=== PATIENT | male | born 1960 | race Caucasian/White ===

== ENCOUNTER 2020-08-18 09:54 | Outpatient (REF) | payer BC, SELFPAY | END 2020-08-18 09:55 | disposition home or self-care (01) | LOC: HO.LAB 09:54 | PROVIDERS: Visit Provider Internal Medicine | DX: Z20.822 Contact with and (suspected) exposure to COVID-19 (principal) | CPT/HCPCS: 36415; C9803; U0003; U0005 ==

== ENCOUNTER → 2021-01-03 09:20 | Outpatient (BNVA) | payer OTHER, SELFPAY | PROVIDERS: PCP Internal Medicine; Visit Provider Internal Medicine | DX: S29.012A Strain of muscle and tendon of back wall of thorax, initial encounter (principal); X50.3XXA Overexertion from repetitive movements, initial encounter | CPT/HCPCS: 99203 ==

== ENCOUNTER → 2021-01-06 08:04 | Outpatient (BNVA) | payer OTHER, SELFPAY | PROVIDERS: PCP Internal Medicine; Visit Provider Physician Assistant Medical | DX: S29.012A Strain of muscle and tendon of back wall of thorax, initial encounter (principal); X58.XXXA Exposure to other specified factors, initial encounter | CPT/HCPCS: 99213 ==

== ENCOUNTER 2021-04-04 10:24 | Outpatient (REF) | payer BC, SELFPAY ==
[2021-04-04 10:28] LABS: MANUAL DIFF FLAG NO
[2021-04-04 10:54] LABS: Basophils Percent Auto 0.3 % (0-2); Eosinophils Absolute Auto 0.2 X10*3/uL (0.0-0.4); Eosinophils Percent Auto 3.5 % (0-4); Hematocrit 45.4 % (42-52); Hemoglobin 15.3 g/dl (14.0-18.0); Imm Gran Abs Auto 0.02 X10*3/uL (0.00-0.03); Imm Gran Pct Auto 0.3 % (0.0-0.4); Lymphocytes Percent Auto 32.6 % (20-40); Mean Corpuscular HGB Conc 33.7 g/dl (31.0-36.0); Mean Corpuscular Hemoglobin 29.9 pg (27.0-33.0); Mean Corpuscular Volume 88.7 fL (80-98); Mean Platelet Volume 10.2 fL (9.4-12.4); Monocytes Absolute Auto 0.7 X10*3/uL (0.1-1.2); Monocytes Percent Auto 10.9 % (2-11); Neutrophils Absolute Auto 3.1 X10*3/uL (2.0-8.3); Neutrophils Percent Auto 52.4 % (45-73); Platelet Count 148 X10*3/uL (160-400); Red Blood Count 5.12 X10*6/uL (4.60-5.80); Red Cell Distribution Width 13.2 % (11.0-16.0)
[2021-04-04 11:17] LABS: Appearance Urine CLEAR; Color Urine YELLOW; Glucose Urine UA NEG (NEG); Leukocyte Esterase Urine NEG (NEG); Nitrite Urine NEG (NEG); PH 5.5 (5.0-8.0); Specific Gravity - Urine >= 1.030 (1.005-1.025); Urine Blood TRACE (NEG); Urine Ketones NEG (NEG); Urine Protein NEG (NEG-TRACE)
[2021-04-04 11:30] LABS: Alanine Aminotransferase 20 U/L (0-40); Anion Gap 12 (12-20); Aspartate Amino Transferase 20 U/L (5-37); Bilirubin Total 0.8 mg/dL (0.0-1.0); Blood Urea Nitrogen 20 mg/dL (9-16); Calcium 8.9 mg/dL (8.4-10.2); Carbon Dioxide 26 mmol/L (22-29); Chloride 106 mmol/L (96-108); Cholesterol 216 mg/dL; Estimated Glomerular Filt Rate 59; Glucose Fasting 120 mg/dL (60-99); HDL Cholesterol 46 mg/dL; Potassium 4.2 mmol/L (3.3-5.1); Sodium 140 mmol/L (135-145); Triglycerides 144 mg/dL
[2021-04-04 11:31] LABS: Alkaline Phosphatase 56 U/L (39-117); LDL Cholesterol Calculated 142 mg/dl
[2021-04-04 11:48] LABS: Estimated Average Glucose 111 mg/dL; Hemoglobin A1c % 5.5 %
[2021-04-04 11:56] LABS: Creatinine Urine 204.87 mg/dL; Microalbum/Creatinine Ratio Ur 2.4 ug/mg cr
[2021-04-04 12:17] LABS: Amorphous Sediment Urine TRACE /LPF; Mucus Urine 1+ /LPF; RBC Urine 0-2 /HPF (0); WBC Urine 0-2 /HPF (0-4)
[2021-04-04 12:39] LABS: PSA,Total (Free>4and<10) 0.21 ng/mL (0.00-4.00)
== END 2021-04-04 10:25 | disposition home or self-care (01) ==
LOC: HO.LNP 10:24
PROVIDERS: Visit Provider Internal Medicine
DX: Z00.00 Encounter for general adult medical examination without abnormal findings (principal); Z12.5 Encounter for screening for malignant neoplasm of prostate; R73.03 Prediabetes; R94.5 Abnormal results of liver function studies
CPT/HCPCS: 80053; 80061; 81001; 81003; 82043; 83036; 84153; 85025

== ENCOUNTER 2021-05-22 10:14 | Outpatient (REF) | payer OTHER, SELFPAY ==
[2021-05-22 10:17] LABS: MANUAL DIFF FLAG NO
[2021-05-22 11:01] LABS: Basophils Percent Auto 0.7 % (0-2); Eosinophils Absolute Auto 0.2 X10*3/uL (0.0-0.4); Eosinophils Percent Auto 3.9 % (0-4); Hematocrit 45.2 % (42.0-52.0); Imm Gran Abs Auto 0.01 X10*3/uL (0.00-0.03); Imm Gran Pct Auto 0.2 % (0.0-0.4); Lymphocytes Absolute Auto 1.9 X10*3/uL (1.2-4.9); Lymphocytes Percent Auto 33.8 % (20-40); Mean Corpuscular HGB Conc 33.2 g/dl (31.0-36.0); Mean Corpuscular Hemoglobin 29.4 pg (27.0-33.0); Mean Corpuscular Volume 88.6 fL (80.0-98.0); Mean Platelet Volume 10.1 fL (9.4-12.4); Monocytes Absolute Auto 0.5 X10*3/uL (0.1-1.2); Monocytes Percent Auto 8.9 % (2-11); Neutrophils Percent Auto 52.5 % (45-73); Platelet Count 177 X10*3/uL (160-400); Red Cell Distribution Width 12.6 % (11.0-16.0); White Blood Count 5.6 X10*3/uL (4.8-10.8)
== END 2021-05-22 10:15 | disposition home or self-care (01) ==
LOC: HO.LNP 10:14
PROVIDERS: Visit Provider Internal Medicine
DX: D69.6 Thrombocytopenia, unspecified (principal)
CPT/HCPCS: 85025

== ENCOUNTER 2021-07-20 10:03 | Outpatient (REF) | payer BC, SELFPAY ==
[2021-07-20 12:36] LABS: Binax Internal Control QC Valid; Binax Now Covid-19 Ag Positive (Negative)
== END 2021-07-20 10:04 | disposition home or self-care (01) ==
LOC: HO.LAB 10:03
PROVIDERS: Visit Provider Internal Medicine
DX: Z20.822 Contact with and (suspected) exposure to COVID-19 (principal)
CPT/HCPCS: 36415; C9803

== ENCOUNTER 2022-04-05 13:17 | Outpatient (REF) | payer BC, SELFPAY ==
[2022-04-05 13:53] LABS: Alanine Aminotransferase 14 U/L (0-40); Albumin Level 4.1 g/dL (3.5-5.0); Alkaline Phosphatase 52 U/L (39-117); Anion Gap 16 (12-20); Aspartate Amino Transferase 19 U/L (5-37); Bilirubin Total 0.9 mg/dL (0.0-1.0); Blood Urea Nitrogen 15 mg/dL (9-16); Calcium 9.3 mg/dL (8.4-10.2); Carbon Dioxide 26 mmol/L (22-29); Chloride 104 mmol/L (96-108); Estimated Glomerular Filt Rate 60; Glucose Fasting 90 mg/dL (60-99); Potassium 3.9 mmol/L (3.3-5.1); Sodium 142 mmol/L (135-145); Total Protein 7.3 g/dL (6.5-8.0)
[2022-04-05 13:54] LABS: Basophils Absolute Auto 0.1 X10*3/uL (0.0-0.2); Basophils Percent Auto 0.9 % (0-2); Eosinophils Absolute Auto 0.2 X10*3/uL (0.0-0.4); Eosinophils Percent Auto 3.3 % (0-4); Hematocrit 46.9 % (42.0-52.0); Hemoglobin 15.5 g/dl (14.0-18.0); Imm Gran Abs Auto 0.02 X10*3/uL (0.00-0.03); Imm Gran Pct Auto 0.3 % (0.0-0.4); Lymphocytes Absolute Auto 1.9 X10*3/uL (1.2-4.9); Lymphocytes Percent Auto 33.4 % (20-40); MANUAL DIFF FLAG SCAN; Mean Corpuscular Volume 87.8 fL (80.0-98.0); Monocytes Absolute Auto 0.5 X10*3/uL (0.1-1.2); Monocytes Percent Auto 8.2 % (2-11); Neutrophils Absolute Auto 3.1 x10*3/uL (2.0-8.3); Neutrophils Percent Auto 53.9 % (45-73); PLT CLUMP 1; Red Blood Count 5.34 X10*6/uL (4.60-5.80); Red Cell Distribution Width 13.4 % (11.0-16.0); SCAN SMEAR FLAG 1
[2022-04-05 13:55] LABS: Estimated Average Glucose 100 mg/dL; Hemoglobin A1c % 5.1 %
[2022-04-05 13:57] LABS: White Blood Count 5.8 X10*3/uL (4.8-10.8)
[2022-04-05 14:15] LABS: PSA,Total (Free>4and<10) 0.18 ng/mL (0.00-4.00)
[2022-04-05 14:23] LABS: SLIDE REVIEW VERIFIED
== END 2022-04-05 13:18 | disposition home or self-care (01) ==
LOC: HO.LNP 13:17
PROVIDERS: Visit Provider Internal Medicine
DX: Z00.00 Encounter for general adult medical examination without abnormal findings (principal); Z12.5 Encounter for screening for malignant neoplasm of prostate; R73.03 Prediabetes; R94.5 Abnormal results of liver function studies
CPT/HCPCS: 80053; 83036; 84153; 85025

== ENCOUNTER 2022-04-12 11:08 | Outpatient (REF) | payer BC, SELFPAY ==
[2022-04-12 11:23] LABS: Basophils Absolute Auto 0.1 X10*3/uL (0.0-0.2); Basophils Percent Auto 0.9 % (0-2); Eosinophils Absolute Auto 0.2 X10*3/uL (0.0-0.4); Eosinophils Percent Auto 4.1 % (0-4); Hematocrit 44.3 % (42.0-52.0); Hemoglobin 14.8 g/dl (14.0-18.0); Imm Gran Abs Auto 0.02 X10*3/uL (0.00-0.03); Imm Gran Pct Auto 0.4 % (0.0-0.4); Lymphocytes Absolute Auto 1.8 X10*3/uL (1.2-4.9); Lymphocytes Percent Auto 32.5 % (20-40); MANUAL DIFF FLAG SCAN; Mean Corpuscular HGB Conc 33.4 g/dl (31.0-36.0); Mean Corpuscular Hemoglobin 29.2 pg (27.0-33.0); Mean Corpuscular Volume 87.4 fL (80.0-98.0); Monocytes Absolute Auto 0.6 X10*3/uL (0.1-1.2); Monocytes Percent Auto 11.2 % (2-11); Neutrophils Absolute Auto 2.9 x10*3/uL (2.0-8.3); Neutrophils Percent Auto 50.9 % (45-73); PLT CLUMP 1; Red Blood Count 5.07 X10*6/uL (4.60-5.80); Red Cell Distribution Width 13.3 % (11.0-16.0); SCAN SMEAR FLAG 1
[2022-04-12 11:58] LABS: White Blood Count 5.6 X10*3/uL (4.8-10.8)
[2022-04-12 12:06] LABS: SLIDE REVIEW VERIFIED
== END 2022-04-12 11:09 | disposition home or self-care (01) ==
LOC: HO.LNP 11:08
PROVIDERS: Visit Provider Internal Medicine
DX: Z00.00 Encounter for general adult medical examination without abnormal findings (principal)
CPT/HCPCS: 85025

== ENCOUNTER 2022-04-16 10:40 | Outpatient (REF) | payer BC, SELFPAY ==
[2022-04-16 10:55] LABS: INTERNATIONAL NORM RATIO 0.9 (0.9-1.1); Prothrombin Time 10.8 SEC (10.0-13.1)
== END 2022-04-16 10:41 | disposition home or self-care (01) ==
LOC: HO.LNP 10:40
PROVIDERS: Visit Provider Internal Medicine
DX: D69.1 Qualitative platelet defects (principal)
CPT/HCPCS: 85610

== ENCOUNTER 2023-04-26 10:40 | Outpatient (REF) | payer BC, SELFPAY ==
[2023-04-26 10:43] LABS: MANUAL DIFF FLAG NO
[2023-04-26 11:19] LABS: Appearance Urine Clear; Color Urine Dark Yellow; Glucose Urine UA Negative (Negative); Leukocyte Esterase Urine Negative (Negative); Nitrite Urine Negative (Negative); Specific Gravity - Urine 1.025 (1.005-1.025); Urine Blood Negative (Negative); Urine Ketones Negative (Negative); Urine Protein Negative (Neg-Trace)
[2023-04-26 11:24] LABS: Basophils Percent Auto 0.6 % (0-2); Eosinophils Absolute Auto 0.2 X10*3/uL (0.0-0.4); Hematocrit 44.1 % (42.0-52.0); Hemoglobin 14.8 g/dl (14.0-18.0); Imm Gran Abs Auto 0.01 X10*3/uL (0.00-0.03); Imm Gran Pct Auto 0.2 % (0.0-0.4); Lymphocytes Absolute Auto 1.6 X10*3/uL (1.2-4.9); Lymphocytes Percent Auto 31.2 % (20-40); Mean Corpuscular HGB Conc 33.6 g/dl (31.0-36.0); Mean Corpuscular Hemoglobin 29.7 pg (27.0-33.0); Mean Corpuscular Volume 88.4 fL (80.0-98.0); Mean Platelet Volume 9.7 fL (9.4-12.4); Monocytes Absolute Auto 0.5 X10*3/uL (0.1-1.2); Monocytes Percent Auto 9.3 % (2-11); Neutrophils Absolute Auto 2.7 x10*3/uL (2.0-8.3); Neutrophils Percent Auto 54.7 % (45-73); Platelet Count 140 X10*3/uL (160-400); Red Blood Count 4.99 X10*6/uL (4.60-5.80); Red Cell Distribution Width 13.2 % (11.0-16.0)
[2023-04-26 11:25] LABS: Bacteria Urine None Seen (None Seen); Hyaline Casts Urine 0-2 /LPF (0-2); RBC Urine 0-2 /HPF (0-2); Squamous Epithelial Cell Urine 0-2 /HPF (0-2); WBC Urine 0-5 /HPF (0-5)
[2023-04-26 11:29] LABS: Estimated Average Glucose 105 mg/dL; Hemoglobin A1c % 5.3 % (<6.0)
[2023-04-26 11:34] LABS: Alanine Aminotransferase 20 U/L (0-40); Albumin Level 4.2 g/dL (3.5-5.0); Alkaline Phosphatase 53 U/L (39-117); Anion Gap 13 (12-20); Aspartate Amino Transferase 22 U/L (5-37); Bilirubin Direct 0.3 mg/dL (0.0-0.5); Blood Urea Nitrogen 20 mg/dL (9-16); Calcium 9.3 mg/dL (8.4-10.2); Carbon Dioxide 25 mmol/L (22-29); Chloride 107 mmol/L (96-108); Estimated Glomerular Filt Rate > 60; Glucose Fasting 103 mg/dL (60-99); Potassium 3.8 mmol/L (3.3-5.1); Sodium 141 mmol/L (135-145); Total Protein 7.7 g/dL (6.5-8.0)
[2023-04-26 11:56] LABS: PSA,Total (Free>4and<10) 0.24 ng/mL (0.00-4.00)
[2023-04-26 12:24] LABS: Microalbum/Creatinine Ratio Ur 2.1 ug/mg cr (<30)
== END 2023-04-26 10:41 | disposition home or self-care (01) ==
LOC: HO.LNP 10:40
PROVIDERS: Visit Provider Internal Medicine
DX: Z00.00 Encounter for general adult medical examination without abnormal findings (principal); Z12.5 Encounter for screening for malignant neoplasm of prostate; R73.03 Prediabetes; R84.5 Abnormal microbiological findings in specimens from respiratory organs and thorax; D69.6 Thrombocytopenia, unspecified
CPT/HCPCS: 80053; 80076; 81001; 82043; 82248; 82570; 83036; 84153; 85025

== ENCOUNTER 2024-02-24 06:19 | Day surgery (SDC) | payer BC, SELFPAY ==
[2024-02-20 08:40] VITALS: BMI 33.3
--- NOTE | 2024-02-21 08:52 | HO.ANESPROP2 ---
Documented by User: Bertha Rivera NP 02/21/24 08:52 HPI - Anesthesia Eval Consult details Narrative: 63yo M for Colonoscopy [facility] Past Medical History Medical History History of Mohs micrographic surgery for skin cancer Skin cancer, basal cell Fatty liver Anxiety Surgical History Surgical History Hx of bilateral cataract extraction Hx of left inguinal hernia repair H/O colonoscopy Social History Social History Household Members: Spouse Patient Tobacco Use Status: Former Tobacco user Tobacco use type: Cigarette Are you DNR?: No Advance Directives: No Advance Directives Information Provided: Yes Nutrition Risks: No Nutritional Risk Meds Allergies Allergy/AdvReac Type Severity Reaction Status Date / Time No Known Allergies Allergy Mild NKA Unverified 03/31/20 15:17 Home Medications ?Medication ?Instructions ?Recorded ?Confirmed ?Last Taken ?Type escitalopram oxalate 20 mg tablet 20 mg PO DAILY 02/20/24 02/20/24 02/23/24 History Exam Height,Weight and Vital Signs: Height 5 ft 7.5 in Weight 97.976 kg Assessment and Plan Assessment Anesthesia Assessment: Chart Reviewed Documented by User: Jaci Hair MD 02/24/24 08:14 [facility] Past Medical History Medical History History of Mohs micrographic surgery for skin cancer Skin cancer, basal cell Fatty liver Anxiety Family History Family history of problems with anesthesia: No Surgical History Surgical History Hx of bilateral cataract extraction Hx of left inguinal hernia repair H/O colonoscopy History of Problems with Anesthesia: No Social History Social History Household Members: Spouse Patient Tobacco Use Status: Former Tobacco user Tobacco use type: Cigarette Are you DNR?: No Advance Directives: No Advance Directives Information Provided: Yes Nutrition Risks: No Nutritional Risk Meds Allergies Allergy/AdvReac Type Severity Reaction Status Date / Time No Known Allergies Allergy Mild NKA Unverified 03/31/20 15:17 Home Medications ?Medication ?Instructions ?Recorded ?Confirmed ?Last Taken ?Type escitalopram oxalate 20 mg tablet 20 mg PO DAILY 02/20/24 02/20/24 02/23/24 History Exam Height,Weight and Vital Signs: Height 5 ft 7.5 in Weight 97.976 kg Vital Signs Temp Pulse Resp BP Pulse Ox O2 Del Method 02/24/24 06:26 98.2 F 69 18 139/84 96 Room Air Airway Mallampati Class: II TM Dist: >3cm Neck ROM: Full Loose/Missing/Broken Teeth: No (Recent root canal. Caps intact) Heart: RRR Lungs: CTAB Assessment and Plan Assessment Anesthesia Assessment: Anesthesia Plan Discussed and Chart Reviewed Final Anesthetic Review Family History of Problems with Anesthesia: No History of Problems with Anesthesia: No NPO: Yes ASA Class: II Final Preanesthetic Review: No Changes in Pt Med Stat, Meds/Allgs Chart Reviewed, Consent Obtained/Reviewed and Anes Risks/Benef Reviewed Patient Risk: Low Procedure Risk: Low Assessment/Block/Sedation in SS: Assess/Block/Sedation-SS Anesthetic Plan Anesthetic Plan: TIVA Disposition: Standard PACU
[2024-02-24 06:26] VITALS: BP 139/84; PULSE 69; RESP 18; TEMP 36.8; O2SAT 96; BMI 32.1
[2024-02-24] MEDS: Lactated Ringers 1,000 ML 100 ML IVCONT (06:46)
[2024-02-24 08:21] VITALS: BP 122/76; PULSE 68; RESP 16; TEMP 36.6; O2SAT 97
--- NOTE | 2024-02-24 08:26 | P.BOP_ITS ---
Brief Operative Note Date of Service: 02/24/24 Pre-op diagnosis: Screening Post-op diagnosis: other (Diverticulosis) Procedure: Colonoscopy to the cecum and TI Surgeon: Abdiel Casper MD Anesthesia: MAC Was an Maternal Fetal Physician used for this Procedure?: No Estimated blood loss (mL): 0 Pathology: none sent Condition: stable Disposition: PACU
[2024-02-24 08:36] VITALS: BP 128/82; PULSE 59; RESP 17; TEMP 36.6; O2SAT 95
--- NOTE | 2024-02-24 08:51 | OP_ITS ---
DATE OF SERVICE: 02/24/2024 SURGEON: Abdiel Casper MD INDICATIONS: The patient presents for evaluation of colorectal cancer screening and personal history of tubular adenoma of the colon. Full consent was obtained from him for this, including risks of bleeding and perforation. PREOPERATIVE DIAGNOSIS: POSTOPERATIVE DIAGNOSIS: PROCEDURE PERFORMED: Colonoscopy to cecum and terminal ileum. ESTIMATED BLOOD LOSS: COMPLICATIONS: ANESTHESIA: Medication used, monitored anesthesia care. ASSISTANTS: SPECIMENS: PREOPERATIVE DIAGNOSES: Colorectal cancer screening and personal history of tubular adenoma of the colon. POSTOPERATIVE DIAGNOSES: Colorectal cancer screening and personal history of tubular adenoma of the colon, mild sigmoid diverticulosis and small internal hemorrhoids. DESCRIPTION OF PROCEDURE: The patient was placed in the left lateral decubitus position. The digital rectal exam revealed no abnormalities. The Olympus video pediatric colonoscope was entered into the rectum and advanced easily to the cecum. Once in the cecum I did identify normal-appearing cecal pouch with appendiceal orifice and a normal-appearing ileocecal valve. The terminal ileum was cannulated and appeared normal. Scope was withdrawn back in the colon. The entire cecum and ileocecal valve appeared normal. The scope was slowly withdrawn assessing all mucosal surfaces carefully. Preparation was excellent. I did not visualize any sign of polyps, colitis, nor angiodysplasia. There was a mild amount of sigmoid diverticulosis. In the rectum scope was retroflexed visualizing small internal hemorrhoids, but no other pathology. The rectal mucosa appeared normal. The scope was straightened and withdrawn from the patient. He tolerated the procedure well and was returned to recovery area in stable condition. IMPRESSION: 1. Mild diverticulosis. 2. Internal hemorrhoids. PLAN: Given today's negative exam, a previous history of a tubular adenoma I would recommend a followup coloscopy in 5 years. He will otherwise see me on a p.r.n. basis. This has been discussed with his . MD KAE Alexander/CATHY / [phone]
== END 2024-02-24 08:57 | disposition home or self-care (01) ==
PROVIDERS: PCP Internal Medicine; Visit Provider Internal Medicine
PROC: 0DJD8ZZ Inspection of Lower Intestinal Tract, Via Natural or Artificial Opening Endoscopic (ICD-10-PCS; CPT 45378; principal; 2024-02-24 07:30)
DX: Z12.11 Encounter for screening for malignant neoplasm of colon (principal); Z86.010 Personal history of colon polyps; K57.30 Diverticulosis of large intestine without perforation or abscess without bleeding; K64.8 Other hemorrhoids; K76.0 Fatty (change of) liver, not elsewhere classified; F41.9 Anxiety disorder, unspecified; Z85.828 Personal history of other malignant neoplasm of skin; Z79.899 Other long term (current) drug therapy; Z98.890 Other specified postprocedural states; Z87.891 Personal history of nicotine dependence
CPT/HCPCS: 45378; J2704

== ENCOUNTER 2024-04-28 11:19 | Outpatient (REF) | payer BC, SELFPAY ==
[2024-04-28 11:23] LABS: MANUAL DIFF FLAG NO
[2024-04-28 11:41] LABS: Basophils Absolute Auto 0.1 X10*3/uL (0.0-0.2); Basophils Percent Auto 0.8 % (0-2); Eosinophils Absolute Auto 0.3 X10*3/uL (0.0-0.4); Eosinophils Percent Auto 4.2 % (0-4); Hematocrit 48.2 % (42.0-52.0); Hemoglobin 16.2 g/dl (14.0-18.0); Imm Gran Abs Auto 0.04 X10*3/uL (0.00-0.03); Imm Gran Pct Auto 0.6 % (0.0-0.4); Lymphocytes Absolute Auto 2.2 X10*3/uL (1.2-4.9); Lymphocytes Percent Auto 32.9 % (20-40); Mean Corpuscular HGB Conc 33.6 g/dl (31.0-36.0); Mean Corpuscular Volume 89.3 fL (80.0-98.0); Mean Platelet Volume 9.9 fL (9.4-12.4); Monocytes Absolute Auto 0.7 X10*3/uL (0.1-1.2); Monocytes Percent Auto 10.2 % (2-11); Neutrophils Absolute Auto 3.4 x10*3/uL (2.0-8.3); Neutrophils Percent Auto 51.3 % (45-73); Platelet Count 166 X10*3/uL (160-400); Red Cell Distribution Width 13.5 % (11.0-16.0); White Blood Count 6.6 X10*3/uL (4.8-10.8)
[2024-04-28 11:44] LABS: Appearance Urine Clear; Color Urine Yellow; Glucose Urine UA Negative (Negative); Leukocyte Esterase Urine Negative (Negative); Nitrite Urine Negative (Negative); PH 5.5 (5.0-9.0); Specific Gravity - Urine 1.025 (1.005-1.025); Urine Blood Negative (Negative); Urine Ketones Negative (Negative); Urine Protein Negative (Neg-Trace)
[2024-04-28 11:51] LABS: Bacteria Urine None Seen (None Seen); Estimated Average Glucose 114 mg/dL; Hemoglobin A1C 150.3061 umol/L; Hemoglobin A1c % 5.6 % (<6.0); Hyaline Casts Urine 0-2 /LPF (0-2); RBC Urine 0-2 /HPF (0-2); Squamous Epithelial Cell Urine 0-2 /HPF (0-2); Total Hemoglobin (HGBA1C) 4021.5499 umol/L; WBC Urine 0-5 /HPF (0-5)
[2024-04-28 11:52] LABS: Alanine Aminotransferase 22 U/L (0-40); Albumin Level 4.1 g/dL (3.5-5.0); Alkaline Phosphatase 71 U/L (39-117); Anion Gap 11 (12-20); Aspartate Amino Transferase 19 U/L (5-37); Bilirubin Total 0.5 mg/dL (0.0-1.0); Blood Urea Nitrogen 17 mg/dL (9-16); Calcium 9.3 mg/dL (8.4-10.2); Carbon Dioxide 28 mmol/L (22-29); Chloride 107 mmol/L (96-108); Cholesterol 204 mg/dL (<200); Estimated Glomerular Filt Rate 54; Glucose Fasting 146 mg/dL (60-99); HDL Cholesterol 49 mg/dL (>40); LDL Cholesterol Calculated 123 mg/dL (<100); Potassium 4.6 mmol/L (3.3-5.1); Sodium 141 mmol/L (135-145); Total Protein 7.5 g/dL (6.5-8.0); Triglycerides 163 mg/dL (<150)
[2024-04-28 12:11] LABS: PSA,Total (Free>4and<10) 0.25 ng/mL (0.00-4.00)
[2024-04-28 12:12] LABS: Creatinine Urine 316.91 mg/dL; Microalbum/Creatinine Ratio Ur 3.4 ug/mg cr (<30)
== END 2024-04-28 11:20 | disposition home or self-care (01) ==
LOC: HO.LNP 11:19
PROVIDERS: Visit Provider Internal Medicine
DX: Z00.00 Encounter for general adult medical examination without abnormal findings (principal); R73.09 Other abnormal glucose; D69.6 Thrombocytopenia, unspecified; Z12.5 Encounter for screening for malignant neoplasm of prostate
CPT/HCPCS: 80053; 80061; 81001; 82043; 82570; 83036; 84153; 85025

== ENCOUNTER 2024-06-21 07:54 | Emergency (ER) | payer OTHER, BC, SELFPAY ==
--- NOTE | ~2024-06-21 | XR_ITS ---
EXAMINATION: X-ray right humerus X-ray right elbow X-ray right forearm CLINICAL INFORMATION: Fall COMPARISON: None TECHNIQUE: Humerus 3 views. Forearm 2 views. Elbow 1 AP view. FINDINGS: There is a 1.5 cm ossification, posterior to the distal humerus, located approximately 3 cm proximal to the olecranon process. This could represent sequela of avulsion fracture, of indeterminate age. Clinically correlate. Mild soft tissue swelling in this region. No acute humeral fracture is identified. No suspicious bony lesions. Humeral head articulates with the glenoid. Mild acromioclavicular arthritis. Small chronic appearing ossification along the superior aspect of the acromioclavicular joint.. No significant elbow joint effusion is identified. No additional acute elbow fracture is identified. No acute radial fracture is identified. No radial fracture is seen. No additional fractures identified in the more distal aspect of the forearm. Wrist articulation is maintained. XR/XR humerus RT IMPRESSION: 1. A 1.4 cm ossification posteriorly at the level of the distal humerus. This is located approximately 3 cm proximal to the olecranon process. These findings could represent sequela of avulsion fracture. This of indeterminate age. Clinically correlate. Additional imaging as clinically warranted. 2. No additional acute fracture is identified. Electronically signed by: Nathaniel Vargas MD 06/21/2024 10:58 AM TI SHELL
--- NOTE | ~2024-06-21 | XR_ITS ---
EXAMINATION: X-ray right humerus X-ray right elbow X-ray right forearm CLINICAL INFORMATION: Fall COMPARISON: None TECHNIQUE: Humerus 3 views. Forearm 2 views. Elbow 1 AP view. FINDINGS: There is a 1.5 cm ossification, posterior to the distal humerus, located approximately 3 cm proximal to the olecranon process. This could represent sequela of avulsion fracture, of indeterminate age. Clinically correlate. Mild soft tissue swelling in this region. No acute humeral fracture is identified. No suspicious bony lesions. Humeral head articulates with the glenoid. Mild acromioclavicular arthritis. Small chronic appearing ossification along the superior aspect of the acromioclavicular joint.. No significant elbow joint effusion is identified. No additional acute elbow fracture is identified. No acute radial fracture is identified. No radial fracture is seen. No additional fractures identified in the more distal aspect of the forearm. Wrist articulation is maintained. XR/XR elbow RT 2V IMPRESSION: 1. A 1.4 cm ossification posteriorly at the level of the distal humerus. This is located approximately 3 cm proximal to the olecranon process. These findings could represent sequela of avulsion fracture. This of indeterminate age. Clinically correlate. Additional imaging as clinically warranted. 2. No additional acute fracture is identified. Electronically signed by: Nathaniel Vargas MD 06/21/2024 10:58 AM TI SHELL
--- NOTE | ~2024-06-21 | XR_ITS ---
EXAMINATION: X-ray right humerus X-ray right elbow X-ray right forearm CLINICAL INFORMATION: Fall COMPARISON: None TECHNIQUE: Humerus 3 views. Forearm 2 views. Elbow 1 AP view. FINDINGS: There is a 1.5 cm ossification, posterior to the distal humerus, located approximately 3 cm proximal to the olecranon process. This could represent sequela of avulsion fracture, of indeterminate age. Clinically correlate. Mild soft tissue swelling in this region. No acute humeral fracture is identified. No suspicious bony lesions. Humeral head articulates with the glenoid. Mild acromioclavicular arthritis. Small chronic appearing ossification along the superior aspect of the acromioclavicular joint.. No significant elbow joint effusion is identified. No additional acute elbow fracture is identified. No acute radial fracture is identified. No radial fracture is seen. No additional fractures identified in the more distal aspect of the forearm. Wrist articulation is maintained. XR/XR forearm RT 2V IMPRESSION: 1. A 1.4 cm ossification posteriorly at the level of the distal humerus. This is located approximately 3 cm proximal to the olecranon process. These findings could represent sequela of avulsion fracture. This of indeterminate age. Clinically correlate. Additional imaging as clinically warranted. 2. No additional acute fracture is identified. Electronically signed by: Nathaniel Vargas MD 06/21/2024 10:58 AM TI SHELL
[2024-06-21 07:57] VITALS: BP 139/81; PULSE 83; RESP 18; O2SAT 99; BMI 32.9
--- NOTE | 2024-06-21 08:02 | ED_ITS ---
HPI - Extremity Problem General Chief complaint: Extremity Injury, Upper Stated complaint: arm inj - work Time Seen by Provider: 06/21/24 08:02 Source: patient Mode of arrival: ambulatory Limitations: no limitations History of Present Illness ED Provider: Kalli Norwood PA-C HPI Narrative: Patient is a 64 year old assigned male at with a history of anxiety presenting to the emergency department today with right elbow pain. Patient states that he slipped on the ice and landed on his right elbow and buttocks. Patient states that his right elbow instantly hurt and made him feel sick. Patient denies any head strike or loss of consciousness with the incident. Patient denies any dizziness, lightheadedness, abdominal pain, nausea, vomiting, fever, chills, blurry vision, double vision, loss of vision, chest pain, difficulty breathing, shortness of breath, back pain, night sweats, pain with urination, increased urinary frequency, increased urinary urgency, blood in her urine or stool, syncope or a near syncopal episode, bowel incontinence, bladder incontinence, or any other complaints at this time. Location: right and elbow Relieving factors: immobilization Exacerbating factors: range of motion Associated symptoms: denies other symptoms Related Data Home Medications ?Medication ?Instructions ?Recorded ?Confirmed escitalopram oxalate 20 mg tablet 20 mg PO DAILY 02/20/24 02/20/24 Allergies Allergy/AdvReac Type Severity Reaction Status Date / Time No Known Allergies Allergy Mild NKA Verified 06/21/24 07:58 Review of Systems Constitutional: Constitutional: Reports no additional constitutional complaints, Denies chills, Denies fever(s) and Denies night sweats Eyes: Eyes: Reports no additional eye complaints, Denies blurry vision, Denies change in vision, Denies diplopia, Denies eye discharge, Denies loss of vision and Denies eye pain ENT: Denies dizziness Cardiovascular: Cardiovascular: Reports no additional cardiovascular complaints, Denies chest pain, Denies lightheadedness, Denies Loss of Consciousness and Denies dyspnea Respiratory: Respiratory: Reports no additional respiratory complaints and Denies dyspnea Gastrointestinal: Gastrointestinal: Reports no additional gastrointestinal complaints, Denies abdominal pain, Denies melena, Denies hematochezia, Denies change in bowel habits and Denies change in stool character Genitourinary: Genitourinary: Reports no additional male genitourinary complaints, Denies hematuria, Denies oliguria, Denies difficulty urinating, Denies dysuria, Denies urinary frequency, Denies urinary hesitancy, Denies urinary incontinence and Denies urinary urgency Musculoskeletal: Musculoskeletal: Reports no additional musculoskeletal complaints, Denies numbness and Denies tingling Comments: right elbow pain Neurologic: Denies dizziness, Denies loss of vision, Denies numbness and Denies tingling Psychiatric: Psychiatric: Reports no additional psychiatric complaints Endocrine: Endocrine: Reports no additional endocrine complaints Hematologic/Lymphatic: Hematologic/Lymphatic: Reports no additional hematologic/lymphatic complaints Allergic/Immunologic: Allergic/Immunologic: Reports no additional allergic/immunologic complaints PMFSH Past Medical History Attestation statement: The following information was validated with the patient. Source: old records reviewed and nursing notes reviewed Medical History History of Mohs micrographic surgery for skin cancer Skin cancer, basal cell Fatty liver Anxiety Surgical History Hx of bilateral cataract extraction Hx of left inguinal hernia repair H/O colonoscopy Social History Social History Household Members: Spouse Alcohol intake: current Alcohol intake frequency: a few times a month Patient Tobacco Use Status: Former Tobacco user Tobacco use type: Cigarette Smoked in Last 30 Days: No Use of substances other than those prescribed or required for medical reasons: No Advance Directives: No Advance Directives Information Provided: No Physical Exam Vital Signs: Vital Signs: Last Vital Signs Temp 98.4 F 06/21/24 08:49 Pulse 67 06/21/24 08:49 Resp 18 06/21/24 08:49 BP 145/77 H 06/21/24 08:49 Pulse Ox 96 06/21/24 08:49 O2 Del Method Room Air 06/21/24 08:49 BMI result Body Mass Index 32.9 Const: General: cooperative, no acute distress, alert and awake Nutritional Appearance: well nourished Orientation/consciousness: patient oriented x3 Limitations: no limitations HEENT: Head: Yes normal to inspection and Yes atraumatic Ears: hearing grossly normal bilaterally and external ears normal General nose exam: Normal external nose present, no nasal discharge noted and no epistaxis Face and sinus: Yes normal facial exam, No abrasion and No laceration Mouth: Normal oral and palatal mucosa present, no drooling and no muffled voice Eyes: General: appearance normal, both eyes and all related structures Periorbital: periorbital findings normal Eyelids: Yes eyelids normal Conjunctivae: conjunctivae normal Pupils: Equal, round and reactive pupils present EOM: EOMs intact bilaterally Neck: Neck: Yes normal visual inspection, Yes full ROM and Yes no lymphadenopathy Chest: Chest palpation & inspection: normal inspection of the chest Resp: Effort & Inspection: normal respiratory effort and able to speak in complete sentences GI: Inspection: Yes normal to inspection Neuro: General: patient oriented x3 and moves all extremities Cranial nerves: Yes Equal, round and reactive pupils present Cognition (Neuro): normal cognition Extrem: Other: pain with right elbow ROM pain to palpation of the right elbow and distal humerus General: Yes normal to inspection and Yes capillary refill normal Psych: Appearance: grossly normal Mental Status: mental status grossly normal Affect: normal affect Attitude: cooperative Thought process: Normal thought process present Thought content: Normal thought content present Insight: Good insight present (Psych) Medical Decision Making Medical Decision Making MDM Narrative: Patient is a 64 year old assigned male at with a history of anxiety presenting to the emergency department today with right elbow pain after a slip and fall. Patient's physical exam was as noted in the physical exam portion of this note. Patient's right elbow, forearm, and humerus x-rays showed an olecr anon fracture. I confirmed with the orthopedic team that placing the patient's right upper extremity in a sling and having him follow up outpatient with their office was appropriate. I explained my physical exam findings as well as all test results to the patient. I answered all questions asked by the patient. Patient's right elbow was placed in a sling, without incident. Patient's PMS was intact prior to and after sling placement. I stressed the importance of the patient taking his medication as directed (either prescribed or as the over the counter packaging recommends). I stressed the importance of the patient following up with his primary care provider, an orthopedic provider, and given this was a work place injury - work connection. I stressed the importance of the patient returning to the emergency department immediately if his symptoms were to worsen or if he were to develop any dizziness, shortness of breath, difficulty breathing, chest pain, blurry vision, loss of vision, nausea, vomiting, abdominal pain, fever, chills, back pain, or any other complaints. Patient verbalized agreement and understanding with this treatment plan and discharge. Differential Diagnosis Differential Diagnoses: The differential diagnosis associated with the presentation includes Olecranon fracture Radial head fracture Humerus fracture Admission/Observation Consideration of admission/observation: Escalation of care including admission/observation considered Patient would have been admitted to the hospital had his work up had any findings where hospital admission was appropriate and his clinical presentation warranted hospital admission. Independent Interpretation I performed an independent interpretation of an: Plain X-Ray Interpretation: My interpretation is in agreement with the radiologist's impression of these imaging studies. EXAMINATION: X-ray right humerus X-ray right elbow X-ray right forearm CLINICAL INFORMATION: Fall COMPARISON: None TECHNIQUE: Humerus 3 views. Forearm 2 views. Elbow 1 AP view. FINDINGS: There is a 1.5 cm ossification, posterior to the distal humerus, located approximately 3 cm proximal to the olecranon process. This could represent sequela of avulsion fracture, of indeterminate age. Clinically correlate. Mild soft tissue swelling in this region. No acute humeral fracture is identified. No suspicious bony lesions. Humeral head articulates with the glenoid. Mild acromioclavicular arthritis. Small chronic appearing ossification along the superior aspect of the acromioclavicular joint.. No significant elbow joint effusion is identified. No additional acute elbow fracture is identified. No acute radial fracture is identified. No radial fracture is seen. No additional fractures identified in the more distal aspect of the forearm. Wrist articulation is maintained. XR/XR humerus RT IMPRESSION: 1. A 1.4 cm ossification posteriorly at the level of the distal humerus. This is located approximately 3 cm proximal to the olecranon process. These findings could represent sequela of avulsion fracture. This of indeterminate age. Clinically correlate. Additional imaging as clinically warranted. 2. No additional acute fracture is identified. Electronically signed by: Nathaniel Vargas MD 06/21/2024 10:58 AM EST Dictated By: Nathaniel Vargas MD Signed By: Electronically signed by Nathaniel Vargas MD 06/21/24 1058 Radiology Impression Discussion of test interpretation with radiology: I have reviewed the radiologist's reading. Discharge Plan Discharge Clinical Impression: Elbow fracture Patient Disposition: Home, Self-Care Instructions: Elbow Fracture (ED), How to Use a Sling (ED) Additional Instructions: For 5-10 minutes every 1 hour you should remove your sling and exercise your right shoulder only to prevent a frozen shoulder. Make sure when doing this you keep your elbow at a 90 degree angle and do not move the elbow joint. Follow up with your primary care provider, an orthopedic provider, and given this was a work place injury - with work coonection. Return to the emergency department immediately if your symptoms worsen or if you develop any dizziness, shortness of breath, difficulty breathing, chest pain, blurry vision, loss of vision, nausea, vomiting, abdominal pain, fever, chills, back pain, or any other complaints. Prescriptions: No Action escitalopram oxalate 20 mg tablet 20 mg PO DAILY Referrals: [facility] [Provider Group] (Call to establish and follow up with an orthopedic provider for your right elbow fracture.) [facility] [Provider Group] (Given this was a work place injury, call to establish and follow up with work connection.) Denys Christianson MD [Primary Care Provider] - Stand Alone Forms: Work/School Release Interventions: ED Discharge Assessment Last Done: 06/21/24 08:49 Discharge Date/Time: 06/21/24 08:50 Print Language: [place]
[2024-06-21 08:42] VITALS: BP 145/77; PULSE 67; RESP 18; TEMP 36.9; O2SAT 96
[2024-06-21 08:49] VITALS: BP 145/77; PULSE 67; RESP 18; TEMP 36.9; O2SAT 96
--- OUTSIDE RECORDS SUMMARY | 2024-06-24 12:03 | XMS_ITS ---
Author Organization Denys Christianson MD Address [address] [place], [place] [phone] Care Team Providers Care Bending Roll Hand Name Role Phone Denys Christianson Primary Care Provider [phone] ALLERGIES Allergen (clinical drug ingredient) Drug/Non Drug Allergy documented on EMR Reaction Allergy Type Onset Date Status bees (uncoded) body swelling Allergy A ctive RESULTS Component Value Reference Range Notes Occult Blood, Stool, Guaiac Reviewed date:05/15/2024 01:36:03 PM Interpretation:Negative Performing Lab: Notes/Report: Negative Occult Blood, Stool, Guaiac Neg REASON FOR VISIT annual visit MEDICATIONS Medication SIG (Take, Route, Frequency, Duration) Notes Start Date End Date Status Escitalopram Oxalate 20 MG TAKE 1 TABLET BY MOUTH EVERY DAY for 90 Active SOCIAL HISTORY Tobacco Use: Social History Observation Description Date Details (start date - stop date) Former Smoker NA - NA Sex Assigned At : Social History Observation Description Sex Assigned At Unknown Tobacco Use/Smoking Question Answer Notes Patient is [...] Never (0 point) Points 2 Interpretation Negative VITAL SIGNS BMI 33.33 kg/m2 05/15/2024 Blood pressure systolic 142 mm Hg 05/15/20 24 Blood pressure diastolic 78 mm Hg 024 Height 67.5 in 05/15/2024 Weight 216 lbs 05/15/2024 weight is up 7 pounds since 05-03-23 Encounters Encounter Location Date Provider Diagnosis Denys Christianson MD [address] [place] [address] [place] [phone] 05/15/2024 Denys Christianson Abnormal platelets D69.1 ; Annual physical exam Z00.00 ; Prediabetes R73.09 ; Colon cancer screening Z12.11 and Depression screening Z13.31 ASSESSMENTS Encounter Date Diagnosis Assessment Notes Treatment Notes Treatment Clinical Notes 05/15/2024 Abnormal platelets (ICD-10 - D69.1) has resolved 05/15/2024 Annual physical exam (ICD-10 - Z00.00) labs reviewed and discussed with patient 05/15/2024 Prediabetes (ICD-10 - R73.09) have advised to get back on diet and stop drinking 05/15/2024 Colon cancer screening (ICD-10 - Z12.11) guaiac negative 05/15/2024 Depression screening (ICD-10 - Z13.31) negative screen PLAN OF TREATMENT Treatment Notes Assessment Notes Abnormal platelets has resolved Annual physical exam labs reviewed and d iscussed with patient Prediabetes have advised to get back on diet and stop drinking Colon cancer screening guaiac negative Depression screening negative screen Next Appt Details Follow Up: 1 Year, Reason: Provider Name:Denys figueroa, 05/11/2025 08:00:00 AM, [address] [place] [address], [address] [place] [address], [phone], Provider Name:Denys figueroa, 05/18/2025 08:30:00 AM, [address] [place] [address], [place] [address], [place], [place], [phone], Progress Notes * Examination Category Sub-Category Detail Notes General Examination GENERAL APPEARANCE: well dev eloped, well nourished, in no acute distress HEAD: normocephalic, atrau matic EYES: pupils equal, round, reactive to light and accommodation, sclera non- icteric EARS: normal THROAT: clear NECK/THYROID: neck supple, [...] stool guaiac negative ORAL CAVITY: mucosa moist History and Physical Notes * HPI (History of Present Illness) Category Sub-Category Detail Notes Depression Screening PHQ-9 Little inte rest or [...] Total Score: 0 Interpretation and Intervention Depression Scree susan Findings: Negative Follow-Up for Depression: : [...] patient have a vision impairmen t?: Yes ?If yes, what is the vision impairment?: Glasses Does the patient have a cognition impair ment?: No
--- OUTSIDE RECORDS SUMMARY | 2024-06-24 12:03 | XMS_ITS ---
Author Organization Denys Christianson MD Address [address] [place], [place] [phone] Care Team Providers Care Spray Cementer Name Role Phone Denys Christianson Primary Care Provider RESULTS Component Value Reference Range Notes Complete Blood Count Auto Di ff Reviewed date:04/30/2024 09:27:57 PM Interpretation: Performing Lab:[facility], [address] [place] [phone] Notes/Report: White Blood Count 6.6 4.8-10.8 X10*3/uL [...] NRBC Abs Auto 0.000 0.0-0.012 X10*3/uL Comprehensive [place]. Panel Fa st Reviewed date:04/30/2024 09:27:30 PM Interpretation: Performing Lab:[facility], [address] [place] [phone] Notes/Report: Sodium 141 135-145 mmol/L Potassium 4.6 3.3-5.1 mmol/L Chloride 107 96-108 mmol/L Carbon Dioxide 28 22-29 mmol/L Anion Gap 11 12-20 Blood Urea Nitrogen 17 9-16 mg/dL Creatinine 1.33 0.5-1.4 mg/dL Estimated Glomerular Filt Rate 54 NOTE: For -[place] individuals, multiply the result by 1.210. Chronic [...] Panel Reviewed date:04/29/2024 06:41:08 PM Interpretation: Performing Lab:[facility], [address] [place] [phone] Notes/Report: Triglycerides 163 <150 mg/dL Desirable Triglyceride: [...] (Free>4and<10) Reviewed date:04/29/2024 06:41:57 PM Interpretation: Performing Lab:[facility], [address] [place] [phone] Notes/Report: PSA,Total (Free>4and<10) 0.25 0.00-4.00 ng/mL A [...] Random Reviewed date:04/29/2024 06:42:55 PM Interpretation: Performing Lab:[facility], [address] [place] [phone] Notes/Report: Creatinine Urine 316.91 Microalbumin Urine 11.0 Microalbum/Creatinine Ratio Ur 3.4 <30 ug/mg cr Albumin/Creatinine Ratio Reference Ranges: Normal: < 30 ug/mg creatinine Microalbuminuria: 30 - 300 ug/mg creatinine Clinical Albuminuria: > 300 ug/mg creatinine Hemoglobin A1c Reviewed date:04/29/2024 06:41:49 PM Interpretation: Performing Lab:[facility], [address] [place] [phone] Notes/Report: Hemoglobin A1c % 5.6 <6.0 % [...] average glucose, using the formula of the H8P-Vurinhk Average Glucose study (ADAG), Diabetes Care, Vol.31,#8, Feb. 2007 UA ClnCatch+Micro w/rflx Cul t Reviewed date:04/29/2024 06:51:27 PM Interpretation: Performing Lab:[facility], [address] [place] [phone] Notes/Report: Urine, Clean Catch Color Urine Yellow Appearance Urine Clear PH 5.5 5.0-9.0 Glucose Urine UA Negative Negative mg/dL Urine Blood Negative Negative Specific [place] - Urine 1.025 1.005-1.025 Urine Protein Negative Neg-Trace mg/dL Urine Ketones Negative Negative mg/dL Nitrite Urine Negative Negative Leukocyte Esterase Urine Negative Negative RBC Urine 0-2 0-2 /HPF WBC Urine 0-5 0-5 /HPF Squamous Epithelial Cell Urine 0-2 0-2 /HPF Bacteria Urine None Seen None Seen Hyaline Casts Urine 0-2 0-2 /LPF REASON FOR VISIT yearly fasting labs IMMUNIZATIONS Vaccine Route Administration Date Status Comme nts Fluarix Quadrivalent - 150 IM Intramuscular 04/28/2024 Adm inistered Encounters Encounter Location Date Provider Diagnosis Denys Christianson MD [address] [place], [place] [phone] 04/28/2024 Denys Christianson Blood tests for rout ine general physical examination Z00.00 ; Prediabetes R73.09 ; Thrombocytopenia D69.6 and Encounter for immunization Z23 ASSESSMENTS Encounter Date Diagnosis Assessment Notes Treatment Notes Treatment Clinical Notes 04/28/2024 Blood tests for rout ine general physical examination (ICD-10 - Z00.00) 04/28/2024 Prediabetes (ICD-10 - R73.09) 04/28/2024 Thrombocytopenia (ICD-10 - D69.6) 04/28/2024 Encounter for immunization (ICD-10 - Z23) PLAN OF TREATMENT Next Appt Details Provider Name:Denys figueroa, 05/11/2025 08:00:00 AM, [address] [place] [address], [address], [phone], Provider Name:Denys figueroa, 05/18/2025 08:30:00 AM, [address] [place] [address], [place] [address], [place], [place], [phone],
--- OUTSIDE RECORDS SUMMARY | 2024-06-24 12:03 | XMS_ITS ---
Author Organization Denys Christianson MD Address [address] [place] [phone] Care Team Providers Care Machinist Supervisor Name Role Phone Densy Christianson Primary Care Provider REASON FOR VISIT ER Encounters Encounter Location Date Provider Diagnosis Denys Christianson MD [address] [facility] [address] [place] [phone] 06/22/2024 Denys Christianson PLAN OF TREATMENT Next Appt Details Provider Name:Denys figueroa, 05/11/2025 08:00:00 AM, [address] [place] [address], [address], [phone], Provider Name:Denys Claudio ier, 05/18/2025 08:30:00 AM, [address] [place] [address], [place] [address], [place], [place], [phone],
--- OUTSIDE RECORDS SUMMARY | 2024-06-24 12:04 | XMS_ITS | Patient Health Record ---
Author Organization [facility] Address [address] [place] [address] Care Team Providers Care Photo Printer Name Role Phone Denys Christianson MD Primary Care Provider Karma Mitchell Unavailable [phone] ALLERGIES No Known Allergies REASON FOR REFERRAL Referring Provider First Name Denys Referring Provider Last Name Sammy Referring Provider Speciality Internal M edicine Referred Organization [facility] Referred Provider Karma Casper Referred Address [address] [facility] [address],[place], [place],[address], Referred Provider Specialty Gastroentero logy Referral Priority Routine MEDICATIONS Medication SIG (Take, Route, Frequency, Duration) Notes Start Date End Date Status Paxil Takes as needed for anxiety Not-Taking Escitalopram Oxalate 10 MG 1 tablet Orally Once a day for anxiety As needed Active IMMUNIZATIONS Vaccine Route Administration Date Status Comme nts Influenza Unknown 03/15/2018 Administered SOCIAL HISTORY Tobacco Use: Social History Observation Description Date Details (start date - stop date) Former Smoker NA - NA Sex Assigned At : Social History Observation Description Sex Assigned At Unknown Tobacco Use/Smoking Question Answer Notes Patient is a former smoker When did you stop smoking? 5 years ago How long has it been since you last smoked? 5-10 years PROBLEMS Problem Type ICD Code Onset Dates Problem Status W/U Status Risk SNOMED Code Notes Problem Encounter for screening for malignant neoplasm of colon (Z12.11) Active confirmed 625856742 Problem History of adenomatous polyp of colon (Z86.010) Active confirmed 310301864 Problem Personal history of colonic polyps (Z86.010) Active confirmed History of poly p of colon (situation) (842415003) Problem Diverticulosis of large intestine without perforation or abscess without bleeding (K57.30) Active confirmed Diverticul ar disease of colon (836773679) Problem Preprocedural examination (Z01.818) Active confirmed [id number] VITAL SIGNS Blood pressure diastolic 00 mm Hg 09/26/2023 Height 67.5 in 09/26/2023 Blood pressure systolic 00 mm Hg 09/26/2023 Weight 216 lbs 09/26/2023 BMI 33.33 kg/m2 09/26/2023 Encounters Encounter Location Date Provider Diagnosis [facility] [place] [address] [place], [place] [phone] 02/24/2024 Karma Casper Encounter for screen ing colonoscopy Z12.11 ; Personal history of colonic polyps Z86.010 ; Diverticulosis of large intestine without perforation or abscess without bleeding K57.30 and Other hemorrhoids K64.8 [facility] [address] [place] [address] 09/26/2023 Karma Casper History of adenomato us polyp of colon Z86.010 ; Preprocedural examination Z01.818 and Encounter for screening for malignant neoplasm of colon Z12.11 ASSESSMENTS Encounter Date Diagnosis Assessment Notes Treatment Notes Treatment Clinical Notes 02/24/2024 Encounter for screening colonoscopy (ICD-10 - Z12.11) 02/24/2024 Personal history of colonic polyps (ICD-10 - Z86.010) 09/26/2023 History of adenomatous polyp of colon (ICD-10 - Z86.010) 09/26/2023 Preprocedural examination (ICD-10 - Z01.818) 02/24/2024 Diverticulosis of large intestine without perforation or abscess without bleeding (ICD-10 - K57.30) 09/26/2023 Encounter for screening for malignant neoplasm of colon (ICD-10 - Z12.11) 02/24/2024 Other hemorrhoids (ICD-10 - K64.8) PLAN OF TREATMENT Future Test Test Name Order Date COLONOSCOPY 10/14/2013 COLONOSCOPY 02/03/2019 COLONOSCOPY 09/26/2023 Insurance Providers Payer Name Payer Address Payer Phone Subscriber Number Group Number Insured Name Patient Relationship to Insured Coverage Start Date Coverage End Date [facility] [employer] [address] [place] [address] [id number] KARMA NULL Self - patient is the insured MEDICAL (GENERAL) HISTORY Medical History History ICD Code Denies [place],DM,CVA,Lung disease,renal dise ase Anxiety He had a CAT scan of the abd omen in September of 2013 revealing a fatty liver, but a liver profile was normal at that time. Screening colonoscopy 12/2013 with remova l of a small tubular adenoma Negative colonoscopy 02/2019 Surgical History Surgery Date(Month/Year) Hernia repair-left inguinal 2007 Bilateral cataracts-lens implants 2003 Mohs surgery for a basal cell facial can cer 2022
--- OUTSIDE RECORDS SUMMARY | 2024-06-24 12:04 | XMS_ITS ---
Author Organization [facility] Address [address] [place] [phone] Care Team Providers Care Director Of Materials Management Name Role Phone Denys Christianson MD Primary Care Provider Karma Mitchell Unavailable [phone] ALLERGIES No Known Allergies REASON FOR VISIT Patient presents today for a colon screening MEDICATIONS Medication SIG (Take, Route, Frequency, Duration) Notes Start Date End Date Status Paxil Takes as needed for anxiety Not-Taking Escitalopram Oxalate 10 MG 1 tablet Orally Once a day for anxiety As needed Active SOCIAL HISTORY Tobacco Use: Social History Observation Description Date Details (start date - stop date) Former Smoker NA - NA Sex Assigned At : Social History Observation Description Sex Assigned At Unknown Tobacco Use/Smoking Question Answer Notes Patient is a former smoker When did you stop smoking? 5 years ago How long has it been since you last smoked? 5-10 years VITAL SIGNS BMI 33.33 kg/m2 09/26/2023 Blood pressure systolic 00 mm Hg 09/26/19 24 Blood pressure diastolic 00 mm Hg 024 Height 67.5 in 09/26/2023 Weight 216 lbs 09/26/2023 Encounters Encounter Location Date Provider Diagnosis [facility] [address] [place] [phone] 09/26/2023 Karma Casper History of adenomato us polyp of colon Z86.010 ; Preprocedural examination Z01.818 and Encounter for screening for malignant neoplasm of colon Z12.11 ASSESSMENTS Encounter Date Diagnosis Assessment Notes Treatment Notes Treatment Clinical Notes 09/26/2023 History of adenomatous polyp of colon (ICD-10 - Z86.010) 09/26/2023 Preprocedural examination (ICD-10 - Z01.818) 09/26/2023 Encounter for screening for malignant neoplasm of colon (ICD-10 - Z12.11) PLAN OF TREATMENT Future Test Test Name Order Date COLONOSCOPY 09/26/2023 Next Appt Details Follow Up: prn, Reason: Progress Notes * Examination Category Sub-Category Detail Notes General Examination GENERAL APPEARANCE: pleasant , well nourished, well developed, in no acute distress EYES: sclera non-icteric NECK/THYROID: no cervical lymphade nopathy, neck supple HEART: S1, S2 normal LUNGS: clear to auscultatio n bilaterally ABDOMEN: normal bowel sounds, no guarding or rigidity, no hepatosplenomegaly, no masses palpable, soft, nontender, nondistended. NEUROLOGIC: alert and oriented SKIN: nonjaundiced, no spi khang angiomata. EXTREMITIES: no edema ORAL CAVITY: mucosa moist
--- OUTSIDE RECORDS SUMMARY | 2024-06-24 12:04 | XMS_ITS ---
Author Organization [facility] Address [address] [place] [address] Care Team Providers Care Relief Charge Nurse Name Role Phone Denys Christainson MD Primary Care Provider UnaKarma Mcdermott Unavailable [phone] REASON FOR VISIT screening,hx polyps PROBLEMS Problem Type ICD Code Onset Dates Problem Status W/U Status Risk SNOMED Code Notes Problem Personal history of colonic polyps (Z86.010) Active confirmed History of polyp of colon (situation) (447531388) Problem Diverticulosis of large intestine without perforation or abscess without bleeding (K57.30) Active confirmed Diverticul ar disease of colon (713705550) Encounters Encounter Location Date Provider Diagnosis [facility] [place] [address] [place] [phone] 02/24/2024 Karma Casper Encounter for scre ening colonoscopy Z12.11 ; Personal history of colonic polyps Z86.010 ; Diverticulosis of large intestine without perforation or abscess without bleeding K57.30 and Other hemorrhoids K64.8 ASSESSMENTS Encounter Date Diagnosis Assessment Notes Treatment Notes Treatment Clinical Notes 02/24/2024 Encounter for screening colonoscopy (ICD-10 - Z12.11) 02/24/2024 Personal history of colonic polyps (ICD-10 - Z86.010) 02/24/2024 Diverticulosis of large intestine without perforation or abscess without bleeding (ICD-10 - K57.30) 02/24/2024 Other hemorrhoids (ICD-10 - K64.8) PLAN OF TREATMENT No Information
--- OUTSIDE RECORDS SUMMARY | 2024-06-24 12:04 | XMS_ITS | Patient Health Record ---
Author Organization Denys Christiasnon MD Address [address] [place], [place] [id number] Care Team Providers Care Recording Artist Name Role Phone Denys Christianson Primary Care Provider ALLERGIES Allergen (clinical drug ingredient) Drug/Non Drug Allergy documented on EMR Reaction Allergy Type Onset Date Status bees (uncoded) body swelling Allergy A ctive RESULTS Component Value Reference Range Notes Complete Blood Count Auto Di ff Reviewed date:04/30/2024 09:27:57 PM Interpretation: Performing Lab:[facility], [address] [place] [address] Notes/Report: White Blood Count 6.6 4.8-10.8 X10*3/uL [...] NRBC Abs Auto 0.000 0.0-0.012 X10*3/uL Comprehensive [place]. Panel Fa st Reviewed date:04/30/2024 09:27:30 PM Interpretation: Performing Lab:[facility], [address] [place] [address] Notes/Report: Sodium 141 135-145 mmol/L Potassium 4.6 3.3-5.1 mmol/L Chloride 107 96-108 mmol/L Carbon Dioxide 28 22-29 mmol/L Anion Gap 11 12-20 Blood Urea Nitrogen 17 9-16 mg/dL Creatinine 1.33 0.5-1.4 mg/dL Estimated Glomerular Filt Rate 54 NOTE: For -[place] individuals, multiply the result by 1.210. Chronic [...] Panel Reviewed date:04/29/2024 06:41:08 PM Interpretation: Performing Lab:[address] [address] Notes/Report: Triglycerides 163 <150 mg/dL Desirable Triglyceride: [...] (Free>4and<10) Reviewed date:04/29/2024 06:41:57 PM Interpretation: Performing Lab:[address] [address] Notes/Report: PSA,Total (Free>4and<10) 0.25 0.00-4.00 ng/mL A [...] Random Reviewed date:04/29/2024 06:42:55 PM Interpretation: Performing Lab:[address] [place] [address] Notes/Report: Creatinine Urine 316.91 Microalbumin Urine 11.0 Microalbum/Creatinine Ratio Ur 3.4 <30 ug/mg cr Albumin/Creatinine Ratio Reference Ranges: Normal: < 30 ug/mg creatinine Microalbuminuria: 30 - 300 ug/mg creatinine Clinical Albuminuria: > 300 ug/mg creatinine Hemoglobin A1c Reviewed date:04/29/2024 06:41:49 PM Interpretation: Performing Lab:[address] [address] Notes/Report: Hemoglobin A1c % 5.6 <6.0 % [...] average glucose, using the formula of the Y8L-Izybkrc Average Glucose study (ADAG), Diabetes Care, Vol.31,#8, Feb. 2007 UA ClnCatch+Micro w/rflx Cul t Reviewed date:04/29/2024 06:51:27 PM Interpretation: Performing Lab:[address] [address] Notes/Report: Urine, Clean Catch Color Urine Yellow Appearance Urine Clear PH 5.5 5.0-9.0 Glucose Urine UA Negative Negative mg/dL Urine Blood Negative Negative Specific [place] - Urine 1.025 1.005-1.025 Urine Protein Negative Neg-Trace mg/dL Urine Ketones Negative Negative mg/dL Nitrite Urine Negative Negative Leukocyte Esterase Urine Negative Negative RBC Urine 0-2 0-2 /HPF WBC Urine 0-5 0-5 /HPF Squamous Epithelial Cell Urine 0-2 0-2 /HPF Bacteria Urine None Seen None Seen Hyaline Casts Urine 0-2 0-2 /LPF Occult Blood, Stool, Guaiac Reviewed date:05/15/2024 01:36:03 PM Interpretation:Negative Performing Lab: Notes/Report: Negative Occult Blood, Stool, Guaiac Neg XR humerus RT Reviewed date:06/21/2024 11:47:30 AM Interpretation: Performing Lab: Notes/Report: [address] [address] XRay Report Signed Patient: Abdiel Null MR#: [id number] 53 : 1960 Acct:[id number] Age/Sex: 64 / M ADM Date: 06/21/24 Loc: HO.ED Attending Dr: Ordering Physician: Jose G Wong MD Date of Service: 06/21/24 Procedure(s): XR humerus RT Accession Number(s): [id number] cc: Denys Christianson MD; Jose G Wong MD EXAMINATION: X-ray right humerus X-ray right elbow X-ray right forearm CLINICAL INFORMATION: Fall COMPARISON: None TECHNIQUE: Humerus 3 views. Forearm 2 views. Elbow 1 AP view. FINDINGS: There is a 1.5 cm ossification, posterior to the distal humerus, located approximately 3 cm proximal to the olecranon process. This could represent sequela of avulsion fracture, of indeterminate age. Clinically correlate. Mild soft tissue swelling in this region. No acute humeral fracture is identified. No suspicious bony lesions. Humeral head articulates with the glenoid. Mild acromioclavicular arthritis. Small chronic appearing ossification along the superior aspect of the acromioclavicular joint.. No significant elbow joint effusion is identified. No additional acute elbow fracture is identified. No acute radial fracture is identified. No radial fracture is seen. No additional fractures identified in the more distal aspect of the forearm. Wrist articulation is maintained. XR/XR humerus RT IMPRESSION: 1. A 1.4 cm ossification posteriorly at the level of the distal humerus. This is located approximately 3 cm proximal to the olecranon process. These findings could represent sequela of avulsion fracture. This of indeterminate age. Clinically correlate. Additional imaging as clinically warranted. 2. No additional acute fracture is identified. Electronically signed by: Nathaniel Vargas MD 06/21/2024 10:58 AM EST Dictated By: Nathaniel Vargas MD Signed By: <Electronically signed by Nathaniel Vargas MD in OV> 06/21/24 1058 DD/ 0810 TD/TT: 06/21/24 0820 Skip Pitman: NITZA XR elbow RT 2V Reviewed date:06/21/2024 11:47:14 AM Interpretation: Performing Lab: Notes/Report: [address] [address] XRay Report Signed Patient: Abdiel Null MR#: [id number] 53 : 1960 Acct:[id number] Age/Sex: 64 / M ADM Date: 06/21/24 Loc: HO.ED Attending Dr: Ordering Physician: Jose G Wong MD Date of Service: 06/21/24 Procedure(s): XR elbow RT 2V Accession Number(s): [id number] cc: Denys Christianson MD; Jose G Wong MD EXAMINATION: X-ray right humerus X-ray right elbow X-ray right forearm CLINICAL INFORMATION: Fall COMPARISON: None TECHNIQUE: Humerus 3 views. Forearm 2 views. Elbow 1 AP view. FINDINGS: There is a 1.5 cm ossification, posterior to the distal humerus, located approximately 3 cm proximal to the olecranon process. This could represent sequela of avulsion fracture, of indeterminate age. Clinically correlate. Mild soft tissue swelling in this region. No acute humeral fracture is identified. No suspicious bony lesions. Humeral head articulates with the glenoid. Mild acromioclavicular arthritis. Small chronic appearing ossification along the superior aspect of the acromioclavicular joint.. No significant elbow joint effusion is identified. No additional acute elbow fracture is identified. No acute radial fracture is identified. No radial fracture is seen. No additional fractures identified in the more distal aspect of the forearm. Wrist articulation is maintained. XR/XR elbow RT 2V IMPRESSION: 1. A 1.4 cm ossification posteriorly at the level of the distal humerus. This is located approximately 3 cm proximal to the olecranon process. These findings could represent sequela of avulsion fracture. This of indeterminate age. Clinically correlate. Additional imaging as clinically warranted. 2. No additional acute fracture is identified. Electronically signed by: Nathaniel Vargas MD 06/21/2024 10:58 AM [facility] Dictated By: Nathaniel Vargas MD Signed By: <Electronically signed by Nathaniel Vargas MD in OV> 06/21/24 1058 DD/ 08 TD/TT: 06/21/24 0820 Skip Pitman: NITZA XR forearm RT 2V Reviewed date:06/21/2024 11:47:38 AM Interpretation: Performing Lab: Notes/Report: [address] [address] XRay Report Signed Patient: Abdiel Null MR#: [id number] 53 : 1960 Acct:[id number] Age/Sex: 64 / M ADM Date: 06/21/24 Loc: HO.ED Attending Dr: Ordering Physician: Kalli Norwood Date of Service: 06/21/24 Procedure(s): XR forearm RT 2V Accession Number(s): [id number] cc: Denys Christianson MD; Kalli Norwood EXAMINATION: X-ray right humerus X-ray right elbow X-ray right forearm CLINICAL INFORMATION: Fall COMPARISON: None TECHNIQUE: Humerus 3 views. Forearm 2 views. Elbow 1 AP view. FINDINGS: There is a 1.5 cm ossification, posterior to the distal humerus, located approximately 3 cm proximal to the olecranon process. This could represent sequela of avulsion fracture, of indeterminate age. Clinically correlate. Mild soft tissue swelling in this region. No acute humeral fracture is identified. No suspicious bony lesions. Humeral head articulates with the glenoid. Mild acromioclavicular arthritis. Small chronic appearing ossification along the superior aspect of the acromioclavicular joint.. No significant elbow joint effusion is identified. No additional acute elbow fracture is identified. No acute radial fracture is identified. No radial fracture is seen. No additional fractures identified in the more distal aspect of the forearm. Wrist articulation is maintained. XR/XR forearm RT 2V IMPRESSION: 1. A 1.4 cm ossification posteriorly at the level of the distal humerus. This is located approximately 3 cm proximal to the olecranon process. These findings could represent sequela of avulsion fracture. This of indeterminate age. Clinically correlate. Additional imaging as clinically warranted. 2. No additional acute fracture is identified. Electronically signed by: Nathaniel Vargas MD 06/21/2024 10:58 AM EST RP Dictated By: Nathaniel Vargas MD Signed By: <Electronically signed by Nathaniel Vargas MD in OV> 06/21/24 1058 DD/ 0802 TD/TT: 06/21/24 0820 Skip Pitman: NITZA REASON FOR REFERRAL No Information MEDICATIONS Medication SIG (Take, Route, Frequency, Duration) Notes Start Date End Date Status Escitalopram Oxalate 20 MG TAKE 1 TABLET BY MOUTH EVERY DAY for 90 Active IMMUNIZATIONS Vaccine Route Administration Date Status Comme nts Flu Vaccine IM Intramuscular 05/08/2011 Administered Flu Vaccine IM Intramuscular 04/20/2013 Administered Fluarix Quadrivalent IM Intramuscular 04/29/2015 Administered Fluarix Quadrivalent IM Intramuscular 04/08/2017 Administered TDaP Unknown 07/28/2018 Administered Work Connect ion Tetanus Unknown 07/28/2018 Administered Fluarix Quadrivalent IM Intramuscular 04/15/2020 Administered Fluarix Quadrivalent IM Intramuscular 04/04/2021 Administered SARS-COV-2 Pfizer Unknown 10/28/2020 Administered SARS-COV-2 Pfizer Unknown 11/18/2020 Administered Fluarix Quadrivalent IM Intramuscular 04/05/2022 Administered Fluarix Quadrivalent IM Intramuscular 04/26/2023 Administered Fluarix Quadrivalent - 150 IM Intramuscular 04/28/2024 Administered Fluarix Quadrivalent Unknown 07/31/2016 Refused Fluarix Quadrivalent Unknown 10/31/2018 Refused SOCIAL HISTORY Tobacco Use: Social History Observation [...] Never (0 point) Points 2 Interpretation Negative PROBLEMS Problem Type ICD Code Onset Dates Problem Status W/U Status Risk SNOMED Code Notes Problem Thrombocytopenia (D69.6) Active confirmed 002786159 Problem Abnormal results of liver function studies (R94.5) Active confirmed 040355566 Problem Tubular adenoma of colon (D12.6) Active confirmed 176881080 Problem Prediabetes (R73.09) Active confirmed 9161930 Problem History of smoking (Z87.898) Active confirmed 39168440817899527 Problem Food allergy (Z91.018) Active confirmed 832103722 Problem Meralgia paraesthetica, right (G57.11) Active confirmed Meralgia paresthetica (16216205) Problem Abnormal platelets (D69.1) Active confirmed Qualitative platelet disorder (509763097) Problem Anxiety attack (F41.0) Active confirmed 320703261 VITAL SIGNS Blood pressure diastolic 78 mm Hg 05/15/2024 nia ght is up 7 pounds since 05-03-23 Height 67.5 in 05/15/2024 weight is up 7 pounds since 05-03-23 Blood pressure systolic 142 mm Hg 05/15/2024 weig ht is up 7 pounds since 05-03-23 Weight 216 lbs 05/15/2024 weight is up 7 pounds since 05-03-23 BMI 33.33 kg/m2 05/15/2024 weight is up 7 pounds since 05-03-23 PROCEDURES Procedure Date Ordered Date Performed Result Body Sit e Colonoscopy, Screening 02/24/2024 02/24/2024 repeat 5 y Encounters Encounter Location Date Provider Diagnosis Denys Christianson MD [address] [place] [id number] 05/15/2024 Deyns Christianson Abnormal platelets D69.1 ; Annual physical exam Z00.00 ; Prediabetes R73.09 ; Colon cancer screening Z12.11 and Depression screening Z13.31 Denys Christianson MD [address] [place] [phone] 04/28/2024 Denys Christianson Blood tests for rout ine general physical examination Z00.00 ; Prediabetes R73.09 ; Thrombocytopenia D69.6 and Encounter for immunization Z23 Denys Christianson MD [address] [id number] 06/22/2024 Denys Christianson ASSESSMENTS Encounter Date Diagnosis Assessment Notes Treatment Notes Treatment Clinical Notes 05/15/2024 Annual physical exam (ICD-10 - Z00.00) labs reviewed and discussed with patient 05/15/2024 Abnormal platelets (ICD-10 - D69.1) has resolved 04/28/2024 Prediabetes (ICD-10 - R73.09) 04/28/20[address] ine general physical examination (ICD-10 - Z00.00) 05/15/2024 Prediabetes (ICD-10 - R73.09) have advised to get back on diet and stop drinking 04/28/2024 Thrombocytopenia (ICD-10 - D69.6) 05/15/2024 Colon cancer screeni ng (ICD-10 - Z12.11) guaiac negative 04/28/2024 Encounter for immunization (ICD-10 - Z23) 05/15/2024 Depression screening (ICD-10 - Z13.31) negative screen PLAN OF TREATMENT Pending Test Test Name Order Date Electrocardiogram (EKG) 09/08/2015 Electrocardiogram (EKG) 10/24/2017 Next Appt Details Provider Name:Denys Claudio ier, 05/11/2025 08:00:00 AM, [address] [place] [address], [phone], Provider Name:Denys Kelvin Claudio ier, 05/18/2025 08:30:00 AM, [address] [place] [address], [phone], Insurance Providers Payer Name Payer Address Payer Phone Subscriber Number Group Number Insured Name Patient Relationship to Insured Coverage Start Date Coverage End Date [employer]IELD [address] [place], [place] [id number] Abdiel Null Self - patient is the insured MEDICAL (GENERAL) HISTORY Medical History History ICD Code Colonoscopy 12/25/[address] Casper, had colonoscopy 03/12/19 repeat in 5 years02/24/24 repeat 5y
== END 2024-06-21 08:50 | disposition home or self-care (01) ==
PROVIDERS: Emergency Provider Emergency Medicine Emergency Medical Services; PCP Internal Medicine
DX: S42.401A Unspecified fracture of lower end of right humerus, initial encounter for closed fracture (principal); M25.521 Pain in right elbow; W00.0XXA Fall on same level due to ice and snow, initial encounter; Y93.89 Activity, other specified; Y92.89 Other specified places as the place of occurrence of the external cause; Y99.0 Civilian activity done for income or pay; Z87.891 Personal history of nicotine dependence
CPT/HCPCS: 73060; 73070; 73090; 99284

== ENCOUNTER 2024-06-26 08:14 | Outpatient (AMB) | payer OTHER, BC, SELFPAY ==
--- OUTSIDE RECORDS SUMMARY | 2024-06-26 08:17 | XMS_ITS ---
Author Organization Denys Christianson MD Address [address] [place] [phone] Care Team Providers Care Family Reunification Specialist Name Role Phone Denys Christianson Primary Care Provider REASON FOR VISIT ER Encounters Encounter Location Date Provider Diagnosis Denys Christianson MD [address] [facility] [address] [place] [id number] 06/22/2024 Denys Christianson PLAN OF TREATMENT Next Appt Details Provider Name:Denys Claudio iekhoi, 05/11/2025 08:00:00 AM, [address] [place] [address], [address], [phone], Provider Name:Denys Claudio ier, 05/18/2025 08:30:00 AM, [address] [place] [address], [place] [address], [place], [place], [phone],
--- OUTSIDE RECORDS SUMMARY | 2024-06-26 08:18 | XMS_ITS | Patient Health Record ---
Author Organization Denys Christianson MD Address [address] [place], [place] [phone] Care Team Providers Care Special Certificate Dictator Name Role Phone Denys Christianson Primary Care Provider ALLERGIES Allergen (clinical drug ingredient) Drug/Non Drug Allergy documented on EMR Reaction Allergy Type Onset Date Status bees (uncoded) body swelling Allergy A ctive RESULTS Component Value Reference Range Notes Complete Blood Count Auto Di ff Reviewed date:04/30/2024 09:27:57 PM Interpretation: Performing Lab:[facility], [address] [place] [phone] Notes/Report: White Blood Count 6.6 4.8-10.8 X10*3/uL [...] NRBC Abs Auto 0.000 0.0-0.012 X10*3/uL Comprehensive [place]. Panel Fa st Reviewed date:04/30/2024 09:27:30 PM Interpretation: Performing Lab:[facility], [address] [place] [phone] Notes/Report: Sodium 141 135-145 mmol/L Potassium 4.6 3.3-5.1 mmol/L Chloride 107 96-108 mmol/L Carbon Dioxide 28 22-29 mmol/L Anion Gap 11 12-20 Blood Urea Nitrogen 17 9-16 mg/dL Creatinine 1.33 0.5-1.4 mg/dL Estimated Glomerular Filt Rate 54 NOTE: For -[place]an individuals, multiply the result by 1.210. Chronic [...] Panel Reviewed date:04/29/2024 06:41:08 PM Interpretation: Performing Lab:[address] [address] Notes/Report: Triglycerides 163 <150 mg/dL Desirable Triglyceride: [...] (Free>4and<10) Reviewed date:04/29/2024 06:41:57 PM Interpretation: Performing Lab:[address] [address] Notes/Report: PSA,Total (Free>4and<10) 0.25 0.00-4.00 ng/mL A [...] Random Reviewed date:04/29/2024 06:42:55 PM Interpretation: Performing Lab:[address] [place] [address] Notes/Report: Creatinine Urine 316.91 Microalbumin Urine 11.0 Microalbum/Creatinine Ratio Ur 3.4 <30 ug/mg cr Albumin/Creatinine Ratio Reference Ranges: Normal: < 30 ug/mg creatinine Microalbuminuria: 30 - 300 ug/mg creatinine Clinical Albuminuria: > 300 ug/mg creatinine Hemoglobin A1c Reviewed date:04/29/2024 06:41:49 PM Interpretation: Performing Lab:[address] [address] Notes/Report: Hemoglobin A1c % 5.6 <6.0 % [...] average glucose, using the formula of the L9D-Bzndvqd Average Glucose study (ADAG), Diabetes Care, Vol.31,#8, Feb. 2007 UA ClnCatch+Micro w/rflx Cul t Reviewed date:04/29/2024 06:51:27 PM Interpretation: Performing Lab:[address] [address] Notes/Report: Urine, Clean Catch Color Urine Yellow Appearance Urine Clear PH 5.5 5.0-9.0 Glucose Urine UA Negative Negative mg/dL Urine Blood Negative Negative Specific [place] - Urine 1.025 1.005-1.025 Urine Protein Negative [...] date:06/21/2024 11:47:30 AM Interpretation: Performing Lab: Notes/Report: [address] [address] XRay Report Signed Patient: Abdiel Null MR#: [id number] 53 : 1960 Acct:[id number] Age/Sex: 64 / M ADM Date: 06/21/24 Loc: HO.ED Attending Dr: Ordering Physician: Jose G Wong MD Date of Service: 06/21/24 Procedure(s): XR humerus RT Accession Number(s): [id number] cc: Denys Christianson MD; Jose G Wong [...] 06/21/24 1058 DD/ 0810 TD/TT: 06/21/24 0820 Surgery Specialist: NITZA XR elbow RT 2V Reviewed date:06/21/2024 11:47:14 AM Interpretation: Performing Lab: Notes/Report: [address] [address] XRay Report Signed Patient: Abdiel Null MR#: [id number] 53 : 1960 Acct:[id number] Age/Sex: 64 / M ADM Date: 06/21/24 Loc: HO.ED Attending Dr: Ordering Physician: Jose G Wong MD Date of Service: 06/21/24 Procedure(s): XR elbow RT 2V Accession Number(s): [id number] cc: Denys Christianson MD; Jose G Wong [...] by: Nathaniel Vargas MD 06/21/2024 10:58 AM [facility] [place] Dictated By: Nathaniel Vargas MD Signed By: <Electronically signed by Nathaniel Vargas MD in OV> 06/21/24 1058 DD/ 08 TD/TT: 06/21/24 0820 Surgery Specialist: NITZA XR forearm RT 2V Reviewed date:06/21/2024 11:47:38 AM Interpretation: Performing Lab: Notes/Report: [address] [address] XRay Report Signed Patient: Abdiel Null MR#: [id number] 53 : 1960 Acct:[id number] Age/Sex: 64 / M ADM Date: 06/21/24 Loc: HO.ED Attending Dr: Ordering Physician: Kalli Norwood Date of Service: 06/21/24 Procedure(s): XR forearm RT 2V Accession Number(s): [id number] cc: Denys Christianson MD; Kalli Norwood EXAMINATION: [...] 06/21/24 1058 DD/ 0802 TD/TT: 06/21/24 0820 Surgery Specialist: NITZA REASON FOR REFERRAL No Information MEDICATIONS [...] Code Notes Problem Thrombocytopenia (D69.6) Active confirmed 860571102 Problem Abnormal results of liver function studies (R94.5) Active confirmed 818447100 Problem Tubular adenoma of colon (D12.6) Active confirmed 834155591 Problem Prediabetes (R73.09) Active confirmed 5081551 Problem History of smoking (Z87.898) Active confirmed 40589276532243870 Problem Food allergy (Z91.018) Active confirmed 556555206 Problem Meralgia paraesthetica, right (G57.11) Active confirmed Meralgia paresthetica (49507491) Problem Abnormal platelets (D69.1) Active confirmed Qualitative platelet disorder (762393069) Problem Anxiety attack (F41.0) Active confirmed 286833108 VITAL SIGNS Blood pressure diastolic 78 mm [...] Denys Christianson MD [address] [place] [phone] 05/15/2024 Denys Christianson Abnormal platelets D69.1 ; Annual physical exam Z00.00 ; Prediabetes R73.09 ; Colon cancer screening Z12.11 and Depression screening Z13.31 Denys Christianson MD [address] [place] [id number] 04/28/2024 Denys Christianson Blood tests for rout ine general physical examination Z00.00 ; Prediabetes R73.09 ; Thrombocytopenia D69.6 and Encounter for immunization Z23 Denys Christianson MD [address] [id number] 06/22/2024 Denys Christianson ASSESSMENTS Encounter Date Diagnosis [...] Provider Name:Denys Claudio ier, 05/11/2025 08:00:00 AM, [address] [place] [address], [phone], Provider Name:Deyns Kelvin Claudio ier, 05/18/2025 08:30:00 AM, [address] [place] [address], [phone], Insurance Providers Payer Name Payer Address Payer Phone Subscriber Number Group Number Insured Name Patient Relationship to Insured Coverage Start Date Coverage End Date [employer]IELD [address] [place], [place] [phone] [id number] Abdiel Null Self - patient is the insured MEDICAL (GENERAL) HISTORY Medical History History ICD Code Colonoscopy 12/25/[address] Casper, had colonoscopy 03/12/19 repeat in 5 years02/24/24 repeat 5y
--- OUTSIDE RECORDS SUMMARY | 2024-06-26 08:18 | XMS_ITS ---
Author Organization Denys Christianson MD Address [address] [place], [place] [phone] Care Team Providers Care Idea Worker Name Role Phone Denys Christianson Primary Care Provider RESULTS Component Value Reference Range Notes Complete Blood Count Auto Di ff Reviewed date:04/30/2024 09:27:57 PM Interpretation: Performing Lab:[facility], [address] [place] [phone] Notes/Report: White Blood Count 6.6 4.8-10.8 X10*3/uL [...] NRBC Abs Auto 0.000 0.0-0.012 X10*3/uL Comprehensive [place]. Panel Fa st Reviewed date:04/30/2024 09:27:30 PM Interpretation: Performing Lab:[facility], [address] [place] [phone] Notes/Report: Sodium 141 135-145 mmol/L Potassium 4.6 [...] Panel Reviewed date:04/29/2024 06:41:08 PM Interpretation: Performing Lab:[facility], [address] [place] [phone] Notes/Report: Triglycerides 163 <150 mg/dL Desirable Triglyceride: [...] (Free>4and<10) Reviewed date:04/29/2024 06:41:57 PM Interpretation: Performing Lab:[facility], [address] [place] [phone] Notes/Report: PSA,Total (Free>4and<10) 0.25 0.00-4.00 ng/mL A [...] Random Reviewed date:04/29/2024 06:42:55 PM Interpretation: Performing Lab:[facility], [address] [place] [phone] Notes/Report: Creatinine Urine 316.91 Microalbumin Urine 11.0 Microalbum/Creatinine Ratio Ur 3.4 <30 ug/mg cr Albumin/Creatinine Ratio Reference Ranges: Normal: < 30 ug/mg creatinine Microalbuminuria: 30 - 300 ug/mg creatinine Clinical Albuminuria: > 300 ug/mg creatinine Hemoglobin A1c Reviewed date:04/29/2024 06:41:49 PM Interpretation: Performing Lab:[facility], [address] [place] [address] Notes/Report: Hemoglobin A1c % 5.6 <6.0 % [...] average glucose, using the formula of the H0U-Gdipywq Average Glucose study (ADAG), Diabetes Care, Vol.31,#8, Feb. 2007 UA ClnCatch+Micro w/rflx Cul t Reviewed date:04/29/2024 06:51:27 PM Interpretation: Performing Lab:[facility], [address] [place] [phone] Notes/Report: Urine, Clean Catch Color Urine Yellow Appearance Urine Clear PH 5.5 5.0-9.0 Glucose Urine UA Negative Negative mg/dL Urine Blood Negative Negative Specific [place] - Urine 1.025 1.005-1.025 Urine Protein Negative [...] Provider Diagnosis Denys Christianson MD [address] [place], [place] [phone] 04/28/2024 Denys Christianson Blood tests for rout [...] Details Provider Name:Denys figueroa, 05/11/2025 08:00:00 AM, [address] [place] [address], [address], [phone], Provider Name:Denys figueroa, 05/18/2025 08:30:00 AM, [address] [place] [address], [place] [address], [place], [place], [phone],
--- OUTSIDE RECORDS SUMMARY | 2024-06-26 08:18 | XMS_ITS ---
Author Organization [facility] Address [address] [place] [address] Care Team Providers Care Manager Of Merchandising Name Role Phone Denys Christianson MD Primary Care Provider UnaKarma Mcdermott Unavailable [phone] REASON FOR VISIT screening,hx polyps PROBLEMS Problem Type ICD Code Onset Dates Problem Status W/U Status Risk SNOMED Code Notes Problem Personal history of colonic polyps (Z86.010) Active confirmed History of polyp of colon (situation) (718336981) Problem Diverticulosis of large intestine without perforation or abscess without bleeding (K57.30) Active confirmed Diverticul ar disease of colon (527151715) Encounters Encounter Location Date Provider [place] [facility] [place] [address] [place] [phone] 02/24/2024 Karma Casper Encounter for scre ening [...]
--- OUTSIDE RECORDS SUMMARY | 2024-06-26 08:18 | XMS_ITS | Patient Health Record ---
Author Organization [facility] Address [address] [place] [address] Care Team Providers Care Extrusion Press Adjuster Name Role Phone Denys Christianson MD Primary Care Provider Karma Mitchell Unavailable [phone] ALLERGIES No Known Allergies REASON FOR REFERRAL Referring Provider First Name Denys Referring Provider Last Name Sammy Referring Provider Speciality Internal M edicine Referred Organization [facility] Referred Provider Karma Casper Referred Address [address] [facility],[place],[address], Referred Provider Specialty Gastroentero logy Referral Priority [...] malignant neoplasm of colon (Z12.11) Active confirmed 655987634 Problem History of adenomatous polyp of colon (Z86.010) Active confirmed 328972039 Problem Personal history of colonic polyps (Z86.010) Active confirmed History of poly p of colon (situation) (485260193) Problem Diverticulosis of large intestine without perforation or abscess without bleeding (K57.30) Active confirmed Diverticul ar disease of colon (717992865) Problem Preprocedural examination (Z01.818) Active confirmed 352088571913742 VITAL SIGNS Blood pressure diastolic 00 mm Hg 09/26/2023 Height 67.5 in 09/26/2023 Blood pressure systolic 00 mm Hg 09/26/2023 Weight 216 lbs 09/26/2023 BMI 33.33 kg/m2 09/26/2023 Encounters Encounter Location Date Provider Diagnosis [facility] [place] [address] [place], [place] [phone] 02/24/2024 Karma Casper Encounter for screen ing colonoscopy Z12.11 ; Personal history of colonic polyps Z86.010 ; Diverticulosis of large intestine without perforation or abscess without bleeding K57.30 and Other hemorrhoids K64.8 [facility] [address] [place] [address] 09/26/2023 Karma Casper History of adenomato us [...] Insured Coverage Start Date Coverage End Date [facility] PROFESSIONAL CLAIMS [address] [place] [address] [id number] KARMA NULL Self - patient is the insured MEDICAL (GENERAL) HISTORY Medical History History ICD Code Denies [place],DM,CVA,Lung disease,renal dise ase Anxiety He had a [...]
--- OUTSIDE RECORDS SUMMARY | 2024-06-26 08:18 | XMS_ITS ---
Author Organization Denys Christianson MD Address [address] [place], [place] [phone] Care Team Providers Care Unemployment Inspector Name Role Phone Denys Christianson Primary Care [...] Location Date Provider Diagnosis Denys Christianson MD [address] [place] [address] [place] [phone] 05/15/2024 Denys Christianson Abnormal platelets D69.1 ; [...] Reason: Provider Name:Denys figueroa, 05/11/2025 08:00:00 AM, [address] [place] [address], [address] [place] [address], [phone], Provider Name:Denys figueroa, 05/18/2025 08:30:00 AM, [address] [place] [address], [place] [address], [place], [place], [phone], Progress Notes * Examination Category Sub-Category Detail [...]
--- OUTSIDE RECORDS SUMMARY | 2024-06-26 08:18 | XMS_ITS ---
Author Organization [facility] Address [address] [place] [address] Care Team Providers Care Debt Collection Specialist Name Role Phone Denys Christianson MD Primary Care Provider Karma Mitchell Unavailable [phone] ALLERGIES No Known Allergies REASON FOR VISIT [...] 09/26/2023 Encounters Encounter Location Date Provider Diagnosis [facility] [address] [place] [phone] 09/26/2023 Karma Casper History of adenomato us [...]
--- NOTE | 2024-06-26 08:42 | A.OFFVIS_ITS ---
Vital Signs 06/26/24 08:54 Height 5 ft 8 in Weight 216 lb BMI 32.8 Intake Visit Reasons: FC- Right Elbow fracture Intake Note: Abdiel a 64 year old right hand dominant male who presents today for a WC injury to right elbow, DOI 06/21/24. Patient reports while at work he had a slip and fall on ice. His elbow pain has improved. He continues to have pain with applying pressure or movement. His pain radiates up his tricep area. Occasional numbness and tingling in his fingers. Finds relief with ibuprofen. He has been out of work since injury. Allergies No Known Allergies Allergy (Mild, Verified 06/26/24 08:45) NKA Medication List - Last Reconciled 06/26/24 by Priscilla Ho PA-C escitalopram oxalate 20 mg PO DAILY HPI HPI FC- Right Elbow fracture: Details: 64-year-old right hand dominant male who presents to the office today for an evaluation of right elbow injury at work, 06/21/24. He reports he slipped and fell on ice while at work. He currently states he has improvement however he continues to have pain in his elbow with applying pressure or movement. His pain radiates up to the triceps area. He also experiences occasional nu in his fingers. He finds relief with ibuprofen. He has been out of work since his injury. 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 Review of Systems Const All systems reviewed & are unremarkable except as noted in HPI and below Physical Exam Vital Signs: BMI result Body Mass Index 32.8 Const General: cooperative, healthy appearing, comfortable, no acute distress, well developed and alert Orientation/consciousness: patient oriented x3 HEENT Head: Yes normal to inspection, Yes normocephalic and Yes atraumatic Eyes General: appearance normal, both eyes and all related structures Resp Effort & Inspection: normal respiratory effort and able to speak in complete sentences Cardio Rate: regular rate Peripheral pulses: Peripheral pulses 2+ throughout GI Palpation (GI): Soft to palpation Skin Lesions: no lesions Rashes: no rashes Neuro General: patient oriented x3 Extrem Other: Right elbow: Normal to inspection. He does have tenderness over the insertion site of the triceps. He can perform flexion and extension of elbow without discomfort. NVI. Results Reviewed Results Reviewed: Xrays were obtained in the office today and personally reviewed by me of the right elbow show ossification which could represent avulsion fragment Assessment & Plan Assessment & Plan (1) Elbow fracture: Code(s): S42.409A - Unspecified fracture of lower end of unspecified humerus, initial encounter for closed fracture Category: Medical Plan An MRI of the right elbow was ordered to further evaluate the extent of his injury. He will remain out of work till the results are back to determine the next step in his treatment plan. Orders: Orders XR elbow LT min 3V Today M25.522 - Pain in left elbow XR elbow RT min 3V Today M25.521 - Pain in right elbow MR elbow RT wo con Today S42.409A - Unspecified fracture of lower end of unspecified humerus, initial encounter for closed fracture Patient Instructions: Scribed for Priscilla Ho PA-C, by Lenny Teran veterinary medical officer, on 06/26/2024 at 8:30 AM EST.? I, Priscilla Ho PA-C, have personally reviewed and agree with the information entered by the scribe. Coding Level of Care Code New Pt Level 3 (22439) Complex EM visit Add On G2211 Diagnoses Elbow fracture S42.409A
[2024-06-26 08:54] VITALS: BMI 32.8
== END 2024-06-26 09:37 | disposition home or self-care (01) ==
PROVIDERS: PCP Internal Medicine; Visit Provider Physician Assistant
DX: S42.409A Unspecified fracture of lower end of unspecified humerus, initial encounter for closed fracture (principal)
CPT/HCPCS: 99203; G2211

== ENCOUNTER 2024-06-26 08:27 | Outpatient (REF) | payer OTHER, BC, SELFPAY ==
--- NOTE | ~2024-06-26 | XR_ITS ---
EXAMINATION: XR ELBOW RIGHT CLINICAL INFORMATION: Pain in right elbow M25.521. COMPARISON: XR Right elbow 06/21/2024 TECHNIQUE: AP, lateral, and oblique views of the right elbow. FINDINGS: Bony alignment and mineralization are normal. No acute fracture, dislocation or joint effusion is seen. Again, there is a 1.9 x 0.5 cm ovoid, well-corticated ossific density within the posterior soft tissues of the distal upper arm towards the triceps muscle insertion. This is similar in appearance to prior. No foreign body is noted. XR/XR elbow RT min 3V IMPRESSION: 1. No acute fracture, dislocation or joint effusion is seen. 2. There is a 1.5 cm ovoid ossific density again noted posteriorly at the level of the distal humerus. This could represent an old avulsion fragment or an area of myositis ossificans. Again, please correlate clinically. Electronically signed by: Freeman Redmond MD 08/12/2024 04:10 PM TI SHELL
== END 2024-06-26 08:28 | disposition home or self-care (01) ==
LOC: HO.HOSX 08:27
PROVIDERS: Visit Provider Physician Assistant
DX: S42.401A Unspecified fracture of lower end of right humerus, initial encounter for closed fracture (principal)
CPT/HCPCS: 73080; 99202; J1010; J2003

== ENCOUNTER 2024-07-04 09:44 | Outpatient (REF) | payer OTHER, SELFPAY ==
--- NOTE | ~2024-07-04 | MR_ITS ---
EXAMINATION: MR ELBOW WITHOUT CONTRAST, RIGHT CLINICAL INFORMATION: Slip and fall, decreased range of motion. COMPARISON: Radiographs 06/26/2024 TECHNIQUE: MRI of the elbow was performed using routine sequences on a high-field scanner. FINDINGS: The central/superficial portion of the triceps tendon is avulsed from the olecranon attachment, along with an enthesophyte, and is retracted approximately 2.3 cm with associated fluid signal within the gap and extensive surrounding soft tissue edema. The deeper tendinous and muscular attachment, as well as medial and lateral aspects of the attachment remain intact. The brachialis and biceps tendon insertions are intact. Common extensor tendinopathy with mild interstitial partial tearing. The common flexor tendon origin is intact. Medial and lateral collateral ligaments appear intact. No focal articular cartilage defect or loose body. No joint effusion. MR/MR elbow RT wo con IMPRESSION: High-grade partial tear of the triceps tendon insertion as described. The superficial/central portion of the tendon along with an enthesophyte of the olecranon has avulsed and retracted approximately 2.3 cm with fluid and surrounding soft tissue edema. Chronic common extensor tendinopathy with interstitial partial tearing. Electronically signed by: Chemo Borrero MD 07/04/2024 01:46 PM EST
--- OUTSIDE RECORDS SUMMARY | 2024-07-04 09:50 | XMS_ITS ---
Author Organization Denys Christianson MD Address [address] [place], [place] [phone] Care Team Providers Care Leadership Program Intern Name Role Phone Denys Christianson Primary Care [...] Location Date Provider Diagnosis Denys Christianson MD [address] [place] [address] [place] [phone] 05/15/2024 Denys Christianson Abnormal platelets D69.1 ; [...] Reason: Provider Name:Denys figueroa, 05/11/2025 08:00:00 AM, [address] [place] [address], [address] [place] [address], [phone], Provider Name:Denys figueroa, 05/18/2025 08:30:00 AM, [address] [place] [address], [place] [address], [place], [place], [phone], Progress Notes * Examination Category Sub-Category Detail [...]
--- OUTSIDE RECORDS SUMMARY | 2024-07-04 09:51 | XMS_ITS | Patient Health Record ---
Author Organization [facility] Address [address] [place] [address] Care Team Providers Care Linux Server Engineer Name Role Phone Denys Christianson MD Primary Care Provider Karma Mitchell Unavailable [phone] ALLERGIES No Known Allergies REASON FOR REFERRAL Referring Provider First Name Denys Referring Provider Last Name Sammy Referring Provider Speciality Internal M edicine Referred Organization [facility] Referred Provider Karma Casper Referred Address [address] [facility],[place], [place],[address], Referred Provider Specialty Gastroentero logy Referral Priority [...] malignant neoplasm of colon (Z12.11) Active confirmed 038442448 Problem History of adenomatous polyp of colon (Z86.010) Active confirmed 691105863 Problem Personal history of colonic polyps (Z86.010) Active confirmed History of poly p of colon (situation) (833537008) Problem Diverticulosis of large intestine without perforation or abscess without bleeding (K57.30) Active confirmed Diverticul ar disease of colon (210373433) Problem Preprocedural examination (Z01.818) Active confirmed 468065266298260 VITAL SIGNS Blood pressure diastolic 00 mm Hg 09/26/2023 Height 67.5 in 09/26/2023 Blood pressure systolic 00 mm Hg 09/26/2023 Weight 216 lbs 09/26/2023 BMI 33.33 kg/m2 09/26/2023 Encounters Encounter Location Date Provider Diagnosis [facility] [place] [address] [place], [place] [phone] 02/24/2024 Karma Casper Encounter for screen ing colonoscopy Z12.11 ; Personal history of colonic polyps Z86.010 ; Diverticulosis of large intestine without perforation or abscess without bleeding K57.30 and Other hemorrhoids K64.8 [facility] [address] [place] [address] 09/26/2023 Karma Casper History of adenomato us [...] Date [facility] PROFESSIONAL CLAIMS [address] [place] [address] [id number] KARMA NULL Self - patient is the insured MEDICAL (GENERAL) HISTORY Medical History History ICD Code Denies [place],DM,CVA,Lung disease,renal dise ase Anxiety He had a [...]
--- OUTSIDE RECORDS SUMMARY | 2024-07-04 09:51 | XMS_ITS ---
Author Organization Denys Christianson MD Address [address] [place], [place] [phone] Care Team Providers Care Frame Table Operator Helper Name Role Phone Denys Christianson Primary Care Provider RESULTS Component Value Reference Range Notes Complete Blood Count Auto Di ff Reviewed date:04/30/2024 09:27:57 PM Interpretation: Performing Lab:[facility], [address] [place] [phone] Notes/Report: White Blood Count 6.6 4.8-10.8 X10*3/uL [...] NRBC Abs Auto 0.000 0.0-0.012 X10*3/uL Comprehensive [place]. Panel Fa st Reviewed date:04/30/2024 09:27:30 PM Interpretation: Performing Lab:[facility], [address] [place] [phone] Notes/Report: Sodium 141 135-145 mmol/L Potassium 4.6 3.3-5.1 mmol/L Chloride 107 96-108 mmol/L Carbon Dioxide 28 22-29 mmol/L Anion Gap 11 12-20 Blood Urea Nitrogen 17 9-16 mg/dL Creatinine 1.33 0.5-1.4 mg/dL Estimated Glomerular Filt Rate 54 NOTE: For -Russian individuals, multiply the result by 1.210. Chronic [...] Panel Reviewed date:04/29/2024 06:41:08 PM Interpretation: Performing Lab:[facility], [address] [place] [phone] Notes/Report: Triglycerides 163 <150 mg/dL Desirable Triglyceride: [...] (Free>4and<10) Reviewed date:04/29/2024 06:41:57 PM Interpretation: Performing Lab:[facility], [address] [place] [phone] Notes/Report: PSA,Total (Free>4and<10) 0.25 0.00-4.00 ng/mL A [...] Random Reviewed date:04/29/2024 06:42:55 PM Interpretation: Performing Lab:[facility], [address] [place] [phone] Notes/Report: Creatinine Urine 316.91 Microalbumin Urine 11.0 Microalbum/Creatinine Ratio Ur 3.4 <30 ug/mg cr Albumin/Creatinine Ratio Reference Ranges: Normal: < 30 ug/mg creatinine Microalbuminuria: 30 - 300 ug/mg creatinine Clinical Albuminuria: > 300 ug/mg creatinine Hemoglobin A1c Reviewed date:04/29/2024 06:41:49 PM Interpretation: Performing Lab:[facility], [address] [place] [address] Notes/Report: Hemoglobin A1c % 5.6 <6.0 % [...] average glucose, using the formula of the Z9N-Ltxkxfa Average Glucose study (ADAG), Diabetes Care, Vol.31,#8, Feb. 2007 UA ClnCatch+Micro w/rflx Cul t Reviewed date:04/29/2024 06:51:27 PM Interpretation: Performing Lab:[facility], [address] [place] [phone] Notes/Report: Urine, Clean Catch Color Urine Yellow Appearance Urine Clear PH 5.5 5.0-9.0 Glucose Urine UA Negative Negative mg/dL Urine Blood Negative Negative Specific [place] - Urine 1.025 1.005-1.025 Urine Protein Negative [...] Date Provider Diagnosis Denys Christianson MD [address] [place], [place] [phone] 04/28/2024 Denys Christianson Blood tests for rout [...] Details Provider Name:Denys figueroa, 05/11/2025 08:00:00 AM, [address] [place] [address], [address], [phone], Provider Name:Denys figueroa, 05/18/2025 08:30:00 AM, [address] [place] [address], [place] [address], [place], [place], [phone],
--- OUTSIDE RECORDS SUMMARY | 2024-07-04 09:51 | XMS_ITS ---
Author Organization [facility] Address [address] [place] [address] Care Team Providers Care Heavy Cleaner Name Role Phone Denys Christianson MD Primary Care Provider Karma Mitchell Unavailable [phone] ALLERGIES No Known Allergies REASON FOR VISIT [...] 09/26/2023 Encounters Encounter Location Date Provider Diagnosis [facility] [address] [place] [phone] 09/26/2023 Karma Casper History of adenomato us [...]
--- OUTSIDE RECORDS SUMMARY | 2024-07-04 09:51 | XMS_ITS ---
Author Organization [facility] Address [address] [place] [address] Care Team Providers Care Fuel Retrofitting Technician Name Role Phone Denys Christianson MD Primary Care Provider UnaKarma Mcdermott Unavailable [phone] REASON FOR VISIT screening,hx polyps PROBLEMS Problem Type ICD Code Onset Dates Problem Status W/U Status Risk SNOMED Code Notes Problem Personal history of colonic polyps (Z86.010) Active confirmed History of polyp of colon (situation) (981536022) Problem Diverticulosis of large intestine without perforation or abscess without bleeding (K57.30) Active confirmed Diverticul ar disease of colon (438368096) Encounters Encounter Location Date Provider Diagnosis [facility] [place] [address] [place] [phone] 02/24/2024 Karma Casper Encounter for scre ening [...]
--- OUTSIDE RECORDS SUMMARY | 2024-07-04 09:51 | XMS_ITS | Patient Health Record ---
Author Organization Denys Christianson MD Address [address] [place], [place] [phone] Care Team Providers Care Trestle Mechanic Name Role Phone Denys Christianson Primary Care Provider [phone] ALLERGIES Allergen (clinical drug ingredient) Drug/Non Drug Allergy documented on EMR Reaction Allergy Type Onset Date Status bees (uncoded) body swelling Allergy A ctive RESULTS Component Value Reference Range Notes Complete Blood Count Auto Di ff Reviewed date:04/30/2024 09:27:57 PM Interpretation: Performing Lab:[facility], [address] [place] [phone] Notes/Report: White Blood Count 6.6 4.8-10.8 X10*3/uL [...] NRBC Abs Auto 0.000 0.0-0.012 X10*3/uL Comprehensive [place]. Panel Fa st Reviewed date:04/30/2024 09:27:30 PM Interpretation: Performing Lab:[facility], [address] [place] [phone] Notes/Report: Sodium 141 135-145 mmol/L Potassium 4.6 3.3-5.1 mmol/L Chloride 107 96-108 mmol/L Carbon Dioxide 28 22-29 mmol/L Anion Gap 11 12-20 Blood Urea Nitrogen 17 9-16 mg/dL Creatinine 1.33 0.5-1.4 mg/dL Estimated Glomerular Filt Rate 54 NOTE: For -[place] individuals, multiply the result by 1.210. Chronic [...] Panel Reviewed date:04/29/2024 06:41:08 PM Interpretation: Performing Lab:[address] [phone] Notes/Report: Triglycerides 163 <150 mg/dL Desirable Triglyceride: [...] (Free>4and<10) Reviewed date:04/29/2024 06:41:57 PM Interpretation: Performing Lab:[address] [phone] Notes/Report: PSA,Total (Free>4and<10) 0.25 0.00-4.00 ng/mL A [...] Random Reviewed date:04/29/2024 06:42:55 PM Interpretation: Performing Lab:[address] [place] [address] Notes/Report: Creatinine Urine 316.91 Microalbumin Urine 11.0 Microalbum/Creatinine Ratio Ur 3.4 <30 ug/mg cr Albumin/Creatinine Ratio Reference Ranges: Normal: < 30 ug/mg creatinine Microalbuminuria: 30 - 300 ug/mg creatinine Clinical Albuminuria: > 300 ug/mg creatinine Hemoglobin A1c Reviewed date:04/29/2024 06:41:49 PM Interpretation: Performing Lab:[address] [address] Notes/Report: Hemoglobin A1c % 5.6 <6.0 % [...] average glucose, using the formula of the V9D-Mvjcvhj Average Glucose study (ADAG), Diabetes Care, Vol.31,#8, Feb. 2007 UA ClnCatch+Micro w/rflx Cul t Reviewed date:04/29/2024 06:51:27 PM Interpretation: Performing Lab:[address] [address] Notes/Report: Urine, Clean Catch Color Urine Yellow Appearance Urine Clear PH 5.5 5.0-9.0 Glucose Urine UA Negative Negative mg/dL Urine Blood Negative Negative Specific [place] - Urine 1.025 1.005-1.025 Urine Protein Negative [...] date:06/21/2024 11:47:30 AM Interpretation: Performing Lab: Notes/Report: [address] [address] XRay Report Signed Patient: Abdiel Null MR#: [id number] 53 : 1960 Acct:[id number] Age/Sex: 64 / M ADM Date: 06/21/24 Loc: HO.ED Attending Dr: Ordering Physician: Jose G Wong MD Date of Service: 06/21/24 Procedure(s): XR humerus RT Accession Number(s): [id number] cc: Denys Christianson MD; Jose G Wong [...] 06/21/24 1058 DD/ 0810 TD/TT: 06/21/24 0820 Curriculum Director: NITZA XR elbow RT 2V Reviewed date:06/21/2024 11:47:14 AM Interpretation: Performing Lab: Notes/Report: [address] [address] XRay Report Signed Patient: Abdiel Null MR#: [id number] 53 : 1960 Acct:[id number] Age/Sex: 64 / M ADM Date: 06/21/24 Loc: HO.ED Attending Dr: Ordering Physician: Jose G Wong MD Date of Service: 06/21/24 Procedure(s): XR elbow RT 2V Accession Number(s): [id number] cc: Denys Christianson MD; Jose G Wong [...] by: Nathaniel Vargas MD 06/21/2024 10:58 AM [facility] Dictated By: Nathaniel Vargas MD Signed By: <Electronically signed by Nathaniel Vargas MD in OV> 06/21/24 1058 DD/ 08 TD/TT: 06/21/24 0820 Curriculum Director: NITZA XR forearm RT 2V Reviewed date:06/21/2024 11:47:38 AM Interpretation: Performing Lab: Notes/Report: [address] [address] XRay Report Signed Patient: Abdiel Null MR#: [id number] 53 : 1960 Acct:[id number] Age/Sex: 64 / M ADM Date: 06/21/24 Loc: HO.ED Attending Dr: Ordering Physician: Kalli Norwood Date of Service: 06/21/24 Procedure(s): XR forearm RT 2V Accession Number(s): [id number] cc: Denys Christianson MD; Kalli Norwood EXAMINATION: [...] 06/21/24 1058 DD/ 0802 TD/TT: 06/21/24 0820 Curriculum Director: NITZA REASON FOR REFERRAL No Information MEDICATIONS [...] Code Notes Problem Thrombocytopenia (D69.6) Active confirmed 634882218 Problem Abnormal results of liver function studies (R94.5) Active confirmed 465027840 Problem Tubular adenoma of colon (D12.6) Active confirmed 322477367 Problem Prediabetes (R73.09) Active confirmed 0976893 Problem History of smoking (Z87.898) Active confirmed 44890289000799121 Problem Food allergy (Z91.018) Active confirmed 001079937 Problem Meralgia paraesthetica, right (G57.11) Active confirmed Meralgia paresthetica (23064039) Problem Abnormal platelets (D69.1) Active confirmed Qualitative platelet disorder (528271763) Problem Anxiety attack (F41.0) Active confirmed 682347587 VITAL SIGNS Blood pressure diastolic 78 mm [...] Denys Christianson MD [address] [place] [phone] 05/15/2024 Denys Christianson Abnormal platelets D69.1 ; Annual physical exam Z00.00 ; Prediabetes R73.09 ; Colon cancer screening Z12.11 and Depression screening Z13.31 Denys Christianson MD [address] [place] [phone] 04/28/2024 Denys Christianson Blood tests for rout ine general physical examination Z00.00 ; Prediabetes R73.09 ; Thrombocytopenia D69.6 and Encounter for immunization Z23 Denys Christianson MD [address] [phone] 06/22/2024 Denys Christianson ASSESSMENTS Encounter Date Diagnosis [...] Provider Name:Denys Claudio ier, 05/11/2025 08:00:00 AM, [address] [place] [address], [phone], Provider Name:Denys Kelvin Claudio ier, 05/18/2025 08:30:00 AM, [address] [place] [address], [phone], Insurance Providers Payer Name Payer Address Payer Phone Subscriber Number Group Number Insured Name Patient Relationship to Insured Coverage Start Date Coverage End Date [employer] [address] [place], [place] [id number] Abdiel Null Self - patient is the insured MEDICAL (GENERAL) HISTORY Medical History History ICD Code Colonoscopy 12/25/[address] Casper, had colonoscopy 03/12/19 repeat in 5 years02/24/24 repeat 5y
== END 2024-07-04 09:45 | disposition home or self-care (01) ==
LOC: HO.MRI 09:44
PROVIDERS: PCP Internal Medicine; Visit Provider Physician Assistant
DX: S42.401A Unspecified fracture of lower end of right humerus, initial encounter for closed fracture (principal)
CPT/HCPCS: 73221

== ENCOUNTER 2024-07-13 08:45 | Outpatient (AMB) | payer OTHER, SELFPAY ==
--- OUTSIDE RECORDS SUMMARY | 2024-07-13 08:48 | XMS_ITS ---
Author Organization Denys Christianson MD Address [address] [place], [place] [phone] Care Team Providers Care Coiler Name Role Phone Denys Christianson Primary Care Provider [phone] ALLERGIES Allergen (clinical drug ingredient) Drug/Non Drug [...] Location Date Provider Diagnosis Denys Christianson MD [address] [place] [address] [place] [phone] 05/15/2024 Denys Christianson Abnormal platelets D69.1 ; [...] Reason: Provider Name:Denys figueroa, 05/11/2025 08:00:00 AM, [address] [place] [address], [address] [place] [address], [phone], Provider Name:Denys figueroa, 05/18/2025 08:30:00 AM, [address] [place] [address], [place] [address], [place], [place], [phone], Progress Notes * Examination Category Sub-Category Detail [...]
--- OUTSIDE RECORDS SUMMARY | 2024-07-13 08:48 | XMS_ITS | Patient Health Record ---
Author Organization Denys Christianson MD Address [address] [place], [place] [phone] Care Team Providers Care Religious Activities Director Name Role Phone Denys Christianson Primary Care Provider [phone] ALLERGIES Allergen (clinical drug ingredient) Drug/Non Drug Allergy documented on EMR Reaction Allergy Type Onset Date Status bees (uncoded) body swelling Allergy A ctive RESULTS Component Value Reference Range Notes Complete Blood Count Auto Di ff Reviewed date:04/30/2024 09:27:57 PM Interpretation: Performing Lab:[facility], [address] [place] [phone] Notes/Report: White Blood Count 6.6 4.8-10.8 X10*3/uL [...] NRBC Abs Auto 0.000 0.0-0.012 X10*3/uL Comprehensive [place]. Panel Fa st Reviewed date:04/30/2024 09:27:30 PM Interpretation: Performing Lab:[facility], [address] [place] [phone] Notes/Report: Sodium 141 135-145 mmol/L Potassium 4.6 3.3-5.1 mmol/L Chloride 107 96-108 mmol/L Carbon Dioxide 28 22-29 mmol/L Anion Gap 11 12-20 Blood Urea Nitrogen 17 9-16 mg/dL Creatinine 1.33 0.5-1.4 mg/dL Estimated Glomerular Filt Rate 54 NOTE: For -Bruneian individuals, multiply the result by 1.210. Chronic [...] Panel Reviewed date:04/29/2024 06:41:08 PM Interpretation: Performing Lab:[address] [address] Notes/Report: Triglycerides 163 <150 mg/dL Desirable Triglyceride: [...] (Free>4and<10) Reviewed date:04/29/2024 06:41:57 PM Interpretation: Performing Lab:[address] [address] Notes/Report: PSA,Total (Free>4and<10) 0.25 0.00-4.00 ng/mL A [...] between 4.0 and 10.0 ng/mL. PSA methodology: Cortze Alinity i Chemiluminescent Microparticle Immunoassay (CMIA) Microalbumin, Random Reviewed date:04/29/2024 06:42:55 PM Interpretation: Performing Lab:[address] [place] [address] Notes/Report: Creatinine Urine 316.91 Microalbumin Urine 11.0 Microalbum/Creatinine Ratio Ur 3.4 <30 ug/mg cr Albumin/Creatinine Ratio Reference Ranges: Normal: < 30 ug/mg creatinine Microalbuminuria: 30 - 300 ug/mg creatinine Clinical Albuminuria: > 300 ug/mg creatinine Hemoglobin A1c Reviewed date:04/29/2024 06:41:49 PM Interpretation: Performing Lab:[address] [address] Notes/Report: Hemoglobin A1c % 5.6 <6.0 % [...] average glucose, using the formula of the Y7J-Jeypmlh Average Glucose study (ADAG), Diabetes Care, Vol.31,#8, Feb. 2007 UA ClnCatch+Micro w/rflx Cul t Reviewed date:04/29/2024 06:51:27 PM Interpretation: Performing Lab:[address] [address] Notes/Report: Urine, Clean Catch Color Urine Yellow Appearance Urine Clear PH 5.5 5.0-9.0 Glucose Urine UA Negative Negative mg/dL Urine Blood Negative Negative Specific [place] - Urine 1.025 1.005-1.025 Urine Protein Negative [...] date:06/21/2024 11:47:30 AM Interpretation: Performing Lab: Notes/Report: [address] [address] XRay Report Signed Patient: Abdiel uNll MR#: [id number] 53 : 1960 Acct:[id number] Age/Sex: 64 / M ADM Date: 06/21/24 Loc: HO.ED Attending Dr: Ordering Physician: Jose G Wong MD Date of Service: 06/21/24 Procedure(s): XR humerus RT Accession Number(s): [id number] cc: Denys Christianson MD; Jose G Wong [...] 06/21/24 1058 DD/ 0810 TD/TT: 06/21/24 0820 [employer] Marker: NITZA XR elbow RT 2V Reviewed date:06/21/2024 11:47:14 AM Interpretation: Performing Lab: Notes/Report: [address] [address] XRay Report Signed Patient: Abdiel Null MR#: [id number] 53 : 1960 Acct:[id number] Age/Sex: 64 / M ADM Date: 06/21/24 Loc: HO.ED Attending Dr: Ordering Physician: Jose G Wong MD Date of Service: 06/21/24 Procedure(s): XR elbow RT 2V Accession Number(s): [id number] cc: Denys Christianson MD; Jose G Wong [...] by: Nathaniel Vargas MD 06/21/2024 10:58 AM [facility] Dictated By: Nathaniel Vargas MD Signed By: <Electronically signed by Nathaniel Vargas MD in OV> 06/21/24 1058 DD/ 08 TD/TT: 06/21/24 0820 [employer] Marker: NITZA XR forearm RT 2V Reviewed date:06/21/2024 11:47:38 AM Interpretation: Performing Lab: Notes/Report: [address] [address] XRay Report Signed Patient: Abdiel Null MR#: [id number] 53 : 1960 Acct:[id number] Age/Sex: 64 / M ADM Date: 06/21/24 Loc: HO.ED Attending Dr: Ordering Physician: Kalli Norwood Date of Service: 06/21/24 Procedure(s): XR forearm RT 2V Accession Number(s): [id number] cc: Denys Christianson MD; Kalli Norwodo EXAMINATION: X-ray right humerus X-ray right elbow [...] 06/21/24 1058 DD/ 08 TD/TT: 06/21/24 0820 [employer] Marker: NITZA MR elbow RT wo con Reviewed date:07/04/2024 04:02:43 PM Interpretation: Performing Lab: Notes/Report: [address] [address] Magnetic Resonance Report Signed Patient: Abdiel Null MR#: [id number] 53 : 1960 Acct:[id number] Age/Sex: 64 / M ADM Date: 07/04/24 Loc: HO.MRI Attending Dr: Priscilla Ho PA-C Ordering Physician: Priscilla Ho PA-C Date of Service: 07/04/24 Procedure(s): MR elbow RT wo con Accession Number(s): [id number] cc: Denys Christianson MD; Priscilla Ho PA-C EXAMINATION: MR ELBOW WITHOUT CONTRAST, RIGHT CLINICAL INFORMATION: Slip and fall, decreased range of motion. COMPARISON: Radiographs 06/26/2024 TECHNIQUE: MRI of the elbow was performed using routine sequences on a high-field scanner. FINDINGS: The central/superficial portion of the triceps tendon is avulsed from the olecranon attachment, along with an enthesophyte, and is retracted approximately 2.3 cm with associated fluid signal within the gap and extensive surrounding soft tissue edema. The deeper tendinous and muscular attachment, as well as medial and lateral aspects of the attachment remain intact. The brachialis and biceps tendon insertions are intact. Common extensor tendinopathy with mild interstitial partial tearing. The common flexor tendon origin is intact. Medial and lateral collateral ligaments appear intact. No focal articular cartilage defect or loose body. No joint effusion. MR/MR elbow RT wo con IMPRESSION: High-grade partial tear of the triceps tendon insertion as described. The superficial/central portion of the tendon along with an enthesophyte of the olecranon has avulsed and retracted approximately 2.3 cm with fluid and surrounding soft tissue edema. Chronic common extensor tendinopathy with interstitial partial tearing. Electronically signed by: Chemo Borrero MD 07/04/2024 01:46 PM EST RP Dictated By: Chemo Borrero MD Signed By: <Electronically signed by Chemo Borrero MD in OV> 07/04/24 1346 DD/ 1018 TD/TT: 07/04/24 1110 [employer] Marker: GUANAKO REASON FOR REFERRAL No Information MEDICATIONS Medication [...] Code Notes Problem Thrombocytopenia (D69.6) Active confirmed 813564771 Problem Abnormal results of liver function studies (R94.5) Active confirmed 654991402 Problem Tubular adenoma of colon (D12.6) Active confirmed 533023108 Problem Prediabetes (R73.09) Active confirmed 4759058 Problem History of smoking (Z87.898) Active confirmed 05464295259454124 Problem Food allergy (Z91.018) Active confirmed 098694363 Problem Meralgia paraesthetica, right (G57.11) Active confirmed Meralgia paresthetica (20081631) Problem Abnormal platelets (D69.1) Active confirmed Qualitative platelet disorder (482737402) Problem Anxiety attack (F41.0) Active confirmed 273819291 VITAL SIGNS Blood pressure diastolic 78 mm [...] Denys Christianson MD [address] [place] [phone] 05/15/2024 Denys Christianson Abnormal platelets D69.1 ; Annual physical exam Z00.00 ; Prediabetes R73.09 ; Colon cancer screening Z12.11 and Depression screening Z13.31 Denys Christianson MD [address] [place] [id number] 04/28/2024 Denys Christianson Blood tests for rout ine general physical examination Z00.00 ; Prediabetes R73.09 ; Thrombocytopenia D69.6 and Encounter for immunization Z23 Denys Christianson MD [address] [place] [phone] 06/22/2024 Denys Christianson ASSESSMENTS Encounter Date Diagnosis Assessment Notes Treatment Notes Treatment Clinical Notes 05/15/2024 Annual physical exam (ICD-10 - Z00.00) labs reviewed and discussed with patient 05/15/2024 Abnormal platelets (ICD-10 - D69.1) has resolved 04/28/2024 Prediabetes (ICD-10 - R73.09) 04/28/2024 Blood tests for darwin ine general physical examination (ICD-10 - Z00.00) [...] (EKG) 10/24/2017 Next Appt Details Provider Name:Denys figueroa, 05/11/2025 08:00:00 AM, [address] [place] [address], [phone], Provider Name:Denys Claudio ier, 05/18/2025 08:30:00 AM, [address] [place] [address], [place] [address], [place], [place], [phone], Insurance Providers Payer Name Payer Address Payer Phone Subscriber Number Group Number Insured Name Patient Relationship to Insured Coverage Start Date Coverage End Date [employer] [address] [place], [place] [phone] [id number] Abdiel Null Self - patient is the insured MEDICAL (GENERAL) HISTORY Medical History History ICD Code Colonoscopy 12/25/[address] Casper, had colonoscopy 03/12/19 repeat in 5 years02/24/24 repeat 5y
--- OUTSIDE RECORDS SUMMARY | 2024-07-13 08:48 | XMS_ITS ---
Author Organization Denys Christianson MD Address [address] [place], [place] [phone] Care Team Providers Care Flosser Name Role Phone Denys Christianson Primary Care Provider [phone] RESULTS Component Value Reference Range Notes Complete Blood Count Auto Di ff Reviewed date:04/30/2024 09:27:57 PM Interpretation: Performing Lab:[facility], [address] [place] [phone] Notes/Report: White Blood Count 6.6 4.8-10.8 X10*3/uL [...] NRBC Abs Auto 0.000 0.0-0.012 X10*3/uL Comprehensive [place]. Panel Fa st Reviewed date:04/30/2024 09:27:30 PM Interpretation: Performing Lab:[facility], [address] [place] [phone] Notes/Report: Sodium 141 135-145 mmol/L Potassium 4.6 3.3-5.1 mmol/L Chloride 107 96-108 mmol/L Carbon Dioxide 28 22-29 mmol/L Anion Gap 11 12-20 Blood Urea Nitrogen 17 9-16 mg/dL Creatinine 1.33 0.5-1.4 mg/dL Estimated Glomerular Filt Rate 54 NOTE: For -Ecuadorean individuals, multiply the result by 1.210. Chronic [...] Panel Reviewed date:04/29/2024 06:41:08 PM Interpretation: Performing Lab:[facility], [address] [place] [phone] Notes/Report: Triglycerides 163 <150 mg/dL Desirable Triglyceride: [...] (Free>4and<10) Reviewed date:04/29/2024 06:41:57 PM Interpretation: Performing Lab:[facility], [address] [place] [phone] Notes/Report: PSA,Total (Free>4and<10) 0.25 0.00-4.00 ng/mL A [...] Random Reviewed date:04/29/2024 06:42:55 PM Interpretation: Performing Lab:[facility], [address] [place] [phone] Notes/Report: Creatinine Urine 316.91 Microalbumin Urine 11.0 Microalbum/Creatinine Ratio Ur 3.4 <30 ug/mg cr Albumin/Creatinine Ratio Reference Ranges: Normal: < 30 ug/mg creatinine Microalbuminuria: 30 - 300 ug/mg creatinine Clinical Albuminuria: > 300 ug/mg creatinine Hemoglobin A1c Reviewed date:04/29/2024 06:41:49 PM Interpretation: Performing Lab:[facility], [address] [place] [address] Notes/Report: Hemoglobin A1c % 5.6 <6.0 % [...] average glucose, using the formula of the Q9W-Hnvpiip Average Glucose study (ADAG), Diabetes Care, Vol.31,#8, Feb. 2007 UA ClnCatch+Micro w/rflx Cul t Reviewed date:04/29/2024 06:51:27 PM Interpretation: Performing Lab:[facility], [address] [place] [phone] Notes/Report: Urine, Clean Catch Color Urine Yellow Appearance Urine Clear PH 5.5 5.0-9.0 Glucose Urine UA Negative Negative mg/dL Urine Blood Negative Negative Specific [place] - Urine 1.025 1.005-1.025 Urine Protein Negative [...] Date Provider Diagnosis Denys Christianson MD [address] [place], [place] [phone] 04/28/2024 Denys Christianson Blood tests for rout [...] Details Provider Name:Denys figueroa, 05/11/2025 08:00:00 AM, [address] [place] [address], [address], [phone], Provider Name:Denys figueroa, 05/18/2025 08:30:00 AM, [address] [place] [address], [place] [address], [place], [place], [phone],
--- OUTSIDE RECORDS SUMMARY | 2024-07-13 08:48 | XMS_ITS ---
Author Organization [facility] Address [address] [place] [address] Care Team Providers Care Household Manager Name Role Phone Denys Christianson MD Primary Care Provider UnaKarma Mcdermott Unavailable [phone] REASON FOR VISIT screening,hx polyps PROBLEMS Problem Type ICD Code Onset Dates Problem Status W/U Status Risk SNOMED Code Notes Problem Personal history of colonic polyps (Z86.010) Active confirmed History of polyp of colon (situation) (792410235) Problem Diverticulosis of large intestine without perforation or abscess without bleeding (K57.30) Active confirmed Diverticul ar disease of colon (208134619) Encounters Encounter Location Date Provider Diagnosis [facility] Outpatient [address] [place] [phone] 02/24/2024 Karma Casper Encounter for scre ening [...]
--- OUTSIDE RECORDS SUMMARY | 2024-07-13 08:48 | XMS_ITS ---
Author Organization Denys Christianson MD Address [address] [place] [phone] Care Team Providers Care City Jailer Name Role Phone Denys Christianson Primary Care Provider REASON FOR VISIT ER Encounters Encounter Location Date Provider Diagnosis Denys Christianson MD [facility] [address] [place] [phone] 06/22/2024 Denys Christianson PLAN OF TREATMENT Next Appt Details Provider Name:Denys Claudio iekhoi, 05/11/2025 08:00:00 AM, [address] [place] [address], [address] [place] [address], [phone], Provider Name:Denys Claudio ier, 05/18/2025 08:30:00 AM, [address] [place] [address], [place] [address], [place], [place], [phone],
--- OUTSIDE RECORDS SUMMARY | 2024-07-13 08:49 | XMS_ITS | Patient Health Record ---
Author Organization [facility] Address [address] [place] [address] Care Team Providers Care County Agricultural Agent Name Role Phone Denys Christianson MD Primary Care Provider Karma Mitchell Unavailable [phone] ALLERGIES No Known Allergies REASON FOR REFERRAL Referring Provider First Name Denys Referring Provider Last Name Sammy Referring Provider Speciality Internal M edicine Referred Organization [facility] Referred Provider Karma Casper Referred Address [address] [facility],[place], [place],[address], Referred Provider Specialty Gastroentero logy Referral Priority [...] malignant neoplasm of colon (Z12.11) Active confirmed 460705707 Problem History of adenomatous polyp of colon (Z86.010) Active confirmed 376323284 Problem Personal history of colonic polyps (Z86.010) Active confirmed History of poly p of colon (situation) (924574083) Problem Diverticulosis of large intestine without perforation or abscess without bleeding (K57.30) Active confirmed Diverticul ar disease of colon (497196150) Problem Preprocedural examination (Z01.818) Active confirmed 212724367884404 VITAL SIGNS Blood pressure diastolic 00 mm Hg 09/26/2023 Height 67.5 in 09/26/2023 Blood pressure systolic 00 mm Hg 09/26/2023 Weight 216 lbs 09/26/2023 BMI 33.33 kg/m2 09/26/2023 Encounters Encounter Location Date Provider Diagnosis [facility] [address], [place] [phone] 02/24/2024 Karma Casper Encounter for screen ing colonoscopy Z12.11 ; Personal history of colonic polyps Z86.010 ; Diverticulosis of large intestine without perforation or abscess without bleeding K57.30 and Other hemorrhoids K64.8 [facility] [address] [place] [address] 09/26/2023 Karma Casper History of adenomato us [...] Insured Coverage Start Date Coverage End Date [facility] [employer] CLAIMS [address] [place] [address] [id number] KARMA NULL Self - patient is the insured MEDICAL (GENERAL) HISTORY Medical History History ICD Code Denies DE,DM,CVA,Lung disease,renal dise ase Anxiety He had a [...]
--- OUTSIDE RECORDS SUMMARY | 2024-07-13 08:49 | XMS_ITS ---
Author Organization [facility] Address [address] [place] [phone] Care Team Providers Care Rd Project Manager Name Role Phone Denys Christianson MD Primary Care Provider Karma Mitchell Unavailable [phone] ALLERGIES No Known Allergies REASON FOR VISIT [...] [facility] [address] [place] [phone] 09/26/2023 Karma Casper History of adenomato us [...]
--- NOTE | 2024-07-13 08:56 | MHC.OFFVIS ---
Intake Visit Reasons: OV- MRI review Right Elbow fracture Intake Note: He continues to have pain in his elbow, forearm and tricep however his pain has improved since his last visit. States numbness in his 5th and 4th finger. Allergies No Known Allergies Allergy (Mild, Verified 06/26/24 08:45) NKA Medication List - Last Reconciled 07/13/24 by Priscilla Ho PA-C acetaminophen 650 mg (2 x 325 mg) PO Q4-6H PRN 30 days celecoxib (Celebrex) 200 mg PO BID 30 days escitalopram oxalate 20 mg PO DAILY oxycodone 5 mg PO Q6H PRN 7 days HPI HPI OV- MRI review Right Elbow fracture: Details: 64 yo male returns to the office today f/u MRI right elbow. He states he continues to have some pain in the right elbow with significant weakness. 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 Review of Systems Const All systems reviewed & are unremarkable except as noted in HPI and below Physical Exam Const General: cooperative, healthy appearing, comfortable, no acute distress, well developed and alert Orientation/consciousness: patient oriented x3 HEENT Head: Yes normal to inspection, Yes normocephalic and Yes atraumatic Eyes General: appearance normal, both eyes and all related structures Neck Neck: Yes normal visual inspection and Yes no lymphadenopathy Resp Effort & Inspection: normal respiratory effort and able to speak in complete sentences Cardio Rate: regular rate Peripheral pulses: Peripheral pulses 2+ throughout GI Inspection: Yes normal to inspection Palpation (GI): Soft to palpation Skin General skin exam: no rashes or lesions noted Lesions: no lesions Rashes: no rashes Neuro General: patient oriented x3 Extrem Other: Right elbow: Normal to inspection. He does have tenderness over the insertion site of the triceps. He can perform flexion and extension of elbow with minimal discomfort. Weakness with strength testing when compared to contralateral side. Intermittent numbness along the ulnar nerve distribution. NVI. Psych Appearance: grossly normal Mental Status: mental status grossly normal Results Reviewed Results Reviewed: elbow RT wo con 07/04/24 IMPRESSION: High-grade partial tear of the triceps tendon insertion as described. The superficial/central portion of the tendon along with an enthesophyte of the olecranon has avulsed and retracted approximately 2.3 cm with fluid and surrounding soft tissue edema. Chronic common extensor tendinopathy with interstitial partial tearing. Assessment & Plan Assessment & Plan (1) Rupture of right triceps tendon: Code(s): S46.311A - Strain of muscle, fascia and tendon of triceps, right arm, initial encounter Category: Medical Plan: I reviewed the the MRI with the patient in detail and explained this is something that would benefit from surgical intervention to repair. I explained the procedure in detail and explained this takes anywhere from 6-12 weeks to fully recover from as there needs to be a period of immobilization and then some potential physical therapy. I discussed with him the risks, benefits and alternatives to the procedure. Risks including, but not limited to infection, re-rupture of the tendon, stiffness and some lack of strength. He does understand all this and would like to proceed with right triceps tendon repair with . He will be booked accordingly I also explained to the patient with symptoms of acute cubital tunnel on the right this is something that could potentially resolve over the next 3-6 months however if it does become constant and worsened over time he may benefit from a cubital tunnel release on the right. I discussed with him the procedure in detail for a right cubital tunnel release. I discussed with him the risks benefits and alternative risks including but not limited to intermittent numbness stiffness pain and tissue/nerve damage the surrounding areas. He does understand all this and is open to proceeding accordingly if necessary. Medications: New oxycodone Partial Fill upon patient request. 5 mg PO Q6H PRN 42 tabs 0RF pain 7 days Z96.652 - Presence of left artificial knee joint acetaminophen 650 mg (2 x 325 mg) PO Q4-6H PRN 240 tabs 0RF fever or pain 30 days Coding Level of Care Code Est Pt Level 4 (20147) Diagnoses Rupture of right triceps tendon S46.311A
== END 2024-07-13 09:54 | disposition home or self-care (01) ==
PROVIDERS: PCP Internal Medicine; Visit Provider Physician Assistant
DX: S46.311A Strain of muscle, fascia and tendon of triceps, right arm, initial encounter (principal)
CPT/HCPCS: 99214

== ENCOUNTER → 2024-07-13 08:45 | Outpatient (BNVA) | payer OTHER, SELFPAY | PROVIDERS: PCP Internal Medicine; Visit Provider Physician Assistant | DX: S46.311A Strain of muscle, fascia and tendon of triceps, right arm, initial encounter (principal); X58.XXXA Exposure to other specified factors, initial encounter; Y93.9 Activity, unspecified; Y92.9 Unspecified place or not applicable; Y99.9 Unspecified external cause status | CPT/HCPCS: 99212 ==

== ENCOUNTER 2024-07-17 10:33 | Day surgery (SDC) | payer OTHER, SELFPAY ==
--- OUTSIDE RECORDS SUMMARY | 2024-07-14 11:59 | XMS_ITS | Patient Health Record ---
Author Organization [facility] Address [address] [place] [address] Care Team Providers Care Spectral Scientist Name Role Phone Denys Christianson MD Primary Care Provider Karma Mitchell Unavailable [phone] ALLERGIES No Known Allergies REASON FOR REFERRAL Referring Provider First Name Denys Referring Provider Last Name Sammy Referring Provider Speciality Internal M edicine Referred Organization [facility] Referred Provider Karma Casper Referred Address [address],[place], [place],[address], Referred Provider Specialty Gastroentero logy Referral Priority [...] malignant neoplasm of colon (Z12.11) Active confirmed 449818186 Problem History of adenomatous polyp of colon (Z86.010) Active confirmed 040896571 Problem Personal history of colonic polyps (Z86.010) Active confirmed History of poly p of colon (situation) (390415434) Problem Diverticulosis of large intestine without perforation or abscess without bleeding (K57.30) Active confirmed Diverticul ar disease of colon (569433693) Problem Preprocedural examination (Z01.818) Active confirmed 078148420459871 VITAL SIGNS Blood pressure diastolic 00 mm Hg 09/26/2023 Height 67.5 in 09/26/2023 Blood pressure systolic 00 mm Hg 09/26/2023 Weight 216 lbs 09/26/2023 BMI 33.33 kg/m2 09/26/2023 Encounters Encounter Location Date Provider Diagnosis [facility] Out[facility] [address] [place], [place] [phone] 02/24/2024 Karma Casper Encounter for screen ing colonoscopy Z12.11 ; Personal history of colonic polyps Z86.010 ; Diverticulosis of large intestine without perforation or abscess without bleeding K57.30 and Other hemorrhoids K64.8 [facility] [address] [place] [address] 09/26/2023 Karma Casper History of adenomato us [...] Insured Coverage Start Date Coverage End Date [facility] PROFESSIONAL CLAIMS [address] [place] [address] [id number] AKRMA NULL Self - patient is the insured MEDICAL (GENERAL) HISTORY Medical History History ICD Code Denies [place],DM,CVA,Lung disease,renal dise ase Anxiety He had a [...]
--- OUTSIDE RECORDS SUMMARY | 2024-07-14 11:59 | XMS_ITS ---
Author Organization [facility] Address [address] [place] [address] Care Team Providers Care Director Of Cath Lab Name Role Phone Denys Christianson MD Primary Care Provider Karma Mitchell Unavailable [phone] ALLERGIES No Known Allergies REASON FOR VISIT [...] 09/26/2023 Encounters Encounter Location Date Provider Diagnosis [facility] [address] [place] [address] 09/26/2023 Karma Casper History of adenomato us [...]
--- OUTSIDE RECORDS SUMMARY | 2024-07-14 11:59 | XMS_ITS | Patient Health Record ---
Author Organization Denys Christianson MD Address [address] [place], [place] [phone] Care Team Providers Care Wheel And Caster Repairer Name Role Phone Denys Christianson Primary Care Provider ALLERGIES Allergen (clinical drug ingredient) Drug/Non Drug Allergy documented on EMR Reaction Allergy Type Onset Date Status bees (uncoded) body swelling Allergy A ctive RESULTS Component Value Reference Range Notes Complete Blood Count Auto Di ff Reviewed date:04/30/2024 09:27:57 PM Interpretation: Performing Lab:[facility], [address] [place] [address] Notes/Report: White Blood Count 6.6 4.8-10.8 X10*3/uL [...] NRBC Abs Auto 0.000 0.0-0.012 X10*3/uL Comprehensive [place]. Panel Fa st Reviewed date:04/30/2024 09:27:30 PM Interpretation: Performing Lab:[facility], [address] [place] [address] Notes/Report: Sodium 141 135-145 mmol/L Potassium 4.6 3.3-5.1 mmol/L Chloride 107 96-108 mmol/L Carbon Dioxide 28 22-29 mmol/L Anion Gap 11 12-20 Blood Urea Nitrogen 17 9-16 mg/dL Creatinine 1.33 0.5-1.4 mg/dL Estimated Glomerular Filt Rate 54 NOTE: For -[place] individuals, multiply the result by 1.210. Chronic [...] Panel Reviewed date:04/29/2024 06:41:08 PM Interpretation: Performing Lab:[address] [address] Notes/Report: Triglycerides 163 <150 mg/dL Desirable Triglyceride: [...] (Free>4and<10) Reviewed date:04/29/2024 06:41:57 PM Interpretation: Performing Lab:[address] [address] Notes/Report: PSA,Total (Free>4and<10) 0.25 0.00-4.00 ng/mL A [...] Random Reviewed date:04/29/2024 06:42:55 PM Interpretation: Performing Lab:[address] [place] [address] Notes/Report: Creatinine Urine 316.91 Microalbumin Urine 11.0 Microalbum/Creatinine Ratio Ur 3.4 <30 ug/mg cr Albumin/Creatinine Ratio Reference Ranges: Normal: < 30 ug/mg creatinine Microalbuminuria: 30 - 300 ug/mg creatinine Clinical Albuminuria: > 300 ug/mg creatinine Hemoglobin A1c Reviewed date:04/29/2024 06:41:49 PM Interpretation: Performing Lab:[address] [address] Notes/Report: Hemoglobin A1c % 5.6 <6.0 % [...] average glucose, using the formula of the M4A-Rhfhszs Average Glucose study (ADAG), Diabetes Care, Vol.31,#8, Feb. 2007 UA ClnCatch+Micro w/rflx Cul t Reviewed date:04/29/2024 06:51:27 PM Interpretation: Performing Lab:[address] [address] Notes/Report: Urine, Clean Catch Color Urine Yellow Appearance Urine Clear PH 5.5 5.0-9.0 Glucose Urine UA Negative Negative mg/dL Urine Blood Negative Negative Specific [place] - Urine 1.025 1.005-1.025 Urine Protein Negative [...] date:06/21/2024 11:47:30 AM Interpretation: Performing Lab: Notes/Report: [address] [address] XRay Report Signed Patient: Abdiel Null MR#: [id number] 53 : 1960 Acct:[id number] Age/Sex: 64 / M ADM Date: 06/21/24 Loc: HO.ED Attending Dr: Ordering Physician: Jose G Wong MD Date of Service: 06/21/24 Procedure(s): XR humerus RT Accession Number(s): [id number] cc: Denys Christianson MD; Jose G Wong [...] 06/21/24 1058 DD/ 0810 TD/TT: 06/21/24 0820 Collision Technician: NITZA XR elbow RT 2V Reviewed date:06/21/2024 11:47:14 AM Interpretation: Performing Lab: Notes/Report: [address] [address] XRay Report Signed Patient: Abdiel Null MR#: [id number] 53 : 1960 Acct:[id number] Age/Sex: 64 / M ADM Date: 06/21/24 Loc: HO.ED Attending Dr: Ordering Physician: Jose G Wong MD Date of Service: 06/21/24 Procedure(s): XR elbow RT 2V Accession Number(s): [id number] cc: Denys Christianson MD; Jose G Wong [...] by: Nathaniel Vargas MD 06/21/2024 10:58 AM [facility] Dictated By: Nathaniel Vargas MD Signed By: <Electronically signed by Nathaniel Vargas MD in OV> 06/21/24 1058 DD/ 08 TD/TT: 06/21/24 0820 Collision Technician: NITZA XR forearm RT 2V Reviewed date:06/21/2024 11:47:38 AM Interpretation: Performing Lab: Notes/Report: [address] [address] XRay Report Signed Patient: Abdiel Null MR#: [id number] 53 : 1960 Acct:[id number] Age/Sex: 64 / M ADM Date: 06/21/24 Loc: HO.ED Attending Dr: Ordering Physician: Kalli Norwood Date of Service: 06/21/24 Procedure(s): XR forearm RT 2V Accession Number(s): [id number] cc: Denys Christianson MD; Kalli Norwood EXAMINATION: [...] 06/21/24 1058 DD/ 08 TD/TT: 06/21/24 0820 Collision Technician: NITZA MR elbow RT wo con Reviewed date:07/04/2024 04:02:43 PM Interpretation: Performing Lab: Notes/Report: [address] [address] Magnetic Resonance Report Signed Patient: Abdiel Null MR#: [id number] 53 : 1960 Acct:[id number] Age/Sex: 64 / M ADM Date: 07/04/24 Loc: HO.MRI Attending Dr: Priscilla Ho PA-C Ordering Physician: Priscilla Ho PA-C Date of Service: 07/04/24 Procedure(s): MR elbow RT wo con Accession Number(s): [id number] cc: Denys Christianson MD; Priscilla Ho PA-C [...] 07/04/24 1346 DD/ 1018 TD/TT: 07/04/24 1110 Collision Technician: GUANAKO REASON FOR REFERRAL No Information MEDICATIONS [...] Code Notes Problem Thrombocytopenia (D69.6) Active confirmed 770830751 Problem Abnormal results of liver function studies (R94.5) Active confirmed 317834821 Problem Tubular adenoma of colon (D12.6) Active confirmed 407571590 Problem Prediabetes (R73.09) Active confirmed 9638160 Problem History of smoking (Z87.898) Active confirmed 52226413146185161 Problem Food allergy (Z91.018) Active confirmed 337126366 Problem Meralgia paraesthetica, right (G57.11) Active confirmed Meralgia paresthetica (16053682) Problem Abnormal platelets (D69.1) Active confirmed Qualitative platelet disorder (271358859) Problem Anxiety attack (F41.0) Active confirmed 957682412 VITAL SIGNS Blood pressure diastolic 78 mm [...] Denys Christianson MD [address] [place] [phone] 05/15/2024 Denys Christianson Abnormal platelets D69.1 ; Annual physical exam Z00.00 ; Prediabetes R73.09 ; Colon cancer screening Z12.11 and Depression screening Z13.31 Denys Christianson MD [address] [place] [phone] 04/28/2024 Denys Christianson Blood tests for rout ine general physical examination Z00.00 ; Prediabetes R73.09 ; Thrombocytopenia D69.6 and Encounter for immunization Z23 Denys Christianson MD [address] [place] [phone] 06/22/2024 Denys Christianson ASSESSMENTS Encounter Date Diagnosis [...] Details Provider Name:Denys figueroa, 05/11/2025 08:00:00 AM, [address] [place] [address], [phone], Provider Name:Denys Claudio ier, 05/18/2025 08:30:00 AM, [address] [place] [address], [place] [address], [place], [place], [phone], Insurance Providers Payer Name Payer Address Payer Phone Subscriber Number Group Number Insured Name Patient Relationship to Insured Coverage Start Date Coverage End Date [employer] [address] [place], [place] [id number] Abdiel Null Self - patient is the insured MEDICAL (GENERAL) HISTORY Medical History History ICD Code Colonoscopy 12/25/[address] Casper, had colonoscopy 03/12/19 repeat in 5 years02/24/24 repeat 5y
--- OUTSIDE RECORDS SUMMARY | 2024-07-14 11:59 | XMS_ITS ---
Author Organization Denys Christianson MD Address [address] [place], [place] [phone] Care Team Providers Care Sail Repairer Name Role Phone Denys Christianson Primary Care Provider [phone] ALLERGIES Allergen (clinical drug ingredient) Drug/Non Drug [...] Location Date Provider Diagnosis Denys Christianson MD [address] [place] [address] [place] [phone] 05/15/2024 Denys Christianson Abnormal platelets D69.1 ; [...] Reason: Provider Name:Denys figueroa, 05/11/2025 08:00:00 AM, [address] [place] [address], [address] [place] [address], [phone], Provider Name:Denys figueroa, 05/18/2025 08:30:00 AM, [address] [place] [address], [place] [address], [place], [place], [phone], Progress Notes * Examination Category Sub-Category Detail [...]
--- OUTSIDE RECORDS SUMMARY | 2024-07-14 11:59 | XMS_ITS ---
Author Organization Densy Christianson MD Address [address] [place], [place] [phone] Care Team Providers Care Pump House Engineer Name Role Phone Denys Christianson Primary Care Provider RESULTS Component Value Reference Range Notes Complete Blood Count Auto Di ff Reviewed date:04/30/2024 09:27:57 PM Interpretation: Performing Lab:[facility], [address] [place] [phone] Notes/Report: White Blood Count 6.6 4.8-10.8 X10*3/uL [...] NRBC Abs Auto 0.000 0.0-0.012 X10*3/uL Comprehensive [place]. Panel Fa st Reviewed date:04/30/2024 09:27:30 PM Interpretation: Performing Lab:[facility], [address] [place] [phone] Notes/Report: Sodium 141 135-145 mmol/L Potassium 4.6 3.3-5.1 mmol/L Chloride 107 96-108 mmol/L Carbon Dioxide 28 22-29 mmol/L Anion Gap 11 12-20 Blood Urea Nitrogen 17 9-16 mg/dL Creatinine 1.33 0.5-1.4 mg/dL Estimated Glomerular Filt Rate 54 NOTE: For -Malian individuals, multiply the result by 1.210. Chronic [...] date:04/29/2024 06:41:08 PM Interpretation: Performing Lab:[facility], [address] [place] [address] Notes/Report: Triglycerides 163 <150 mg/dL Desirable Triglyceride: [...] date:04/29/2024 06:41:57 PM Interpretation: Performing Lab:[facility], [address] [place] [phone] Notes/Report: PSA,Total (Free>4and<10) 0.25 0.00-4.00 ng/mL A [...] date:04/29/2024 06:42:55 PM Interpretation: Performing Lab:[facility], [address] [place] [phone] Notes/Report: Creatinine Urine 316.91 Microalbumin Urine 11.0 Microalbum/Creatinine Ratio Ur 3.4 <30 ug/mg cr Albumin/Creatinine Ratio Reference Ranges: Normal: < 30 ug/mg creatinine Microalbuminuria: 30 - 300 ug/mg creatinine Clinical Albuminuria: > 300 ug/mg creatinine Hemoglobin A1c Reviewed date:04/29/2024 06:41:49 PM Interpretation: Performing Lab:[facility], [address] [place] [address] Notes/Report: Hemoglobin A1c % 5.6 <6.0 % [...] average glucose, using the formula of the P6R-Ziqrvjz Average Glucose study (ADAG), Diabetes Care, Vol.31,#8, Feb. 2007 UA ClnCatch+Micro w/rflx Cul t Reviewed date:04/29/2024 06:51:27 PM Interpretation: Performing Lab:[facility], [address] [place] [phone] Notes/Report: Urine, Clean Catch Color Urine Yellow Appearance Urine Clear PH 5.5 5.0-9.0 Glucose Urine UA Negative Negative mg/dL Urine Blood Negative Negative Specific [place] - Urine 1.025 1.005-1.025 Urine Protein Negative [...] [address] [place], [place] [phone] 04/28/2024 Denys Christianson Blood tests for rout [...] Details Provider Name:Denys figueroa, 05/11/2025 08:00:00 AM, [address] [place] [address], [address], [phone], Provider Name:Denys figueroa, 05/18/2025 08:30:00 AM, [address] [place] [address], [place] [address], [place], [place], [phone],
--- OUTSIDE RECORDS SUMMARY | 2024-07-14 11:59 | XMS_ITS ---
Author Organization [facility] Address [address] [place] [address] Care Team Providers Care National Sales Trainer Name Role Phone Denys Christianson MD Primary Care Provider UnaKarma Mcdermott Unavailable [phone] REASON FOR VISIT screening,hx polyps PROBLEMS Problem Type ICD Code Onset Dates Problem Status W/U Status Risk SNOMED Code Notes Problem Personal history of colonic polyps (Z86.010) Active confirmed History of polyp of colon (situation) (619535325) Problem Diverticulosis of large intestine without perforation or abscess without bleeding (K57.30) Active confirmed Diverticul ar disease of colon (847923361) Encounters Encounter Location Date Provider Diagnosis [facility] [place] [address] [place] [phone] 02/24/2024 Karma Casper Encounter for scre ening [...]
--- OUTSIDE RECORDS SUMMARY | 2024-07-14 11:59 | XMS_ITS ---
Author Organization Denys Christianson MD Address [address] [place] [phone] Care Team Providers Care Communications Instructor Name Role Phone Denys Christianson Primary Care Provider [phone] REASON FOR VISIT ER Encounters Encounter Location Date Provider Diagnosis Denys Christianson MD [address] [facility] [address] [place] [phone] 06/22/2024 Denys Christianson PLAN OF TREATMENT Next Appt Details Provider Name:Denys Claudio iekhoi, 05/11/2025 08:00:00 AM, [address] [place] [address], [address], [phone], Provider Name:Denys Claudio ier, 05/18/2025 08:30:00 AM, [address] [place] [address], [place] [address], [place], [place], [phone],
--- NOTE | 2024-07-14 13:49 | HO.ANESPROP2 ---
Documented by User: Bertha Rivera NP 07/14/24 13:50 HPI - Anesthesia Eval Consult details Narrative: 64yo M for Right Tricep Tendon Repair PMFSH Active Problems Active Problems: All Active Problems Rupture of right triceps tendon (Acute) Anxiety (Acute) Past Medical History Medical History History of Mohs micrographic surgery for skin cancer Skin cancer, basal cell Fatty liver Anxiety Family History Family history of problems with anesthesia: No Surgical History Surgical History Hx of bilateral cataract extraction Hx of left inguinal hernia repair H/O colonoscopy History of Problems with Anesthesia: No Social History Social History Household Members: Spouse Are you a primary home care coordinator to a significant other at home: No Do you presently have visiting nurse or other home services: No Alcohol intake: current Alcohol intake frequency: a few times a month Patient Tobacco Use Status: Former Tobacco user Tobacco use type: Cigarette Years Smoked: 9 Smoked in Last 30 Days: No Use of substances other than those prescribed or required for medical reasons: No Have you been hit, kicked, punched, or otherwise hurt by someone within the past year? 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 Meds Allergies Allergy/AdvReac Type Severity Reaction Status Date / Time No Known Allergies Allergy Mild NKA Verified 06/26/24 08:45 Home Medications ?Medication ?Instructions ?Recorded ?Confirmed ?Last Taken ?Type escitalopram oxalate 20 mg tablet 20 mg PO DAILY 02/20/24 07/17/24 02/23/24 History Exam Pertinent Lab Results Pertinent Lab Results: Laboratory Tests 04/28/24 07:15 WBC 6.6 Hgb 16.2 Hct 48.2 Plt Count 166 Sodium 141 Potassium 4.6 Chloride 107 Carbon Dioxide 28 BUN 17 H Creatinine 1.33 Assessment and Plan Assessment Anesthesia Assessment: Chart Reviewed Final Anesthetic Review Family History of Problems with Anesthesia: No History of Problems with Anesthesia: No Documented by User: Shanthi Hernandez MD 07/17/24 12:18 PMFSH Past Medical History Medical History History of Mohs micrographic surgery for skin cancer Skin cancer, basal cell Fatty liver Anxiety Functional capacity: bed bound Surgical History Surgical History Hx of bilateral cataract extraction Hx of left inguinal hernia repair H/O colonoscopy Social History Social History Household Members: Spouse Are you a primary home care coordinator to a significant other at home: No Do you presently have visiting nurse or other home services: No Alcohol intake: current Alcohol intake frequency: a few times a month Patient Tobacco Use Status: Former Tobacco user Tobacco use type: Cigarette Years Smoked: 9 Smoked in Last 30 Days: No Use of substances other than those prescribed or required for medical reasons: No Have you been hit, kicked, punched, or otherwise hurt by someone within the past year? 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 Meds Allergies Allergy/AdvReac Type Severity Reaction Status Date / Time No Known Allergies Allergy Mild NKA Verified 06/26/24 08:45 Home Medications ?Medication ?Instructions ?Recorded ?Confirmed ?Last Taken ?Type escitalopram oxalate 20 mg tablet 20 mg PO DAILY 02/20/24 07/17/24 02/23/24 History Exam Airway Mallampati Class: III (full soto) TM Dist: >3cm Neck ROM: Full Loose/Missing/Broken Teeth: No Heart: RRR Lungs: CTA Assessment and Plan Assessment Anesthesia Assessment: Anesthesia Plan Discussed Final Anesthetic Review NPO: Yes ASA Class: II Final Preanesthetic Review: Meds/Allgs Chart Reviewed, Consent Obtained/Reviewed and Anes Risks/Benef Reviewed Patient Risk: Low Procedure Risk: Low Anesthetic Plan Anesthetic Plan: GA Disposition: Standard PACU
[2024-07-17] VITALS (14 sets, daily range): BP systolic 130–178; BP diastolic 75–97; PULSE 66–78; RESP 16–20; TEMP 36.2–36.3; O2SAT 92–99; BMI 32.6
[2024-07-17] MEDS: Lactated Ringers 1,000 ML 100 ML IVCONT (11:01)
--- OUTSIDE RECORDS SUMMARY | 2024-07-17 12:02 | XMS_ITS ---
Author Organization [facility] Address [address] [place] [address] Care Team Providers Care Notary Public Name Role Phone Denys Christianson MD Primary Care Provider Karma Mitchell Unavailable [phone] ALLERGIES No Known Allergies REASON FOR VISIT [...] 09/26/2023 Encounters Encounter Location Date Provider Diagnosis [facility] [address] [place] [phone] 09/26/2023 Karma Casper History of adenomato us [...]
--- OUTSIDE RECORDS SUMMARY | 2024-07-17 12:02 | XMS_ITS | Patient Health Record ---
Author Organization Denys Christianson MD Address [address] [place], [place] [id number] Care Team Providers Care Advertising Manager Name Role Phone Denys Christianson Primary Care Provider ALLERGIES Allergen (clinical drug ingredient) Drug/Non Drug Allergy documented on EMR Reaction Allergy Type Onset Date Status bees (uncoded) body swelling Allergy A ctive RESULTS Component Value Reference Range Notes Complete Blood Count Auto Di ff Reviewed date:04/30/2024 09:27:57 PM Interpretation: Performing Lab:[facility], [address] [place] [phone] Notes/Report: White Blood Count 6.6 4.8-10.8 X10*3/uL [...] NRBC Abs Auto 0.000 0.0-0.012 X10*3/uL Comprehensive [place]. Panel Fa st Reviewed date:04/30/2024 09:27:30 PM Interpretation: Performing Lab:[facility], [address] [place] [phone] Notes/Report: Sodium 141 135-145 mmol/L Potassium 4.6 [...] Panel Reviewed date:04/29/2024 06:41:08 PM Interpretation: Performing Lab:[address] [phone] Notes/Report: Triglycerides 163 <150 mg/dL Desirable Triglyceride: [...] (Free>4and<10) Reviewed date:04/29/2024 06:41:57 PM Interpretation: Performing Lab:[address] [address] Notes/Report: PSA,Total (Free>4and<10) 0.25 0.00-4.00 ng/mL A [...] Random Reviewed date:04/29/2024 06:42:55 PM Interpretation: Performing Lab:[address] [place] [address] Notes/Report: Creatinine Urine 316.91 Microalbumin Urine 11.0 Microalbum/Creatinine Ratio Ur 3.4 <30 ug/mg cr Albumin/Creatinine Ratio Reference Ranges: Normal: < 30 ug/mg creatinine Microalbuminuria: 30 - 300 ug/mg creatinine Clinical Albuminuria: > 300 ug/mg creatinine Hemoglobin A1c Reviewed date:04/29/2024 06:41:49 PM Interpretation: Performing Lab:[address] [phone] Notes/Report: Hemoglobin A1c % 5.6 <6.0 % [...] average glucose, using the formula of the T9W-[place] Average Glucose study (ADAG), Diabetes Care, Vol.31,#8, Feb. 2007 UA ClnCatch+Micro w/rflx Cul t Reviewed date:04/29/2024 06:51:27 PM Interpretation: Performing Lab:[address] [address] Notes/Report: Urine, Clean Catch Color Urine Yellow Appearance Urine Clear PH 5.5 5.0-9.0 Glucose Urine UA Negative Negative mg/dL Urine Blood Negative Negative Specific Gratis - Urine 1.025 1.005-1.025 Urine Protein Negative [...] date:06/21/2024 11:47:30 AM Interpretation: Performing Lab: Notes/Report: [address] [address] XRay Report Signed Patient: Abdiel Null MR#: [id number] 53 : 1960 Acct:[id number] Age/Sex: 64 / M ADM Date: 06/21/24 Loc: HO.ED Attending Dr: Ordering Physician: Jose G Wong MD Date of Service: 06/21/24 Procedure(s): XR humerus RT Accession Number(s): [id number] cc: Denys Christianson MD; Jose G Wong [...] MD 06/21/2024 10:58 AM EST Dictated By: Ntahaniel Varags MD Signed By: <Electronically signed by Nathaniel Vargas MD in OV> 06/21/24 1058 DD/ 0810 TD/TT: 06/21/24 0820 Transistor Tester: NITZA XR elbow RT 2V Reviewed date:06/21/2024 11:47:14 AM Interpretation: Performing Lab: Notes/Report: [address] [address] XRay Report Signed Patient: Abdiel Null MR#: [id number] 53 : 1960 Acct:[id number] Age/Sex: 64 / M ADM Date: 06/21/24 Loc: HO.ED Attending Dr: Ordering Physician: Jose G Wong MD Date of Service: 06/21/24 Procedure(s): XR elbow RT 2V Accession Number(s): [id number] cc: Denys Christianson MD; Jose G Wong [...] MD 06/21/2024 10:58 AM [facility] Dictated By: Nathaniel Vargas MD Signed By: <Electronically signed by Nathaniel Vargas MD in OV> 06/21/24 1058 DD/ 08 TD/TT: 06/21/24 0820 Transistor Tester: NITZA XR forearm RT 2V Reviewed date:06/21/2024 11:47:38 AM Interpretation: Performing Lab: Notes/Report: [address] [address] XRay Report Signed Patient: Abdiel Null MR#: [id number] 53 : 1960 Acct:[id number] Age/Sex: 64 / M ADM Date: 06/21/24 Loc: HO.ED Attending Dr: Ordering Physician: Kalli Norwood Date of Service: 06/21/24 Procedure(s): XR forearm RT 2V Accession Number(s): [id number] cc: Denys Christianson MD; Kalli Norwood EXAMINATION: [...] 06/21/24 1058 DD/ 08 TD/TT: 06/21/24 0820 Transistor Tester: NITZA MR elbow RT wo con Reviewed date:07/04/2024 04:02:43 PM Interpretation: Performing Lab: Notes/Report: [address] [address] Magnetic Resonance Report Signed Patient: Abdiel Null MR#: [id number] 53 : 1960 Acct:[id number] Age/Sex: 64 / M ADM Date: 07/04/24 Loc: HO.MRI Attending Dr: Priscilla Ho PA-C Ordering Physician: Priscilla Ho PA-C Date of Service: 07/04/24 Procedure(s): MR elbow RT wo con Accession Number(s): [id number] cc: Denys Christianson MD; Priscilla Ho PA-C [...] 07/04/24 1346 DD/ 1018 TD/TT: 07/04/24 1110 Transistor Tester: GUANAKO REASON FOR REFERRAL No Information MEDICATIONS [...] Code Notes Problem Thrombocytopenia (D69.6) Active confirmed 767547041 Problem Abnormal results of liver function studies (R94.5) Active confirmed 909924058 Problem Tubular adenoma of colon (D12.6) Active confirmed 703018478 Problem Prediabetes (R73.09) Active confirmed 3588533 Problem History of smoking (Z87.898) Active confirmed 62345160059500163 Problem Food allergy (Z91.018) Active confirmed 187251632 Problem Meralgia paraesthetica, right (G57.11) Active confirmed Meralgia paresthetica (04512850) Problem Abnormal platelets (D69.1) Active confirmed Qualitative platelet disorder (057553750) Problem Anxiety attack (F41.0) Active confirmed 831957777 VITAL SIGNS Blood pressure diastolic 78 mm [...] Denys Christianson MD [address] [place] [phone] 05/15/2024 Denys Christianson Abnormal platelets D69.1 ; Annual physical exam Z00.00 ; Prediabetes R73.09 ; Colon cancer screening Z12.11 and Depression screening Z13.31 Denys Christianson MD [address] [place] [phone] 04/28/2024 Denys Christianson Blood tests for rout ine general physical examination Z00.00 ; Prediabetes R73.09 ; Thrombocytopenia D69.6 and Encounter for immunization Z23 Denys Christianson MD [address] [place] [phone] 06/22/2024 Denys Christianson ASSESSMENTS Encounter Date Diagnosis [...] Details Provider Name:Denys figueroa, 05/11/2025 08:00:00 AM, [address] [place] [address], [phone], Provider Name:Denys Claudio ier, 05/18/2025 08:30:00 AM, [address] [place] [address], [place] [address], [place], [place], [phone], Insurance Providers Payer Name Payer Address Payer Phone Subscriber Number Group Number Insured Name Patient Relationship to Insured Coverage Start Date Coverage End Date [employer] [address] [place], [place] [phone] [id number] Abdiel Null Self - patient is the insured MEDICAL (GENERAL) HISTORY Medical History History ICD Code Colonoscopy 12/25/[address] Casper, had colonoscopy 03/12/19 repeat in 5 years02/24/24 repeat 5y
--- OUTSIDE RECORDS SUMMARY | 2024-07-17 12:02 | XMS_ITS ---
Author Organization [facility] Address [address] [place] [address] Care Team Providers Care Journeyman Pressman Name Role Phone Denys Christianson MD Primary Care Provider UnaKarma Mcdermott Unavailable [phone] REASON FOR VISIT screening,hx polyps PROBLEMS Problem Type ICD Code Onset Dates Problem Status W/U Status Risk SNOMED Code Notes Problem Personal history of colonic polyps (Z86.010) Active confirmed History of polyp of colon (situation) (714687820) Problem Diverticulosis of large intestine without perforation or abscess without bleeding (K57.30) Active confirmed Diverticul ar disease of colon (881017988) Encounters Encounter Location Date Provider Diagnosis [facility] Outpatient [address] [place] [phone] 02/24/2024 Karma Casper Encounter for scre ening [...]
--- OUTSIDE RECORDS SUMMARY | 2024-07-17 12:02 | XMS_ITS ---
Author Organization Denys Christianson MD Address [address] [place], [place] [phone] Care Team Providers Care Sole Leveling Machine Operator Name Role Phone Denys Christianson Primary Care [...] Location Date Provider Diagnosis Denys Christianson MD [address] [place] [address] [place] [phone] 05/15/2024 Denys Christianson Abnormal platelets D69.1 ; [...] Reason: Provider Name:Denys figueroa, 05/11/2025 08:00:00 AM, [address] [place] [address], [address] [place] [address], [phone], Provider Name:Denys figueroa, 05/18/2025 08:30:00 AM, [address] [place] [address], [place] [address], [place], [place], [phone], Progress Notes * Examination Category Sub-Category Detail [...]
--- OUTSIDE RECORDS SUMMARY | 2024-07-17 12:02 | XMS_ITS | Patient Health Record ---
Author Organization [facility] Address [address] [place] [address] Care Team Providers Care Product/Device Technologist Name Role Phone Denys Christianson MD Primary Care Provider Karma Mitchell Unavailable [phone] ALLERGIES No Known Allergies REASON FOR REFERRAL Referring Provider First Name Denys Referring Provider Last Name Sammy Referring Provider Speciality Internal M edicine Referred Organization [facility] Referred Provider Karma Casper Referred Address [address] [facility] [address],[place],[address], Referred Provider Specialty Gastroentero logy Referral Priority [...] malignant neoplasm of colon (Z12.11) Active confirmed 133862745 Problem History of adenomatous polyp of colon (Z86.010) Active confirmed 309561768 Problem Personal history of colonic polyps (Z86.010) Active confirmed History of poly p of colon (situation) (811667803) Problem Diverticulosis of large intestine without perforation or abscess without bleeding (K57.30) Active confirmed Diverticul ar disease of colon (506428706) Problem Preprocedural examination (Z01.818) Active confirmed 081631390160730 VITAL SIGNS Blood pressure diastolic 00 mm Hg 09/26/2023 Height 67.5 in 09/26/2023 Blood pressure systolic 00 mm Hg 09/26/2023 Weight 216 lbs 09/26/2023 BMI 33.33 kg/m2 09/26/2023 Encounters Encounter Location Date Provider Diagnosis [facility] Outpatient [address] [place], [place] [phone] 02/24/2024 Karma Casper Encounter for screen ing colonoscopy Z12.11 ; Personal history of colonic polyps Z86.010 ; Diverticulosis of large intestine without perforation or abscess without bleeding K57.30 and Other hemorrhoids K64.8 [facility] [address] [place] [address] 09/26/2023 Karma Casper History of adenomato us [...] Insured Coverage Start Date Coverage End Date [facility] [employer] [address] [place] [address] [id number] KARMA NULL Self - patient is the insured MEDICAL (GENERAL) HISTORY Medical History History ICD Code Denies ME,DM,CVA,Lung disease,renal dise ase Anxiety He had a [...]
--- OUTSIDE RECORDS SUMMARY | 2024-07-17 12:02 | XMS_ITS ---
Author Organization Denys Christianson MD Address [address] [place], [place] [phone] Care Team Providers Care Parent Partner Name Role Phone Denys Christianson Primary Care Provider [phone] RESULTS Component Value Reference Range Notes Complete Blood Count Auto Di ff Reviewed date:04/30/2024 09:27:57 PM Interpretation: Performing Lab:[facility], [address] [place] [phone] Notes/Report: White Blood Count 6.6 4.8-10.8 X10*3/uL [...] NRBC Abs Auto 0.000 0.0-0.012 X10*3/uL Comprehensive [place]. Panel Fa st Reviewed date:04/30/2024 09:27:30 PM Interpretation: Performing Lab:[facility], [address] [place] [phone] Notes/Report: Sodium 141 135-145 mmol/L Potassium 4.6 3.3-5.1 mmol/L Chloride 107 96-108 mmol/L Carbon Dioxide 28 22-29 mmol/L Anion Gap 11 12-20 Blood Urea Nitrogen 17 9-16 mg/dL Creatinine 1.33 0.5-1.4 mg/dL Estimated Glomerular Filt Rate 54 NOTE: For -Cambodian individuals, multiply the result by 1.210. Chronic [...] Panel Reviewed date:04/29/2024 06:41:08 PM Interpretation: Performing Lab:[facility], [address] [place] [phone] Notes/Report: Triglycerides 163 <150 mg/dL Desirable Triglyceride: [...] (Free>4and<10) Reviewed date:04/29/2024 06:41:57 PM Interpretation: Performing Lab:[facility], [address] [place] [phone] Notes/Report: PSA,Total (Free>4and<10) 0.25 0.00-4.00 ng/mL A [...] Random Reviewed date:04/29/2024 06:42:55 PM Interpretation: Performing Lab:[facility], [address] [place] [phone] Notes/Report: Creatinine Urine 316.91 Microalbumin Urine 11.0 Microalbum/Creatinine Ratio Ur 3.4 <30 ug/mg cr Albumin/Creatinine Ratio Reference Ranges: Normal: < 30 ug/mg creatinine Microalbuminuria: 30 - 300 ug/mg creatinine Clinical Albuminuria: > 300 ug/mg creatinine Hemoglobin A1c Reviewed date:04/29/2024 06:41:49 PM Interpretation: Performing Lab:[facility], [address] [place] [address] Notes/Report: Hemoglobin A1c % 5.6 <6.0 % [...] average glucose, using the formula of the Y8D-[place]el[place] Average Glucose study (ADAG), Diabetes Care, Vol.31,#8, Feb. 2007 UA ClnCatch+Micro w/rflx Cul t Reviewed date:04/29/2024 06:51:27 PM Interpretation: Performing Lab:[facility], [address] [place] [phone] Notes/Report: Urine, Clean Catch Color Urine Yellow Appearance Urine Clear PH 5.5 5.0-9.0 Glucose Urine UA Negative Negative mg/dL Urine Blood Negative Negative Specific [place] - Urine 1.025 1.005-1.025 Urine Protein Negative [...] Provider Diagnosis Denys Christianson MD [address] [place], [place] [phone] 04/28/2024 Denys Christianson Blood tests for rout [...] Details Provider Name:Denys figueroa, 05/11/2025 08:00:00 AM, [address] [place] [address], [address], [phone], Provider Name:Denys figueroa, 05/18/2025 08:30:00 AM, [address] [place] [address], [place] [address], [place], [place], [phone],
--- NOTE | 2024-07-17 12:42 | MHC.SHP ---
Pre-Procedural Eval Section A - 24 Hr Update-Section A only Date of Service: 07/17/24 The patient is an INPATIENT: No Changes since office visit: No Cold of Flu in the past 2 weeks, No New Medical Problems, No Changes in Medication and No Patient answered all questions The patient has been examined within 24 hours of the surgical procedure. The History & Physical has been completed within 30 days and I have reviewed it.: Yes Section B - Complete if H&P > 30 days Chief Complaint: Laceration of muscle, fascia and tendon of triceps Allergies: Allergies Allergy/AdvReac Type Severity Reaction Status Date / Time bee pollen [bees] Allergy Severe Swelling Verified 07/17/24 12:18 Plan I have reviewed the history and physical and performed a pertinent physical examination on my patient. No changes have occurred unless specified. Time Spent With Patient Time: Total time managing care of this patient today ____ minutes.
--- NOTE | 2024-07-17 14:20 | P.BOP_ITS ---
Brief Operative Note Date of Service: 07/17/24 Pre-op diagnosis: Right Triceps avulsion Post-op diagnosis: same Procedure: Right Triceps repair Implants: Hardin and Nephew Q-fix Ultra 2.8 all suture x 2 Hadrin and nephew Footprint mini 3.5 x 2 Large regeneten Bioinductive implant Hardin and Nephew Surgeon: Shantanu Faye MD Anesthesia: GETA and local Was an Framing Mechanic used for this Procedure?: Yes Framing Mechanic: Priscilla Ho Estimated blood loss (mL): 50 Tourniquet time (min): 0 IV fluids (mL): 800 Pathology: none sent Condition: stable Disposition: PACU
--- NOTE | 2024-07-17 14:28 | W.PM.OPN ---
Operative Note Operative Note Date of Service: 07/17/24 Narrative: ate of Service: 07/17/24 Pre-op diagnosis: Right Triceps avulsion Post-op diagnosis: same Procedure: Right Triceps repair Implants: Hardin and Nephew Q-fix Ultra 2.8 all suture x 2 Hardin and nephew Footprint mini 3.5 x 2 Large regeneten Bioinductive implant Hardin and Nephew Surgeon: Shantanu Faye MD Anesthesia: GETA and local Was an Sales Account Manager used for this Procedure?: Yes Sales Account Manager: Priscilla Ho Estimated blood loss (mL): 50 Tourniquet time (min): 0 IV fluids (mL): 800 Pathology: none sent Condition: stable Disposition: PACU Patient was brought to the operating room and placed prone on the surgical table. She was prepped and draped in standard sterile fashion and a time out was called to identify proper site, proper procedure and IV antibiotics per weight were administered. I began by making a ~6 cm incision over the olecranon and distal triceps tendon. I dissected down to the fascia overlying the tendon. This was in a high-grade tear with a avulsion fragment and proximally 20% of the tendon remaining attached. I kept the lateral attachments and cleaned up the tendon and remove the piece of avulsed bone. I placed 2q fix sutures proximally through the olecranon and brought these out deep to the triceps. I used a free needle to whipstitch these in to the triceps and reapproximated the central 80% of the tendon. I had excellent bite on the tendon and was able to reproduce the near normal anatomy of the tendon. I brought these 4 limbs distally to 2 footprint anchors placed 2 cm distal to the q-fix anchors. I had excellent reproduction of the normal anatomy. I could extend and flex to approximately 100 degrees without any tension on the repair. Because the piece of avulsed bone was removed there was a defect in the central portion of the tendon that was reapproximated but I felt a large Regeneten bio inductive implant would be beneficial. This was placed and sutured in with absorbable suture loosely. I examined the cubital tunnel at this point. There was no evidence of disruption of the fascia and the nerve was not encountered. I did not dissect anteriorly as the tear and the repair were distant to the nerve. I then irrigated copiously and closed with absorbable suture and ranjana. Sterile dressing were applied and the patient was placed in a posterior splint in approximately 45 degrees of flexion. He was then extubated and brought to the recovery room in stable condition. There were no known complications.
[2024-07-17] MEDS: HYDROmorphone HCl 0.5 MG/0.5 ML SYRINGE 0.25 MG IVPUSH ×4 (14:55→15:20)
== END 2024-07-17 16:03 | disposition home or self-care (01) ==
PROVIDERS: PCP Internal Medicine; Visit Provider Orthopaedic Surgery
PROC: (CPT 24341; principal; 2024-07-17 12:30)
DX: S46.311A Strain of muscle, fascia and tendon of triceps, right arm, initial encounter (principal); S42.401A Unspecified fracture of lower end of right humerus, initial encounter for closed fracture; X58.XXXA Exposure to other specified factors, initial encounter; Y93.9 Activity, unspecified; Y92.9 Unspecified place or not applicable; Y99.9 Unspecified external cause status; R20.0 Anesthesia of skin; F41.9 Anxiety disorder, unspecified; Z96.652 Presence of left artificial knee joint; Z85.828 Personal history of other malignant neoplasm of skin; K76.0 Fatty (change of) liver, not elsewhere classified; Z79.899 Other long term (current) drug therapy; Z87.891 Personal history of nicotine dependence
CPT/HCPCS: 24341; C1713; C1763; J0131; J0690; J1100; J1171; J2003; J2250; J2371; J2405; J2704; J2795; J3010

== ENCOUNTER → 2024-07-17 10:33 | Outpatient (BNV) | payer OTHER, SELFPAY | PROVIDERS: PCP Internal Medicine; Visit Provider Orthopaedic Surgery | DX: S46.311A Strain of muscle, fascia and tendon of triceps, right arm, initial encounter (principal) | CPT/HCPCS: 24342 ==

== ENCOUNTER 2024-07-20 13:46 | Outpatient (AMB) | payer OTHER, SELFPAY ==
--- NOTE | 2024-07-20 13:47 | A.OFFVIS_ITS ---
Intake Visit Reasons: PO-RT tricep tendon repair-brace fitting Intake Note: Abdiel is a 64 year old male who presents today for a post operative brace fitting s/p RT tricep tendon repair, DOS 07/17/24 NE. Patient reports he is doing well, states his first night from surgery he was spooked causing him to jolt, which had caused an increase of pain. Allergies bee pollen [bees] Allergy (Severe, Verified 07/20/24 13:52) Swelling HPI HPI PO-RT tricep tendon repair-brace fitting: Details: 64-year-old male returns to the office today status post right triceps tendon repair on 07/17/[address] Faye. Overall he is doing well. His pain is well managed. He remains out of work. 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 No erythema no drainage. He is able to fully extend the elbow. I can passively range him to 45 degrees of flexion. No pain with supination pronation. Neurovascularly intact. Assessment & Plan Assessment & Plan (1) Rupture of right triceps tendon: Code(s): S46.311A - Strain of muscle, fascia and tendon of triceps, right arm, initial encounter Category: Medical Plan: Patient was placed in an elbow yeuqa-wy-bswixk brace locked at 40 degrees of flexion. He should use this at all times including sleeping. He can remove for hygiene and exercises with physical therapy. He should avoid any flexion beyond 40 degrees. No lifting more than a cell phone. He will remain out of work until his next appointment in 1 week for staple removal sooner if needed. Coding Level of Care Code Global (47971) Diagnoses Rupture of right triceps tendon S46.311A
--- OUTSIDE RECORDS SUMMARY | 2024-07-20 16:11 | XMS_ITS ---
Author Organization Denys Christianson MD Address [address] [place] [phone] Care Team Providers Care Pattern Lease Inspector Name Role Phone Denys Christianson Primary Care Provider REASON FOR VISIT ER Encounters Encounter Location Date Provider Diagnosis Denys Christianson MD [address] [facility] [address] [place] [phone] 06/22/2024 Denys Christianson PLAN OF TREATMENT Next Appt Details Provider Name:Denys Claudio iekhoi, 05/11/2025 08:00:00 AM, [address] [place] [address], [address], [phone], Provider Name:Denys Claudio ier, 05/18/2025 08:30:00 AM, [address] [place] [address], [place] [address], [place], [place], [phone],
--- OUTSIDE RECORDS SUMMARY | 2024-07-20 16:11 | XMS_ITS ---
Author Organization Denys Christianson MD Address [address] [place], [place] [phone] Care Team Providers Care Filer And Sander Name Role Phone Denys Christianson Primary Care Provider [phone] RESULTS Component Value Reference Range Notes Complete Blood Count Auto Di ff Reviewed date:04/30/2024 09:27:57 PM Interpretation: Performing Lab:[facility], [address] [place] [phone] Notes/Report: White Blood Count 6.6 4.8-10.8 X10*3/uL [...] NRBC Abs Auto 0.000 0.0-0.012 X10*3/uL Comprehensive [place]. Panel Fa st Reviewed date:04/30/2024 09:27:30 PM Interpretation: Performing Lab:[facility], [address] [place] [phone] Notes/Report: Sodium 141 135-145 mmol/L Potassium 4.6 3.3-5.1 mmol/L Chloride 107 96-108 mmol/L Carbon Dioxide 28 22-29 mmol/L Anion Gap 11 12-20 Blood Urea Nitrogen 17 9-16 mg/dL Creatinine 1.33 0.5-1.4 mg/dL Estimated Glomerular Filt Rate 54 NOTE: For -[place] individuals, multiply the result by 1.210. Chronic [...] Panel Reviewed date:04/29/2024 06:41:08 PM Interpretation: Performing Lab:[facility], [address] [place] [phone] Notes/Report: Triglycerides 163 <150 mg/dL Desirable Triglyceride: [...] (Free>4and<10) Reviewed date:04/29/2024 06:41:57 PM Interpretation: Performing Lab:[facility], [address] [place] [phone] Notes/Report: PSA,Total (Free>4and<10) 0.25 0.00-4.00 ng/mL A [...] Random Reviewed date:04/29/2024 06:42:55 PM Interpretation: Performing Lab:[facility], [address] [place] [phone] Notes/Report: Creatinine Urine 316.91 Microalbumin Urine 11.0 Microalbum/Creatinine Ratio Ur 3.4 <30 ug/mg cr Albumin/Creatinine Ratio Reference Ranges: Normal: < 30 ug/mg creatinine Microalbuminuria: 30 - 300 ug/mg creatinine Clinical Albuminuria: > 300 ug/mg creatinine Hemoglobin A1c Reviewed date:04/29/2024 06:41:49 PM Interpretation: Performing Lab:[facility], [address] [place] [address] Notes/Report: Hemoglobin A1c % 5.6 <6.0 % [...] average glucose, using the formula of the G4M-Aozustw Average Glucose study (ADAG), Diabetes Care, Vol.31,#8, Feb. 2007 UA ClnCatch+Micro w/rflx Cul t Reviewed date:04/29/2024 06:51:27 PM Interpretation: Performing Lab:[facility], [address] [place] [phone] Notes/Report: Urine, Clean Catch Color Urine Yellow Appearance Urine Clear PH 5.5 5.0-9.0 Glucose Urine UA Negative Negative mg/dL Urine Blood Negative Negative Specific [place] - Urine 1.025 1.005-1.025 Urine Protein Negative [...] Provider Diagnosis Denys Christianson MD [address] [place], [place] [phone] 04/28/2024 Denys Christianson Blood tests for rout [...] Provider Name:Denys figueroa, 05/11/2025 08:00:00 AM, [address] [place] [address], [address], [phone], Provider Name:Denys figueroa, 05/18/2025 08:30:00 AM, [address] [place] [address], [place] [address], [place], [place], [phone],
--- OUTSIDE RECORDS SUMMARY | 2024-07-20 16:11 | XMS_ITS ---
Author Organization Denys Christianson MD Address [address] [place], [place] [phone] Care Team Providers Care Production Foreman Name Role Phone Denys Christianson Primary Care [...] Location Date Provider Diagnosis Denys Christianson MD [address] [place] [address] [place] [phone] 05/15/2024 Denys Christianson Abnormal platelets D69.1 ; [...] Reason: Provider Name:Denys figueroa, 05/11/2025 08:00:00 AM, [address] [place] [address], [address] [place] [address], [phone], Provider Name:Denys figueroa, 05/18/2025 08:30:00 AM, [address] [place] [address], [place] [address], [place], [place], [phone], Progress Notes * Examination Category Sub-Category Detail [...]
--- OUTSIDE RECORDS SUMMARY | 2024-07-20 16:12 | XMS_ITS ---
Author Organization [facility] Address [address] [place] [address] Care Team Providers Care Workday Manager Name Role Phone Denys Christianson MD Primary Care Provider Karma Mitchell Unavailable [phone] ALLERGIES No Known Allergies REASON FOR VISIT [...] 09/26/2023 Encounters Encounter Location Date Provider Diagnosis [facility] [address] [place] [phone] 09/26/2023 Karma Casper History of adenomato us [...]
--- OUTSIDE RECORDS SUMMARY | 2024-07-20 16:12 | XMS_ITS | Patient Health Record ---
Author Organization [facility] Address [address] [place] [address] Care Team Providers Care Seam Presser Name Role Phone Denys Christianson MD Primary Care Provider Karma Mitchell Unavailable [phone] ALLERGIES No Known Allergies REASON FOR REFERRAL Referring Provider First Name Denys Referring Provider Last Name Sammy Referring Provider Speciality Internal M edicine Referred Organization [facility] Referred Provider Karma Casper Referred Address [address] [facility],[place], [place],[address], Referred Provider Specialty Gastroentero logy Referral Priority [...] malignant neoplasm of colon (Z12.11) Active confirmed 993228118 Problem History of adenomatous polyp of colon (Z86.010) Active confirmed 220212840 Problem Personal history of colonic polyps (Z86.010) Active confirmed History of poly p of colon (situation) (567084393) Problem Diverticulosis of large intestine without perforation or abscess without bleeding (K57.30) Active confirmed Diverticul ar disease of colon (385712584) Problem Preprocedural examination (Z01.818) Active confirmed 142861387720011 VITAL SIGNS Blood pressure diastolic 00 mm Hg 09/26/2023 Height 67.5 in 09/26/2023 Blood pressure systolic 00 mm Hg 09/26/2023 Weight 216 lbs 09/26/2023 BMI 33.33 kg/m2 09/26/2023 Encounters Encounter Location Date Provider Diagnosis [facility] Out[facility] [address] [place], [place] [phone] 02/24/2024 Karma Casper Encounter for screen ing colonoscopy Z12.11 ; Personal history of colonic polyps Z86.010 ; Diverticulosis of large intestine without perforation or abscess without bleeding K57.30 and Other hemorrhoids K64.8 [facility] [address] [place] [address] 09/26/2023 Karma Casper History of adenomato us [...] Insured Coverage Start Date Coverage End Date [facility] [employer] CLAIM[employer] [address] [place] [address] [id number] KARMA NULL Self - patient is the insured MEDICAL (GENERAL) HISTORY Medical History History ICD Code Denies OR,DM,CVA,Lung disease,renal dise ase Anxiety He had a [...]
--- OUTSIDE RECORDS SUMMARY | 2024-07-20 16:12 | XMS_ITS | Patient Health Record ---
Author Organization Denys Christianson MD Address [address] [place], [place] [phone] Care Team Providers Care Commercial Production Editor Name Role Phone Denys Christianson Primary Care Provider ALLERGIES Allergen (clinical drug ingredient) Drug/Non Drug Allergy documented on EMR Reaction Allergy Type Onset Date Status bees (uncoded) body swelling Allergy A ctive RESULTS Component Value Reference Range Notes Complete Blood Count Auto Di ff Reviewed date:04/30/2024 09:27:57 PM Interpretation: Performing Lab:[facility], [address] [place] [phone] Notes/Report: White Blood Count 6.6 4.8-10.8 X10*3/uL [...] NRBC Abs Auto 0.000 0.0-0.012 X10*3/uL Comprehensive [place]. Panel Fa st Reviewed date:04/30/2024 09:27:30 PM Interpretation: Performing Lab:[facility], [address] [place] [phone] Notes/Report: Sodium 141 135-145 mmol/L Potassium 4.6 3.3-5.1 mmol/L Chloride 107 96-108 mmol/L Carbon Dioxide 28 22-29 mmol/L Anion Gap 11 12-20 Blood Urea Nitrogen 17 9-16 mg/dL Creatinine 1.33 0.5-1.4 mg/dL Estimated Glomerular Filt Rate 54 NOTE: For -Citizen Of [place] individuals, multiply the result by 1.210. Chronic [...] Panel Reviewed date:04/29/2024 06:41:08 PM Interpretation: Performing Lab:[address] [address] Notes/Report: Triglycerides 163 <150 mg/dL Desirable Triglyceride: [...] (Free>4and<10) Reviewed date:04/29/2024 06:41:57 PM Interpretation: Performing Lab:[address] [phone] Notes/Report: PSA,Total (Free>4and<10) 0.25 0.00-4.00 ng/mL A [...] Random Reviewed date:04/29/2024 06:42:55 PM Interpretation: Performing Lab:[address] [place] [address] Notes/Report: Creatinine Urine 316.91 Microalbumin Urine 11.0 Microalbum/Creatinine Ratio Ur 3.4 <30 ug/mg cr Albumin/Creatinine Ratio Reference Ranges: Normal: < 30 ug/mg creatinine Microalbuminuria: 30 - 300 ug/mg creatinine Clinical Albuminuria: > 300 ug/mg creatinine Hemoglobin A1c Reviewed date:04/29/2024 06:41:49 PM Interpretation: Performing Lab:[address] [address] Notes/Report: Hemoglobin A1c % 5.6 <6.0 % [...] average glucose, using the formula of the I2L-[place] Average Glucose study (ADAG), Diabetes Care, Vol.31,#8, Feb. 2007 UA ClnCatch+Micro w/rflx Cul t Reviewed date:04/29/2024 06:51:27 PM Interpretation: Performing Lab:[address] [address] Notes/Report: Urine, Clean Catch Color Urine Yellow Appearance Urine Clear PH 5.5 5.0-9.0 Glucose Urine UA Negative Negative mg/dL Urine Blood Negative Negative Specific [place] - Urine 1.025 1.005-1.025 Urine Protein Negative [...] date:06/21/2024 11:47:30 AM Interpretation: Performing Lab: Notes/Report: [address] [address] XRay Report Signed Patient: Abdiel Null MR#: [id number] 53 : 1960 Acct:[id number] Age/Sex: 64 / M ADM Date: 06/21/24 Loc: HO.ED Attending Dr: Ordering Physician: Jose G Wong MD Date of Service: 06/21/24 Procedure(s): XR humerus RT Accession Number(s): [id number] cc: Denys Christianson MD; Jose G Wong [...] 06/21/24 1058 DD/ 0810 TD/TT: 06/21/24 0820 Shop Coordinator: NITZA XR elbow RT 2V Reviewed date:06/21/2024 11:47:14 AM Interpretation: Performing Lab: Notes/Report: [address] [address] XRay Report Signed Patient: Abdiel Null MR#: [id number] 53 : 1960 Acct:[id number] Age/Sex: 64 / M ADM Date: 06/21/24 Loc: HO.ED Attending Dr: Ordering Physician: Jose G Wong MD Date of Service: 06/21/24 Procedure(s): XR elbow RT 2V Accession Number(s): [id number] cc: Denys Christianson MD; Jose G Wong [...] by: Nathaniel Vargas MD 06/21/2024 10:58 AM [facility] Dictated By: Nathaniel Vargas MD Signed By: <Electronically signed by Nathaniel Vargas MD in OV> 06/21/24 1058 DD/ 08 TD/TT: 06/21/24 0820 Shop Coordinator: NITZA XR forearm RT 2V Reviewed date:06/21/2024 11:47:38 AM Interpretation: Performing Lab: Notes/Report: [address] [address] XRay Report Signed Patient: Abdiel Null MR#: [id number] 53 : 1960 Acct:[id number] Age/Sex: 64 / M ADM Date: 06/21/24 Loc: HO.ED Attending Dr: Ordering Physician: Kalli Norwood Date of Service: 06/21/24 Procedure(s): XR forearm RT 2V Accession Number(s): [id number] cc: Denys Christianson MD; Kalli Norwood EXAMINATION: [...] MD Signed By: <Electronically signed by Nathaniel Vragas MD in OV> 06/21/24 1058 DD/ 08 TD/TT: 06/21/24 0820 Shop Coordinator: NITZA MR elbow RT wo con Reviewed date:07/04/2024 04:02:43 PM Interpretation: Performing Lab: Notes/Report: [address] [address] Magnetic Resonance Report Signed Patient: Abdiel Null MR#: [id number] 53 : 1960 Acct:[id number] Age/Sex: 64 / M ADM Date: 07/04/24 Loc: HO.MRI Attending Dr: Priscilla Ho PA-C Ordering Physician: Priscilla Ho PA-C Date of Service: 07/04/24 Procedure(s): MR elbow RT wo con Accession Number(s): [id number] cc: Denys Christianson MD; Priscilla Ho PA-C [...] 07/04/24 1346 DD/ 1018 TD/TT: 07/04/24 1110 Shop Coordinator: GUANAKO REASON FOR REFERRAL No Information MEDICATIONS [...] Code Notes Problem Thrombocytopenia (D69.6) Active confirmed 548982622 Problem Abnormal results of liver function studies (R94.5) Active confirmed 519673567 Problem Tubular adenoma of colon (D12.6) Active confirmed 853802035 Problem Prediabetes (R73.09) Active confirmed 1718060 Problem History of smoking (Z87.898) Active confirmed 75895929082051704 Problem Food allergy (Z91.018) Active confirmed 366906008 Problem Meralgia paraesthetica, right (G57.11) Active confirmed Meralgia paresthetica (51430310) Problem Abnormal platelets (D69.1) Active confirmed Qualitative platelet disorder (451047727) Problem Anxiety attack (F41.0) Active confirmed 383094143 VITAL SIGNS Blood pressure diastolic 78 mm [...] Denys Christianson MD [address] [place] [id number] 05/15/2024 Denys Christianson Abnormal platelets D69.1 ; Annual physical exam Z00.00 ; Prediabetes R73.09 ; Colon cancer screening Z12.11 and Depression screening Z13.31 Denys Christianson MD [address] [place] [phone] 04/28/2024 Denys Christianson Blood tests for rout ine general physical examination Z00.00 ; Prediabetes R73.09 ; Thrombocytopenia D69.6 and Encounter for immunization Z23 Denys Christianson MD [address] [place] [phone] 06/22/2024 Denys Christianson ASSESSMENTS Encounter Date Diagnosis [...] Details Provider Name:Denys figueroa, 05/11/2025 08:00:00 AM, [address] [place] [address], [phone], Provider Name:Denys Claudio ier, 05/18/2025 08:30:00 AM, [address] [place] [address], [place] [address], [place], [place], [phone], Insurance Providers Payer Name Payer Address Payer Phone Subscriber Number Group Number Insured Name Patient Relationship to Insured Coverage Start Date Coverage End Date [employer] [address] [place], [place] [id number] [phone] [id number] Abdiel Null Self - patient is the insured MEDICAL (GENERAL) HISTORY Medical History History ICD Code Colonoscopy 12/25/[address] Casper, had colonoscopy 03/12/19 repeat in 5 years02/24/24 repeat 5y
--- OUTSIDE RECORDS SUMMARY | 2024-07-20 16:12 | XMS_ITS ---
Author Organization [facility] Address [address] [place] [address] Care Team Providers Care Disposal Operator Name Role Phone Denys Christianson MD Primary Care Provider UnaKarma Mcdermott Unavailable [phone] REASON FOR VISIT screening,hx polyps PROBLEMS Problem Type ICD Code Onset Dates Problem Status W/U Status Risk SNOMED Code Notes Problem Personal history of colonic polyps (Z86.010) Active confirmed History of polyp of colon (situation) (030610803) Problem Diverticulosis of large intestine without perforation or abscess without bleeding (K57.30) Active confirmed Diverticul ar disease of colon (620015877) Encounters Encounter Location Date Provider Diagnosis [facility] [address] [place] [phone] 02/24/2024 Karma Casper Encounter for scre ening [...]
== END 2024-07-20 15:15 | disposition home or self-care (01) ==
PROVIDERS: PCP Internal Medicine; Visit Provider Physician Assistant
DX: S46.311A Strain of muscle, fascia and tendon of triceps, right arm, initial encounter (principal)
CPT/HCPCS: 99024

== ENCOUNTER → 2024-07-20 13:46 | Outpatient (BNVA) | payer OTHER, SELFPAY | PROVIDERS: PCP Internal Medicine; Visit Provider Physician Assistant | DX: S46.311D Strain of muscle, fascia and tendon of triceps, right arm, subsequent encounter (principal) | CPT/HCPCS: 99212 ==

== ENCOUNTER 2024-07-27 13:43 | Outpatient (AMB) | payer OTHER, SELFPAY ==
--- NOTE | 2024-07-27 13:51 | MHC.OFFVIS ---
Intake Visit Reasons: PO RT tricep tendon repair 07/17/24 NE Intake Note: Abdiel is a 64 year old male who presents today for a post operative s/p RT triceps tendon repair, DOS 07/17/24 NE. Patient reports he is doing very good and is only taking pain medication as needed. He is here to have his sutures remove. Allergies bee pollen [bees] Allergy (Severe, Verified 07/27/24 13:54) Swelling Medication List - Last Reconciled 07/27/24 by Priscilla Ho PA-C acetaminophen 650 mg (2 x 325 mg) PO Q4-6H PRN 30 days celecoxib (Celebrex) 200 mg PO BID 30 days escitalopram oxalate 20 mg PO DAILY oxycodone 5 mg PO Q6H PRN 7 days HPI HPI PO RT tricep tendon repair 07/17/24 NE: Details: 64-year-old gentleman returns to the office today status post right triceps tendon repair on 07/17/[address] Faye. He states he is doing well he has minimal pain. He is scheduled to begin occupational therapy on 08/10. 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 No erythema no drainage. He is able to fully extend the elbow. I can passively range him to 45 degrees of flexion. No pain with supination pronation. Neurovascularly intact. Assessment & Plan Assessment & Plan (1) Rupture of right triceps tendon: Code(s): S46.311A - Strain of muscle, fascia and tendon of triceps, right arm, initial encounter Category: Medical Plan: Praneeth removed Steri-Strips applied. He will continue to wear the brace at all times except for hygiene. He will begin occupational therapy on 08/10 to increase his motion 10 degrees every week. No strengthening for another 4 weeks. He will see us back in [address] Faye, sooner if needed. He will remain out of work until then. Coding Level of Care Code Global (48252) Diagnoses Rupture of right triceps tendon S46.311A
--- OUTSIDE RECORDS SUMMARY | 2024-07-27 16:48 | XMS_ITS ---
Author Organization Denys Christianson MD Address [address] [place], [place] [phone] Care Team Providers Care Memorial Adviser Name Role Phone Denys Christianson Primary Care Provider [phone] ALLERGIES Allergen (clinical drug ingredient) Drug/Non Drug [...] Location Date Provider Diagnosis Denys Christianson MD [address] [place] [address] [place] [phone] 05/15/2024 Denys Christianson Abnormal platelets D69.1 ; [...] Reason: Provider Name:Denys figueroa, 05/11/2025 08:00:00 AM, [address] [place] [address], [address] [place] [address], [phone], Provider Name:Denys figueroa, 05/18/2025 08:30:00 AM, [address] [place] [address], [place] [address], [place], [place], [phone], Progress Notes * Examination Category Sub-Category Detail [...]
--- OUTSIDE RECORDS SUMMARY | 2024-07-27 16:48 | XMS_ITS ---
Author Organization Denys Christianson MD Address [address] [place], [place] [phone] Care Team Providers Care Contact Center Consultant Name Role Phone Denys Christianson Primary Care Provider [phone] RESULTS Component Value Reference Range Notes Complete Blood Count Auto Di ff Reviewed date:04/30/2024 09:27:57 PM Interpretation: Performing Lab:[facility], [address] [place] [phone] Notes/Report: White Blood Count 6.6 4.8-10.8 X10*3/uL [...] NRBC Abs Auto 0.000 0.0-0.012 X10*3/uL Comprehensive [place]. Panel Fa st Reviewed date:04/30/2024 09:27:30 PM Interpretation: Performing Lab:[facility], [address] [place] [phone] Notes/Report: Sodium 141 135-145 mmol/L Potassium 4.6 3.3-5.1 mmol/L Chloride 107 96-108 mmol/L Carbon Dioxide 28 22-29 mmol/L Anion Gap 11 12-20 Blood Urea Nitrogen 17 9-16 mg/dL Creatinine 1.33 0.5-1.4 mg/dL Estimated Glomerular Filt Rate 54 NOTE: For -Greek individuals, multiply the result by 1.210. Chronic [...] Panel Reviewed date:04/29/2024 06:41:08 PM Interpretation: Performing Lab:[facility], [address] [place] [phone] Notes/Report: Triglycerides 163 <150 mg/dL Desirable Triglyceride: [...] (Free>4and<10) Reviewed date:04/29/2024 06:41:57 PM Interpretation: Performing Lab:[facility], [address] [place] [phone] Notes/Report: PSA,Total (Free>4and<10) 0.25 0.00-4.00 ng/mL A [...] Random Reviewed date:04/29/2024 06:42:55 PM Interpretation: Performing Lab:[facility], [address] [place] [phone] Notes/Report: Creatinine Urine 316.91 Microalbumin Urine 11.0 Microalbum/Creatinine Ratio Ur 3.4 <30 ug/mg cr Albumin/Creatinine Ratio Reference Ranges: Normal: < 30 ug/mg creatinine Microalbuminuria: 30 - 300 ug/mg creatinine Clinical Albuminuria: > 300 ug/mg creatinine Hemoglobin A1c Reviewed date:04/29/2024 06:41:49 PM Interpretation: Performing Lab:[facility], [address] [place] [address] Notes/Report: Hemoglobin A1c % 5.6 <6.0 % [...] average glucose, using the formula of the K2N-Gngsl[place] Average Glucose study (ADAG), Diabetes Care, Vol.31,#8, Feb. 2007 UA ClnCatch+Micro w/rflx Cul t Reviewed date:04/29/2024 06:51:27 PM Interpretation: Performing Lab:[facility], [address] [place] [phone] Notes/Report: Urine, Clean Catch Color Urine Yellow Appearance Urine Clear PH 5.5 5.0-9.0 Glucose Urine UA Negative Negative mg/dL Urine Blood Negative Negative Specific [place] - Urine 1.025 1.005-1.025 Urine Protein Negative [...] Date Provider Diagnosis Denys Christianson MD [address] [place], [place] [phone] 04/28/2024 Denys Christianson Blood tests for rout [...] Details Provider Name:Denys figueroa, 05/11/2025 08:00:00 AM, [address] [place] [address], [address], [phone], Provider Name:Denys figueroa, 05/18/2025 08:30:00 AM, [address] [place] [address], [place] [address], [place], [place], [phone],
--- OUTSIDE RECORDS SUMMARY | 2024-07-27 16:48 | XMS_ITS ---
Author Organization eDnys Christianson MD Address [address] [place] [phone] Care Team Providers Care Loader Helper Sorting Yard Name Role Phone Denys Christianson Primary Care Provider REASON FOR VISIT ER Encounters Encounter Location Date Provider Diagnosis Denys Christianson MD [address] [facility] [address] [place] [phone] 06/22/2024 Denys Christianson PLAN OF TREATMENT Next Appt Details Provider Name:Denys Claudio iekhoi, 05/11/2025 08:00:00 AM, [address] [place] [address], [address], [phone], Provider Name:Denys Claudio ier, 05/18/2025 08:30:00 AM, [address] [place] [address], [place] [address], [place], [place], [phone],
--- OUTSIDE RECORDS SUMMARY | 2024-07-27 16:49 | XMS_ITS | Patient Health Record ---
Author Organization Denys Christianson MD Address [address] [place], [place] [id number] Care Team Providers Care Net Wpf Developer Name Role Phone Denys Christianson Primary Care Provider [phone] ALLERGIES Allergen (clinical drug ingredient) Drug/Non Drug Allergy documented on EMR Reaction Allergy Type Onset Date Status bees (uncoded) body swelling Allergy A ctive RESULTS Component Value Reference Range Notes Complete Blood Count Auto Di ff Reviewed date:04/30/2024 09:27:57 PM Interpretation: Performing Lab:[facility], [address] [place] [phone] Notes/Report: White Blood Count 6.6 4.8-10.8 X10*3/uL [...] NRBC Abs Auto 0.000 0.0-0.012 X10*3/uL Comprehensive [place]. Panel Fa st Reviewed date:04/30/2024 09:27:30 PM Interpretation: Performing Lab:[facility], [address] [place] [phone] Notes/Report: Sodium 141 135-145 mmol/L Potassium 4.6 3.3-5.1 mmol/L Chloride 107 96-108 mmol/L Carbon Dioxide 28 22-29 mmol/L Anion Gap 11 12-20 Blood Urea Nitrogen 17 9-16 mg/dL Creatinine 1.33 0.5-1.4 mg/dL Estimated Glomerular Filt Rate 54 NOTE: For -Afghan individuals, multiply the result by 1.210. Chronic [...] Panel Reviewed date:04/29/2024 06:41:08 PM Interpretation: Performing Lab:[address] [address] Notes/Report: Triglycerides 163 <150 mg/dL Desirable Triglyceride: [...] (Free>4and<10) Reviewed date:04/29/2024 06:41:57 PM Interpretation: Performing Lab:[address] [address] Notes/Report: PSA,Total (Free>4and<10) 0.25 0.00-4.00 ng/mL A [...] Random Reviewed date:04/29/2024 06:42:55 PM Interpretation: Performing Lab:[address] [place] [address] Notes/Report: Creatinine Urine 316.91 Microalbumin Urine 11.0 Microalbum/Creatinine Ratio Ur 3.4 <30 ug/mg cr Albumin/Creatinine Ratio Reference Ranges: Normal: < 30 ug/mg creatinine Microalbuminuria: 30 - 300 ug/mg creatinine Clinical Albuminuria: > 300 ug/mg creatinine Hemoglobin A1c Reviewed date:04/29/2024 06:41:49 PM Interpretation: Performing Lab:[address] [address] Notes/Report: Hemoglobin A1c % 5.6 <6.0 % [...] average glucose, using the formula of the O7C-Ejwcuou Average Glucose study (ADAG), Diabetes Care, Vol.31,#8, Feb. 2007 UA ClnCatch+Micro w/rflx Cul t Reviewed date:04/29/2024 06:51:27 PM Interpretation: Performing Lab:[address] [address] Notes/Report: Urine, Clean Catch Color Urine Yellow Appearance Urine Clear PH 5.5 5.0-9.0 Glucose Urine UA Negative Negative mg/dL Urine Blood Negative Negative Specific Fox - Urine 1.025 1.005-1.025 Urine Protein Negative [...] date:06/21/2024 11:47:30 AM Interpretation: Performing Lab: Notes/Report: [address] [address] XRay Report Signed Patient: Abdiel Null MR#: [id number] 53 : 1960 Acct:[id number] Age/Sex: 64 / M ADM Date: 06/21/24 Loc: HO.ED Attending Dr: Ordering Physician: Jose G Wong MD Date of Service: 06/21/24 Procedure(s): XR humerus RT Accession Number(s): [id number] cc: Denys Christianson MD; Jose G Wong [...] 06/21/2024 10:58 AM EST Dictated By: Nathaniel Vargsa MD Signed By: <Electronically signed by Nathaniel Vargas MD in OV> 06/21/24 1058 DD/ 0810 TD/TT: 06/21/24 0820 Contact Person: NITZA XR elbow RT 2V Reviewed date:06/21/2024 11:47:14 AM Interpretation: Performing Lab: Notes/Report: [address] [address] XRay Report Signed Patient: Abdiel Null MR#: [id number] 53 : 1960 Acct:[id number] Age/Sex: 64 / M ADM Date: 06/21/24 Loc: HO.ED Attending Dr: Ordering Physician: Jose G Wong MD Date of Service: 06/21/24 Procedure(s): XR elbow RT 2V Accession Number(s): [id number] cc: Denys Christianson MD; Jose G Wong [...] by: Nathaniel Vargas MD 06/21/2024 10:58 AM [facility] Dictated By: Nathaniel Vargas MD Signed By: <Electronically signed by Nathaniel Vargas MD in OV> 06/21/24 1058 DD/ 08 TD/TT: 06/21/24 0820 Contact Person: NITZA XR forearm RT 2V Reviewed date:06/21/2024 11:47:38 AM Interpretation: Performing Lab: Notes/Report: [address] [address] XRay Report Signed Patient: Abdiel Null MR#: [id number] [birth year] : 1960 Acct:[id number] Age/Sex: 64 / M ADM Date: 06/21/24 Loc: HO.ED Attending Dr: Ordering Physician: Kalli Norwood Date of Service: 06/21/24 Procedure(s): XR forearm RT 2V Accession Number(s): [id number] cc: Denys Christianson MD; Kalli Norwood EXAMINATION: [...] 06/21/24 1058 DD/ 08 TD/TT: 06/21/24 0820 Contact Person: NITZA MR elbow RT wo con Reviewed date:07/04/2024 04:02:43 PM Interpretation: Performing Lab: Notes/Report: [address] [address] Magnetic Resonance Report Signed Patient: Abdiel Null MR#: [id number] 53 : 1960 Acct:[id number] Age/Sex: 64 / M ADM Date: 07/04/24 Loc: HO.MRI Attending Dr: Priscilla Ho PA-C Ordering Physician: Priscilla Ho PA-C Date of Service: 07/04/24 Procedure(s): MR elbow RT wo con Accession Number(s): [id number] cc: Denys Christianson MD; Priscilla Ho PA-C [...] 07/04/24 1346 DD/ 1018 TD/TT: 07/04/24 1110 Contact Person: GUANAKO REASON FOR REFERRAL No Information MEDICATIONS [...] Code Notes Problem Thrombocytopenia (D69.6) Active confirmed 328667235 Problem Abnormal results of liver function studies (R94.5) Active confirmed 556315047 Problem Tubular adenoma of colon (D12.6) Active confirmed 615157912 Problem Prediabetes (R73.09) Active confirmed 8367872 Problem History of smoking (Z87.898) Active confirmed 52749531083151167 Problem Food allergy (Z91.018) Active confirmed 272363924 Problem Meralgia paraesthetica, right (G57.11) Active confirmed Meralgia paresthetica (90064027) Problem Abnormal platelets (D69.1) Active confirmed Qualitative platelet disorder (292845367) Problem Anxiety attack (F41.0) Active confirmed 157289012 VITAL SIGNS Blood pressure diastolic 78 mm [...] Denys Christianson MD [address] [place] [phone] 05/15/2024 Denys Christianson Abnormal platelets D69.1 ; Annual physical exam Z00.00 ; Prediabetes R73.09 ; Colon cancer screening Z12.11 and Depression screening Z13.31 Denys Christianson MD [address] [place] [phone] 04/28/2024 Denys Christianson Blood tests for rout ine general physical examination Z00.00 ; Prediabetes R73.09 ; Thrombocytopenia D69.6 and Encounter for immunization Z23 Denys Christianson MD [address] [place] [phone] 06/22/2024 Denys Christianson ASSESSMENTS Encounter Date Diagnosis [...] Details Provider Name:Denys figueroa, 05/11/2025 08:00:00 AM, [address] [place] [address], [phone], Provider Name:Denys Claudio ier, 05/18/2025 08:30:00 AM, [address] [place] [address], [place] [address], [place], [place], [phone], Insurance Providers Payer Name Payer Address Payer Phone Subscriber Number Group Number Insured Name Patient Relationship to Insured Coverage Start Date Coverage End Date [employer] [address] [place], [place] [id number] Abdiel Null Self - patient is the insured MEDICAL (GENERAL) HISTORY Medical History History ICD Code Colonoscopy 12/25/[address] Casper, had colonoscopy 03/12/19 repeat in 5 years02/24/24 repeat 5y
--- OUTSIDE RECORDS SUMMARY | 2024-07-27 16:49 | XMS_ITS ---
Author Organization [facility] Address [address] [place] [address] Care Team Providers Care General Service Technician Name Role Phone Denys Christianson MD Primary Care Provider UnaKarma Mcdermott Unavailable [phone] REASON FOR VISIT screening,hx polyps PROBLEMS Problem Type ICD Code Onset Dates Problem Status W/U Status Risk SNOMED Code Notes Problem Personal history of colonic polyps (Z86.010) Active confirmed History of polyp of colon (situation) (940601705) Problem Diverticulosis of large intestine without perforation or abscess without bleeding (K57.30) Active confirmed Diverticul ar disease of colon (613277632) Encounters Encounter Location Date Provider Diagnosis [facility] [place] [address] [place] [phone] 02/24/2024 Karma Casper Encounter for scre ening [...]
--- OUTSIDE RECORDS SUMMARY | 2024-07-27 16:49 | XMS_ITS ---
Author Organization [facility] Address [address] [place] [address] Care Team Providers Care Coding Team Lead Name Role Phone Denys Christianson MD Primary Care Provider Karma Mitchell Unavailable [phone] ALLERGIES No Known Allergies REASON FOR VISIT [...] 09/26/2023 Encounters Encounter Location Date Provider Diagnosis [facility] [address] [place] [phone] 09/26/2023 Karma Casper History of adenomato us [...]
--- OUTSIDE RECORDS SUMMARY | 2024-07-27 16:50 | XMS_ITS | Patient Health Record ---
Author Organization [facility] Address [address] [place] [address] Care Team Providers Care Smoking Tobacco Cutter Operator Name Role Phone Denys Christianson MD Primary Care Provider Karma Mitchell Unavailable [phone] ALLERGIES No Known Allergies REASON FOR REFERRAL Referring Provider First Name Denys Referring Provider Last Name Sammy Referring Provider Speciality Internal M edicine Referred Organization [facility] Referred Provider Karma Casper Referred Address [address] [facility],[place], [place],[address], Referred Provider Specialty Gastroentero logy Referral Priority [...] malignant neoplasm of colon (Z12.11) Active confirmed 960974719 Problem History of adenomatous polyp of colon (Z86.010) Active confirmed 703973922 Problem Personal history of colonic polyps (Z86.010) Active confirmed History of poly p of colon (situation) (845098517) Problem Diverticulosis of large intestine without perforation or abscess without bleeding (K57.30) Active confirmed Diverticul ar disease of colon (992332597) Problem Preprocedural examination (Z01.818) Active confirmed 766138376632025 VITAL SIGNS Blood pressure diastolic 00 mm Hg 09/26/2023 Height 67.5 in 09/26/2023 Blood pressure systolic 00 mm Hg 09/26/2023 Weight 216 lbs 09/26/2023 BMI 33.33 kg/m2 09/26/2023 Encounters Encounter Location Date Provider Diagnosis [facility] [place] [address] [place], [place] [phone] 02/24/2024 Karma Casper Encounter for screen ing colonoscopy Z12.11 ; Personal history of colonic polyps Z86.010 ; Diverticulosis of large intestine without perforation or abscess without bleeding K57.30 and Other hemorrhoids K64.8 [facility] [address] [place] [address] 09/26/2023 Karma Casper History of adenomato us [...] Insured Coverage Start Date Coverage End Date [facility] [employer] [address] [place] [address] [id number] KARMA NULL Self - patient is the insured MEDICAL (GENERAL) HISTORY Medical History History ICD Code Denies IA,DM,CVA,Lung disease,renal dise ase Anxiety He had a [...]
== END 2024-07-27 14:15 | disposition home or self-care (01) ==
PROVIDERS: PCP Internal Medicine; Visit Provider Physician Assistant
DX: S46.311A Strain of muscle, fascia and tendon of triceps, right arm, initial encounter (principal)
CPT/HCPCS: 99024

== ENCOUNTER → 2024-07-27 13:43 | Outpatient (BNVA) | payer OTHER, SELFPAY | PROVIDERS: PCP Internal Medicine; Visit Provider Physician Assistant | DX: S46.311D Strain of muscle, fascia and tendon of triceps, right arm, subsequent encounter (principal) | CPT/HCPCS: 99212 ==

== ENCOUNTER 2024-08-24 13:45 | Outpatient (AMB) | payer OTHER, SELFPAY ==
--- NOTE | 2024-08-24 13:49 | MHC.OFFVIS ---
Vital Signs 08/24/24 13:51 Height 5 ft 8 in Weight 215 lb BMI 32.7 Handedness Right Intake Visit Reasons: PO RT tricep tendon repair 07/17/24 NE Intake Note: Abdiel is a 64 year old right hand dominant male who presents today with his elbow brace and his for a post operative s/p RT triceps tendon repair, DOS 07/17/24 NE. Patient reports he is doing well with going to OT. He notices improvements with his movements. Allergies bee pollen [bees] Allergy (Severe, Verified 08/24/24 13:51) Swelling HPI HPI PO RT tricep tendon repair 07/17/24 NE: Details: 64-year-old male returns to the office today 6 weeks status post right triceps tendon repair on 07/17/[address] Faye. Continues to work with physical therapy to maintain his motion. He continues to remain out of work. 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 He is able to perform full range of motion without limitations. No pain with supination pronation. Neurovascularly intact. Assessment & Plan Assessment & Plan (1) Rupture of right triceps tendon: Code(s): S46.311A - Strain of muscle, fascia and tendon of triceps, right arm, initial encounter Category: Medical Plan: He will continue to work with occupational therapy to maintain his range of motion but also begin working on strength exercises for the right tricep. He can discontinue the use of the brace unless he is out of the house in an uncontrolled environment where he may have an injury. We will continue to remain out of work until his next appointment with me in 6 weeks, sooner if needed. Coding Level of Care Code Global (53122) Diagnoses Rupture of right triceps tendon S46.311A
[2024-08-24 13:51] VITALS: BMI 32.7
--- OUTSIDE RECORDS SUMMARY | 2024-08-24 14:52 | XMS_ITS ---
Author Organization Denys Christianson MD Address [address] [place], [place] [phone] Care Team Providers Care Senior Web Engineer Name Role Phone Denys Christianson Primary Care Provider [phone] Allergies Allergen (clinical drug ingredient) Drug/Non Drug [...] Location Date Provider Diagnosis Denys Christianson MD [address] [place] [address] [address] [place], [place] [phone] 05/15/2024 Denys Christianson Abnormal platelets D69.1 ; [...] Reason: Provider Name:Denys figueroa, 05/11/2025 08:00:00 AM, [address] [place] [address], [address] [place] [address], [phone], Provider Name:Denys figueroa, 05/18/2025 08:30:00 AM, [address] [place] [address], [facility] [address], [place], [place], [phone], Progress Notes * Abdiel NULL ADOB: 2 (64 yo M)Acc No.[id number]:05/15/2024 Progress Notes Patient:?Abdiel Null Provider:?Denys Christianson MD :1960???Age:64 Y???Sex:Male Jose e:05/15/2024 Address:[address] [place] [address] [facility] Subjective: * Chief Complaints: * ???Annual visit * HPI: ???Depression Screening:?PHQ-9?Little interest or pleasure in doing things?Not at all,?Feeling down, depressed, or hopeless?Not at all,?Trouble falling or staying asleep, or sleeping too much?Not at all,?Feeling tired or having little energy?Not at all,?Poor appetite or overeating?Not at all,?Feeling bad about yourself or that you are a failure, or have let yourself or your family down?Not at all,?Trouble concentrating on things, such as reading the newspaper or watching television?Not at all,?Moving or speaking so slowly that other people could have noticed; or the opposite, being so fidgety or restless that you have been moving around a lot more than usual?Not at all,?Thoughts that you would be better off or of hurting yourself in some way?Not at all,?Total Score?0.?Interpretation and Intervention?Depression Screening Findings?Negative,?Follow-Up for Depression?: review of PHQ-9 found negative result, no follow-up needed.?Communication Needs:?Communication Needs?Does the patient have a hearing impairment?No,?Does the patient have a vision impairment??Yes,?If yes, what is the vision impairment??Glasses,?Does the patient have a cognition impairment??No.?SDOH Questions:?SDOH Questions?In the past year have you been worried about losing housing??No,?In the past year have you or any family members you live with been unable to get any of the following when it was really needed? Check all that apply:?None.?Symptom(s):? patient is a 64 yo male here for annual visit with review of recent labs and follow up of chronic issues. * ROS:?General/Constitutional:?Change in appetite?denies.?Chills?denies.?Fever?denies.?Ophthalmologic:?Blurred vision?denies.?Discharge?denies.?Pain?denies.?ENT:?Decreased hearing?denies.?Sore throat?denies.?Swollen glands?denies.?Endocrine:?Cold intolerance?denies.?Excessive thirst?denies.?Heat intolerance?denies.?Weight loss?denies.?Respiratory:?Cough?denies.?Shortness of breath at rest?denies.?Shortness of breath with exertion?denies.?Wheezing?denies.?Cardiovascular:?Chest pain at rest?denies.?Chest pain with exertion?denies.?Irregular heartbeat?denies.?Shortness of breath?denies.?Gastrointestinal:?Abdominal pain?denies.?Change in bowel habits?denies.?Diarrhea?denies.?Nausea?denies.?Rectal bleeding?denies.?Vomiting?denies .?Genitourinary:?Blood in urine?denies.?Difficulty urinating?denies.?Frequent urination?denies.?Musculoskeletal:?Painful joints?denies.?Weakness?denies.?Skin:?Dry skin?denies.?Itching?denies.?Denies?Mole(s),? changes in moles, new moles or any lesions of concern.?Denies?Photosensitivity.?Rash?denies.?Neurologic:?Dizziness?denies.?Fainting?denies.?Headache?denies.? * Medical History:? * Surgical History:? * Hospitalization/Major Diagno stic Procedure:? * Family History:?Father: dece ased 74 yrs, lung cancer.?Mother: 74 yrs, brain cancer.?2 brother(s) , 5 sister(s) . .? sister brother dad alcohol and medication no mental illnss, Denies mental health father and sisiter alcolic, Denies mental health/substance abuse family history, No pertinent family medical history. * Social History:?Tobacco Use:?Tobacco Use/Smoking?Patient is a?former smoker,?How long has it been since you last smoked??5-10 years,?Additional Findings: Tobacco Non-User?Former smoker, currently using no form of tobacco.?Drugs/Alcohol:?Alcohol Screen?Did you have a drink containing alcohol in the past year??Yes,?How often did you have a drink containing alcohol in the past year??2 to 4 times a month (2 points),?How many drinks did you have on a typical day when you were drinking in the past year??1 or 2 drinks (0 point),?How often did you have 6 or more drinks on one occasion in the past year??Never (0 point),?Points?2,?Interpretation?Negative.?Miscellaneous:?Caffeine: yes, frequency:, 1-2 cups per day. Children: yes. no Community involvements. no Exercise. Housing: owning. Living with: spouse. Marital status: . Occupation: works full-time. Pets: dogs. no Travel outside of the [place]. * Medications:?TakingEscitalop gray Oxalate 20 MG Tablet TAKE 1 TABLET BY MOUTH EVERY DAY Medication List reviewed and reconciled with the patientTaking Escitalopram Oxalate 20 MG Tablet TAKE 1 TABLET BY MOUTH EVERY DAY Medication List reviewed and reconciled with the patient * Allergies:?bees: body silvanoi teresa[Allergies Verified] Objective: * Vitals:?Ht: 67.5, Wt:216, BM I:33.33, BP:142/78, Repeat BP:115/82 weight is up 7 pounds since 10-20-23. * ???Past Orders: ???Lab:Lipid Panel (Order Da te - 04/28/2024) (Collection Date - 04/28/2024) ? Value Reference Range ?Triglycerides 163 H <150 - mg/dL ?Cholesterol 204 H <200 - m g/dL ?LDL Cholesterol Calculated 123 H <100 - mg/dL ?HDL Cholesterol 49 >40 - mg/dL ???Lab:PSA,Total (Free>4and< 10) (Order Date - 04/28/2024) (Collection Date - 04/28/2024) ? Value Reference Range ?PSA,Total (Free>4and<10) 0.25 0.00-4.00 - ng/mL ???Lab:Microalbumin, Random (Order Date - 04/28/2024) (Collection Date - 04/28/2024) ? Value Reference Range ?Creatinine Urine 316.91 - m g/dL ?Microalbumin Urine 11.0 - mg/L ?Microalbum Creatinine Ratio Ur 3.4 <30 - ug/mg cr ???Lab:Hemoglobin A1c (Order Date - 04/28/2024) (Collection Date - 04/28/2024) ? Value Reference Range ?Hemoglobin A1c % 5.6 <6. 0 - % ?Estimated Average Glucose 114 - mg/dL ???Lab:UA ClnCatch+Micro w/r flx Cult (Order Date - 04/28/2024) (Collection Date - 04/28/2024) ? Value Reference Range ?Color Urine Yellow - ?Appearance Urine Clear - ?PH 5.5 5.0-9.0 - ?Glucose Urine UA Negative Neg ative - mg/dL ?Urine Blood Negative Negative - ?Specific [place] - Urine 1.025 1.005-1.025 - ?Urine Protein Negative Neg-Tr margarito - mg/dL ?Urine Ketones Negative Negati ve - mg/dL ?Nitrite Urine Negative Negati ve - ?Leukocyte Esterase Urine Negative Negative - ?RBC Urine 0-2 0-2 - /HPF ?WBC Urine 0-5 0-5 - /HPF ?Squamous Epithelial Cell Urine 0-2 0-2 - /HPF ?Bacteria Urine None Seen None Seen - ?Hyaline Casts Urine 0-2 0-2 - /LPF * Examination: ???General Examination: ?GENERAL APPEARANCE:?well developed, well nourished, in no acute distress.?HEAD:?normocephalic, atraumatic.?EYES:?pupils equal, round, reactive to light and accommodation, sclera non-icteric.?EARS:?normal.?ORAL CAVITY:?mucosa moist.?THROAT:?clear.?NECK/THYROID:?neck supple, full range of motion, no cervical lymphadenopathy, no bruits.?SKIN:?warm and dry, no suspicious lesions.?HEART:?regular rate and rhythm, S1, S2 normal, no murmurs.?LUNGS:?clear to auscultation bilaterally.?ABDOMEN:?soft, nontender, nondistended, bowel sounds present, normal, no organomegaly , no masses palpable.?RECTAL EXAM:?normal tone, no external hemorrhoids, no masses palpable, prostate normal, stool guaiac negative.?MALE GENITOURINARY:?uncircumcised , no testicular mass , testes descended bilaterally.?EXTREMITIES:?no clubbing, cyanosis, or edema.?NEUROLOGIC:?nonfocal, motor strength normal upper and lower extremities, sensory exam intact.? Assessment: * Assessment: 1.?Annual physical exam - Z0 0.00 (Primary)?2.?Abnormal platelets - D69.1?3.?Prediabetes - R73.09?4.?Colon cancer screening - Z12.11?5.?Depression screening - Z13.31? Plan: * Treatment: 2.?Abnormal platelets? Notes: has resolved?? 3.?Prediabetes? Notes: have advised to get back on diet and stop drinking?? 4.?Colon cancer screening?LAB: Occult Blood, Stool, Guaiac?Negative ? Value Reference Range ?Occult Blood, Stool, Guaiac Neg Notes: guaiac negative??5.?Depression screening? Notes: negative screen?? * Procedure Codes:?43780 TEST FOR BLOOD, FECES * Preventive Medicine:? ??Counseling:?Care goal follow-up plan:?Counseling for abnormal BMI provided?Yes,?Above Normal BMI Follow-up?Giving encouragement to exercise.? * Follow Up:?1 Year * * Sign off status: Completed true * Provider:?Denys Christianson MD Date:?1 07/15/2023 Generated for Shlomo cabrales/Kristen/eTkatyasmitting on:?08/24/2024 02:52 PM EST History and Physical Notes * [...]
--- OUTSIDE RECORDS SUMMARY | 2024-08-24 14:52 | XMS_ITS | Patient Health Record ---
Author Organization [facility] Address [address] [place] [address] Care Team Providers Care Optometry Doctor Name Role Phone Denys Christianson MD Primary Care Provider Karma Mitchell Unavailable [phone] ALLERGIES No Known Allergies REASON FOR REFERRAL Referring Provider First Name Denys Referring Provider Last Name Sammy Referring Provider Speciality Internal M edicine Referred Organization [facility] Referred Provider Karma Casper Referred Address [address] [facility] [facility],[place], [place],[address], Referred Provider Specialty Gastroentero logy Referral Priority [...] malignant neoplasm of colon (Z12.11) Active confirmed 918868228 Problem History of adenomatous polyp of colon (Z86.010) Active confirmed 575387899 Problem Personal history of colonic polyps (Z86.010) Active confirmed History of poly p of colon (situation) (965835246) Problem Diverticulosis of large intestine without perforation or abscess without bleeding (K57.30) Active confirmed Diverticul ar disease of colon (586682604) Problem Preprocedural examination (Z01.818) Active confirmed [id number] VITAL SIGNS Blood pressure diastolic 00 mm Hg 09/26/2023 Height 67.5 in 09/26/2023 Blood pressure systolic 00 mm Hg 09/26/2023 Weight 216 lbs 09/26/2023 BMI 33.33 kg/m2 09/26/2023 Encounters Encounter Location Date Provider Diagnosis [facility] Out[address] [place], [place] [phone] 02/24/2024 Karma Casper Encounter for screen ing colonoscopy Z12.11 ; Personal history of colonic polyps Z86.010 ; Diverticulosis of large intestine without perforation or abscess without bleeding K57.30 and Other hemorrhoids K64.8 [facility] [address] [place] [address] 09/26/2023 Karma Casper History of adenomato us [...] Insured Coverage Start Date Coverage End Date [facility] [employer] CLAIM[employer] [address] [place] [address] [id number] KARMA NULL Self - patient is the insured MEDICAL (GENERAL) HISTORY Medical History History ICD Code Denies PR,DM,CVA,Lung disease,renal dise ase Anxiety He had a [...]
--- OUTSIDE RECORDS SUMMARY | 2024-08-24 14:52 | XMS_ITS ---
Author Organization [facility] Address [address] [place] [address] Care Team Providers Care Physical Science Aide Name Role Phone Denys Christianson MD Primary Care Provider UnaKarma Mcdermott Unavailable [phone] REASON FOR VISIT screening,hx polyps PROBLEMS Problem Type ICD Code Onset Dates Problem Status W/U Status Risk SNOMED Code Notes Problem Personal history of colonic polyps (Z86.010) Active confirmed History of polyp of colon (situation) (133244157) Problem Diverticulosis of large intestine without perforation or abscess without bleeding (K57.30) Active confirmed Diverticul ar disease of colon (880692080) Encounters Encounter Location Date Provider Diagnosis [facility] Outpatient [address] [place] [phone] 02/24/2024 Karma Casper Encounter for scre ening [...]
--- OUTSIDE RECORDS SUMMARY | 2024-08-24 14:52 | XMS_ITS ---
Author Organization Denys Christianson MD Address [address] [place], [place] [phone] Care Team Providers Care Laborer Pullet Farm Name Role Phone Denys Christianson Primary Care Provider Results Component Value Reference Range Notes Complete Blood Count Auto Di ff Reviewed date:04/30/2024 09:27:57 PM Interpretation: Performing Lab:[facility], [address] [place] [phone] Notes/Report: White Blood Count 6.6 4.8-10.8 X10*3/uL [...] NRBC Abs Auto 0.000 0.0-0.012 X10*3/uL Comprehensive [place]. Panel Fa st Reviewed date:04/30/2024 09:27:30 PM Interpretation: Performing Lab:[facility], [address] [place] [phone] Notes/Report: Sodium 141 135-145 mmol/L Potassium 4.6 3.3-5.1 mmol/L Chloride 107 96-108 mmol/L Carbon Dioxide 28 22-29 mmol/L Anion Gap 11 12-20 Blood Urea Nitrogen 17 9-16 mg/dL Creatinine 1.33 0.5-1.4 mg/dL Estimated Glomerular Filt Rate 54 NOTE: For -Citizen Of [place] individuals, multiply the result by 1.210. Chronic [...] Panel Reviewed date:04/29/2024 06:41:08 PM Interpretation: Performing Lab:[facility], [address] [place] [phone] Notes/Report: Triglycerides 163 <150 mg/dL Desirable Triglyceride: [...] (Free>4and<10) Reviewed date:04/29/2024 06:41:57 PM Interpretation: Performing Lab:[facility], [address] [place] [phone] Notes/Report: PSA,Total (Free>4and<10) 0.25 0.00-4.00 ng/mL A [...] Random Reviewed date:04/29/2024 06:42:55 PM Interpretation: Performing Lab:[facility], [address] [place] [phone] Notes/Report: Creatinine Urine 316.91 Microalbumin Urine 11.0 Microalbum/Creatinine Ratio Ur 3.4 <30 ug/mg cr Albumin/Creatinine Ratio Reference Ranges: Normal: < 30 ug/mg creatinine Microalbuminuria: 30 - 300 ug/mg creatinine Clinical Albuminuria: > 300 ug/mg creatinine Hemoglobin A1c Reviewed date:04/29/2024 06:41:49 PM Interpretation: Performing Lab:[facility], [address] [place] [phone] Notes/Report: Hemoglobin A1c % 5.6 <6.0 % [...] average glucose, using the formula of the N2K-Remjumc Average Glucose study (ADAG), Diabetes Care, Vol.31,#8, Feb. 2007 UA ClnCatch+Micro w/rflx Cul t Reviewed date:04/29/2024 06:51:27 PM Interpretation: Performing Lab:[facility], [address] [place] [phone] Notes/Report: Urine, Clean Catch Color Urine Yellow Appearance Urine Clear PH 5.5 5.0-9.0 Glucose Urine UA Negative Negative mg/dL Urine Blood Negative Negative Specific [place] - Urine 1.025 1.005-1.025 Urine Protein Negative [...] Date Provider Diagnosis Denys Christianson MD [address] [place], [place] [phone] 04/28/2024 Denys Christianson Blood tests for rout [...] Provider Name:Denys Claudio ier, 05/11/2025 08:00:00 AM, [address] [facility], [address], [place], [place], [phone], Provider Name:Denys Claudio ier, 05/18/2025 08:30:00 AM, [address] [facility], [address], [place], [place], [phone], Progress Notes * Abdiel NULL ADOB: 2 (64 yo M)Acc No.[id number]:04/28/2024 Progress Note Patient:?Abdiel Null Provider:?Denys Christianson MD :1960???Age:64 Y???Sex:Male Jose e:04/28/2024 Address:[address] [place], [place] [phone] Subjective: * Chief Complaints: * ???Yearly fasting labs * Medical History:? * Surgical History:? * Hospitalization/Major Diagno stic Procedure:? * Medications:? Objective: Assessment: * Assessment: 1.?Blood tests for routine g eneral physical examination - Z00.00 (Primary)?2.?Prediabetes - R73.09?3.?Thrombocytopenia - D69.6?4.?Encounter for immunization - Z23? Plan: * Treatment: 2.?Prediabetes?LAB: Complete Blood Count Auto Diff ?LAB: Comprehensive [place]. Panel Fast ?LAB: Lipid Panel ?LAB: PSA,Total (Free>4and<10) ?LAB: Microalbumin, Random ?LAB: Hemoglobin A1c ?LAB: UA ClnCatch+Micro w/rflx Cult 3.?Thrombocytopenia?LAB: Complete Blood Count Auto Diff ?LAB: Comprehensive [place]. Panel Fast ?LAB: Lipid Panel ?LAB: PSA,Total (Free>4and<10) ?LAB: Microalbumin, Random ?LAB: Hemoglobin A1c ?LAB: UA ClnCatch+Micro w/rflx Cult * Immunizations:? Fluarix Quadrivalent - 150 : 0.5 mL (Dose No:1) (Route: Intramuscular) given by Georgina Holt on Left Deltoid * Procedure Codes:?43185 VENIP UNCT, ROUTINE*03393 FLU VACCINE NO PRESERV 3 & >96034 IMMUNIZATION ADMIN * * Sign off status: Completed true * Provider:?Denys Christianson MD Date:?1 Generated for Shlomo cabrales/Kristen/eTransmitting on:?08/24/2024 02:51 PM EST
--- OUTSIDE RECORDS SUMMARY | 2024-08-24 14:52 | XMS_ITS ---
Author Organization [facility] Address [address] [place] [phone] Care Team Providers Care Psychiatric Aide Name Role Phone Denys Christianson MD Primary Care Provider Karma Mitchell Unavailable [phone] ALLERGIES No Known Allergies REASON FOR VISIT [...] 09/26/2023 Encounters Encounter Location Date Provider Diagnosis [facility] [address] [place] [phone] 09/26/2023 Karma Casper History of adenomato us [...]
--- OUTSIDE RECORDS SUMMARY | 2024-08-24 14:53 | XMS_ITS ---
Author Organization Denys Chrisitanson MD Address [address] [place] [phone] Care Team Providers Care Layboy Operator Name Role Phone Denys Christianson Primary Care Provider REASON FOR VISIT ER Encounters Encounter Location Date Provider Diagnosis Denys Christianson MD [address] [facility] [address] [place] [phone] 06/22/2024 Denys Christianson Plan Of Treatment Next Appt Details Provider Name:Denys figueroa, 05/11/2025 08:00:00 AM, [address] [place] [address], [address], [phone], Provider Name:Denys Claudio ier, 05/18/2025 08:30:00 AM, [address] [place] [address], [address], [phone], Progress Notes * Abdiel NULL ADOB: 2 (64 yo M)Acc No.[id number]:06/22/2024 Patient:?Abdiel Null :1960???Age:64 Y???Sex:Male [place]: [place] [address] * true * Date:? Generated for Shlomo cabrales/Kristen/Jayson on:?08/24/2024 02:52 PM EST
== END 2024-08-24 14:33 | disposition home or self-care (01) ==
PROVIDERS: PCP Internal Medicine; Visit Provider Physician Assistant
DX: S46.311A Strain of muscle, fascia and tendon of triceps, right arm, initial encounter (principal)
CPT/HCPCS: 99024

== ENCOUNTER → 2024-08-24 13:45 | Outpatient (BNVA) | payer OTHER, SELFPAY | PROVIDERS: PCP Internal Medicine; Visit Provider Physician Assistant | DX: S46.311D Strain of muscle, fascia and tendon of triceps, right arm, subsequent encounter (principal); X58.XXXD Exposure to other specified factors, subsequent encounter; Z98.890 Other specified postprocedural states | CPT/HCPCS: 99212 ==

== ENCOUNTER 2024-09-24 14:05 | Outpatient (RCR) | payer OTHER, BC, SELFPAY ==
--- NOTE | 2024-08-10 16:11 | MHC.OT.EP ---
[address] [phone] Occupational Therapy Plan of Care Patient Name: Abdiel Mcfadden Date of Evaluation: 08/10/24 Diagnosis: dital triceps tendon repair Pain Location: distal triceps ; mostly 2/10 pain at worse 4/10 pain Pain Score: 4 Pain Scale Used: Numeric (0 - 10) Aggravating Factors: sudden movements Alleviating Factors: cryotherapy Assessment: Pt is a 63 yr. old R hand dominant male who had surgery on 09/19 to repair his R distal triceps tendon which he injured when falling on the ice collecting water samples. He went [facility] [place] [facility] and then had a follow up w/ Dr. Faye who performed the surgery on 07/17. Pt had a follow up 2 weeks post op to remove stitches. The PA reports full elbow extension and 25 elbow flexion. He is to remain in the brace and increase 10 of elbow flexion weekly. Pt presents w/ full elbow extension today, 90 of elbow flexion (no pain/ pressure), and sup/pro WFL. He would benefit from skilled OT therapy to increase ROM, strength, and the functional use of his R UE to RPLOF, and RTW safely w/out restrictions. Frequency and Duration: The patient will be seen 2xs a week for 8 weeks Short Term Goals: Pt will be complaint w/ HEP Pt will report 1/10 pain w/ activity Pt will have 130 elbow flexion pain free Pt will be able to strengthen 4 weeks post op Care Home Goals: Pt will report the ability to use his R hand to hold/ carry light grocery bags w/ out difficulty. Pt will RTW w/ out restrictions Pt will report 0/10 pain w/ activity Treatment Plan: Therapeutic Exercise Therapeutic Activity Home Exercise Program Splinting Neuro Re-ed Patient Education Desensitization/Sensory Re-ed Edema Control ADL Training Ultrasound NMES Iontophoresis Paraffin Fluidotherapy MHP Cold Packs Joint Mobilization Soft Tissue Mobilization Kinesiotaping Other (see comments) Electronically Signed By: Vandana Tamayo OTR/L Please Sign and return to therapist. Thank you once again for your referral.
== END 2024-09-24 14:20 | disposition home or self-care (01) ==
LOC: HO.OT 14:05
PROVIDERS: PCP Internal Medicine; Visit Provider Physician Assistant
DX: S46.311D Strain of muscle, fascia and tendon of triceps, right arm, subsequent encounter (principal)
CPT/HCPCS: 97110; 97140; 97166; 97535

== ENCOUNTER 2024-10-05 13:45 | Outpatient (AMB) | payer OTHER, SELFPAY ==
--- NOTE | 2024-10-05 13:51 | MHC.OFFVIS ---
Vital Signs 10/05/24 13:54 Height 5 ft 8 in Weight 215 lb BMI 32.7 Intake Visit Reasons: PO RT tricep tendon repair 07/17/24 NE Intake Note: Abdiel is a 64 year old male who presents today for a post operative RT triceps tendon repair, DOS 07/17/24 NE. At his last visit he was instructed to d/c use of brace unless he is out of the house in an uncontrolled environment where he may have an injury. He will continue to work with OT to maintain his range of motion but also begin working on strength exercises for the right tricep. He will remain out of work until his next appointment in 6 weeks. Patient reports that he has completed PT. He states having a stabbing pain in his thumb after light garden work and upon grabbing a glass cup. He has a mild discomfort at night. Allergies bee pollen [bees] Allergy (Severe, Verified 10/05/24 13:54) Swelling Medication List - Last Reconciled 10/05/24 by Priscilla Ho PA-C escitalopram oxalate 20 mg PO DAILY HPI HPI PO RT tricep tendon repair 07/17/24 NE: Details: 64-year-old gentleman presents to the office today 6 weeks status post right triceps tendon repair on 07/17/[address] Faye. He states he is doing well however he was working in the yd and he felt some discomfort in the right thumb. He denies numbness or tingling. He denies worsening pain in the tricep region. Has remained out of work since the time of injury. [facility] Medical History History of Mohs micrographic surgery for skin cancer Skin cancer, basal cell Fatty liver Anxiety Surgical History Hx of bilateral cataract extraction Hx of left inguinal hernia repair H/O colonoscopy Social History Household Members: Spouse Are you a primary patient care technician instructor to a significant other at home: No Do you presently have visiting nurse or other home services: No Alcohol intake: current Alcohol intake frequency: a few times a month Patient Tobacco Use Status: Former Tobacco user Tobacco use type: Cigarette Years Smoked: 9 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 He is able to perform full range of motion without limitations. No pain with supination pronation. No discomfort with activation of the triceps muscle. Neurovascularly intact. Assessment & Plan Assessment & Plan (1) Rupture of right triceps tendon: Code(s): S46.311A - Strain of muscle, fascia and tendon of triceps, right arm, initial encounter Category: Medical Plan: Patient will continue to work with physical therapy/occupational therapy to improve his strength training to obtain full capacity to return to work. At this time he can return to work on 10/12 with no lifting pushing pulling or carrying greater than 15 lb. I would like to see him back in 6 weeks for re-evaluation, sooner if needed. Orders: Orders OT Evaluation and Treatment Today S46.311A - Strain of muscle, fascia and tendon of triceps, right arm, initial encounter PT Evaluation and Treatment Today S46.311A - Strain of muscle, fascia and tendon of triceps, right arm, initial encounter Coding Level of Care Code Global (72507) Diagnoses Rupture of right triceps tendon S46.311A
[2024-10-05 13:54] VITALS: BMI 32.7
== END 2024-10-05 14:59 | disposition home or self-care (01) ==
LOC: HO.HOS 13:45
PROVIDERS: PCP Internal Medicine; Visit Provider Physician Assistant
DX: S46.311A Strain of muscle, fascia and tendon of triceps, right arm, initial encounter (principal)
CPT/HCPCS: 99024

== ENCOUNTER → 2024-10-05 13:45 | Outpatient (BNVA) | payer OTHER, SELFPAY | PROVIDERS: PCP Internal Medicine; Visit Provider Physician Assistant | DX: M79.644 Pain in right finger(s) (principal); S46.311D Strain of muscle, fascia and tendon of triceps, right arm, subsequent encounter; X58.XXXD Exposure to other specified factors, subsequent encounter; Z98.890 Other specified postprocedural states | CPT/HCPCS: 99212 ==

== ENCOUNTER 2024-10-21 07:46 | Outpatient (RCR) | payer OTHER, BC, SELFPAY ==
--- NOTE | 2024-10-21 14:20 | MHC.PT.EP ---
[facility] [place] Office [place] Office [place] Office [address] Cinthia Brooks [address] [phone] F: [phone] F: [phone] F: [phone] F: [phone] Physical Therapy Plan of Care Date of Evaluation: 10/21/24 Date of Surgery: 07/17/24 Diagnosis: RUPTURE R TRICEPS TENDON Assessment: Pt IS 64 YO M REFERRED TO PT FROM [facility] ([facility]) S/P R TRICEP TENDON TEAR SURGERY 07/17/24 AFTER FALL 06/21/25 WITH AVULSION FX. Pt HAD OT AND WAS DISCHARGED HAVING MET GOALS WITH ASSUMPTION OF RTW. Pt SAW ORTHO FOR FU AND WAS CLEARED FOR RTW (BUT HAD 15#RESTRICTION SO WASNT ABLE TO RETURN PER EMPLOYEE REPORTING HAS TO COME BACK WITHOUT RESTRICTION). THIS PT SPOKE TO OT WHO WORKED WITH Pt AND SHE REPORTS HE SEEMED GOOD FOR RTW WHEN LAST SEEN BY OT (09/16/24). 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 THOUGHT HE WAS GOING TO BE GOING BTW. HE FEELS HE IS READY TO RETURN TO WORK. THIS PT TIGERTEXTED RACQUEL TO ASK ABOUT RESTRICTION AND SHE SAID OK FOR IT TO BE LIFTED. RECOMMEND Pt STOP IN TO SEE ORTHO FOR RTW LETTER AND TO CONTACT EMPLOYER FOR JOB DESCRIPTION AND WILL HAVE 1 FU VISIT WITH PT TO ENSURE SMOOTH TRANSITION TO WORK/REV JOB DESCRIPTION AND ADD SOME RC/WRIST STRENGTHENING EXS TO HOME PROGRAM Frequency and Duration: The patient will be seen 1-2 SESSIONS Short Term Goals: 1. RTW WITHOUT SIGNIF ISSUE 2. I HEP Devops Architect Goals: Treatment Plan: Modalities to reduce pain, spasms and effusion. Manual therapy to restore motion and function. Therapeutic exercise to improve strength and flexibility. Neuromuscular re-education for posture and balance. Therapeutic activities to return to functional activities of daily living. Electronically signed by: MARISSA DE LA O PT Please sign and return to therapist. Thank you for your referral.
--- NOTE | 2024-12-16 09:27 | MHC.PT.DC ---
[facility] [place] [facility] [place] [facility] [place] [facility] [address] Cinthia Brooks [address] [phone] F: [phone] F: [phone] F: [phone] F: [phone] Physical Therapy Discharge Report Diagnosis: RUPTURE R TRICEPS TENDON Date of Surgery: 07/17/24 Date of Evaluation: 10/21/24 Date of Discharge: 12/16/24 Treatments to Date: 1 Cancellations to Date: No Shows to Date: Discharge Status: Patient Elected to Stop Discharge Summary: Pt SEEN FOR INITIAL EVAL AND THEN CANCELLED HIS NEXT APPT WITHOUT SCHEDULING MORE. PER CHART, SAW ORTHO 11/18 AND WAS TO RTW ON 12/12. PER ASSESSMENT AT INIT EVAL 'Pt IS 64 YO M REFERRED TO PT FROM ORTHO (WENDI) S/P R TRICEP TENDON TEAR SURGERY 07/17/24 AFTER FALL 06/21/25 WITH AVULSION FX. Pt HAD OT AND WAS DISCHARGED HAVING MET GOALS WITH ASSUMPTION OF RTW. Pt SAW ORTHO FOR FU AND WAS CLEARED FOR RTW (BUT HAD 15#RESTRICTION SO WASNT ABLE TO RETURN PER EMPLOYEE REPORTING HAS TO COME BACK WITHOUT RESTRICTION). THIS PT SPOKE TO OT WHO WORKED WITH Pt AND SHE REPORTS HE SEEMED GOOD FOR RTW WHEN LAST SEEN BY OT (09/16/24). 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 THOUGHT HE WAS GOING TO BE GOING BTW. HE FEELS HE IS READY TO RETURN TO WORK. THIS PT TIGERTEXTED RACQUEL TO ASK ABOUT RESTRICTION AND SHE SAID OK FOR IT TO BE LIFTED. RECOMMEND Pt STOP IN TO SEE ORTHO FOR RTW LETTER AND TO CONTACT EMPLOYER FOR JOB DESCRIPTION AND WILL HAVE 1 FU VISIT WITH PT TO ENSURE SMOOTH TRANSITION TO WORK/REV JOB DESCRIPTION AND ADD SOME RC/WRIST STRENGTHENING EXS TO HOME PROGRAM' Electronically signed by: MARISSA DE LA O PT Please sign and return to therapist. Thank you for your referral.
== END 2024-12-16 09:27 | disposition home or self-care (01) ==
LOC: HO.PT 07:46
PROVIDERS: PCP Internal Medicine; Visit Provider Physician Assistant
DX: S46.311A Strain of muscle, fascia and tendon of triceps, right arm, initial encounter (principal); X58.XXXA Exposure to other specified factors, initial encounter
CPT/HCPCS: 97110; 97161; 97535

== ENCOUNTER 2024-11-18 10:00 | Outpatient (AMB) | payer OTHER, SELFPAY ==
--- NOTE | 2024-11-18 10:06 | MHC.OFFVIS ---
Vital Signs 11/18/24 10:11 Height 5 ft 8 in Weight 215 lb BMI 32.7 Intake Visit Reasons: OV RT tricep tendon repair 07/17/24 NE Intake Note: Abdiel is a 64 year old male who presents today for a post operative RT triceps tendon repair, DOS 07/17/24 NE. At patients last visit he was instructed to continue working with PT/OT, he may return to work on 10/12. Patient reports some discomfort if he overdoes things but overall he is doing really well. Allergies bee pollen [bees] Allergy (Severe, Verified 11/18/24 10:07) Swelling Medication List - Last Reconciled 11/18/24 by Priscilla Ho PA-C escitalopram oxalate 20 mg PO DAILY HPI HPI OV RT tricep tendon repair 07/17/24 NE: Details: 64-year-old gentleman returns to the office today for a follow up visit right triceps tendon repair on 07/17/[address] Faye. He continues to do well and has returned to work without limitations. No concerns today. 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 He is able to perform full range of motion without limitations. No pain with supination pronation. No discomfort with activation of the triceps muscle. Neurovascularly intact. Assessment & Plan Assessment & Plan (1) Rupture of right triceps tendon: Code(s): S46.311A - Strain of muscle, fascia and tendon of triceps, right arm, initial encounter Category: Medical Plan: Patient is approximately 4 months out from a triceps tendon repair who is doing well without any complications. He will continue to increase activities as tolerated and if symptoms arise or there is any concerns he will contact our office otherwise he will follow up as needed. Coding Level of Care Code Est Pt Level 3 (36430) Complex EM visit Add On G2211 Diagnoses Rupture of right triceps tendon S46.311A
[2024-11-18 10:11] VITALS: BMI 32.7
--- OUTSIDE RECORDS SUMMARY | 2024-11-18 11:08 | XMS_ITS ---
Author Organization Denys Christianson MD Address [address] [place], [place] [phone] Care Team Providers Care Mussel Farmer Name Role Phone Denys Christianson Primary Care Provider Results Component Value Reference Range Notes Complete Blood Count Auto Di ff Reviewed date:04/30/2024 09:27:57 PM Interpretation: Performing Lab:[facility], [address] [place] [phone] Notes/Report: White Blood Count 6.6 4.8-10.8 X10*3/uL [...] NRBC Abs Auto 0.000 0.0-0.012 X10*3/uL Comprehensive [place]. Panel Fa st Reviewed date:04/30/2024 09:27:30 PM Interpretation: Performing Lab:[facility], [address] [place] [phone] Notes/Report: Sodium 141 135-145 mmol/L Potassium 4.6 3.3-5.1 mmol/L Chloride 107 96-108 mmol/L Carbon Dioxide 28 22-29 mmol/L Anion Gap 11 12-20 Blood Urea Nitrogen 17 9-16 mg/dL Creatinine 1.33 0.5-1.4 mg/dL Estimated Glomerular Filt Rate 54 NOTE: For -[place] individuals, multiply the result by 1.210. Chronic [...] Panel Reviewed date:04/29/2024 06:41:08 PM Interpretation: Performing Lab:[facility], [address] [place] [phone] Notes/Report: Triglycerides 163 <150 mg/dL Desirable Triglyceride: [...] (Free>4and<10) Reviewed date:04/29/2024 06:41:57 PM Interpretation: Performing Lab:[facility], [address] [place] [phone] Notes/Report: PSA,Total (Free>4and<10) 0.25 0.00-4.00 ng/mL A [...] Random Reviewed date:04/29/2024 06:42:55 PM Interpretation: Performing Lab:[facility], [address] [place] [phone] Notes/Report: Creatinine Urine 316.91 Microalbumin Urine 11.0 Microalbum/Creatinine Ratio Ur 3.4 <30 ug/mg cr Albumin/Creatinine Ratio Reference Ranges: Normal: < 30 ug/mg creatinine Microalbuminuria: 30 - 300 ug/mg creatinine Clinical Albuminuria: > 300 ug/mg creatinine Hemoglobin A1c Reviewed date:04/29/2024 06:41:49 PM Interpretation: Performing Lab:[facility], [address] [place] [address] Notes/Report: Hemoglobin A1c % 5.6 <6.0 % [...] average glucose, using the formula of the B0J-Dzedzkb Average Glucose study (ADAG), Diabetes Care, Vol.31,#8, Feb. 2007 UA ClnCatch+Micro w/rflx Cul t Reviewed date:04/29/2024 06:51:27 PM Interpretation: Performing Lab:[facility], [address] [place] [phone] Notes/Report: Urine, Clean Catch Color Urine Yellow Appearance Urine Clear PH 5.5 5.0-9.0 Glucose Urine UA Negative Negative mg/dL Urine Blood Negative Negative Specific [place] - Urine 1.025 1.005-1.025 Urine Protein Negative [...] Date Provider Diagnosis Denys Christianson MD [address] [place], [place] [phone] 04/28/2024 Denys Christianson Blood tests for rout [...] Name:Denys Claudio ier, 05/11/2025 08:00:00 AM, [address] [facility], [address], [place], [place], [phone], Provider Name:Denys Claudio ier, 05/18/2025 08:30:00 AM, [address] [facility], [address], [place], [place], [phone], Progress Notes * Abdiel NULL ADOB: [birth year] (64 yo M)Acc No.[id number]:04/28/2024 Progress Note Patient:?Abdiel Null Provider:?Denys Christianson MD :1960???Age:64 Y???Sex:Male Jose e:04/28/2024 Address:[address] [place], [place] [phone] Subjective: * Chief Complaints: * ???Yearly fasting labs * Medical History:? * Surgical History:? * Hospitalization/Major Diagno stic Procedure:? * Medications:? Objective: Assessment: * Assessment: 1.?Blood tests for routine g eneral physical examination - Z00.00 (Primary)?2.?Prediabetes - R73.09?3.?Thrombocytopenia - D69.6?4.?Encounter for immunization - Z23? Plan: * Treatment: 2.?Prediabetes?LAB: Complete Blood Count Auto Diff ?LAB: Comprehensive [place]. Panel Fast ?LAB: Lipid Panel ?LAB: PSA,Total (Free>4and<10) ?LAB: Microalbumin, Random ?LAB: Hemoglobin A1c ?LAB: UA ClnCatch+Micro w/rflx Cult 3.?Thrombocytopenia?LAB: Complete Blood Count Auto Diff ?LAB: Comprehensive [place]. Panel Fast ?LAB: Lipid Panel ?LAB: PSA,Total (Free>4and<10) ?LAB: Microalbumin, Random ?LAB: Hemoglobin A1c ?LAB: UA ClnCatch+Micro w/rflx Cult * Immunizations:? Fluarix Quadrivalent - 150 : 0.5 mL (Dose No:1) (Route: Intramuscular) given by Georgina Holt on Left Deltoid * Procedure Codes:?06822 VENIP UNCT, ROUTINE*45915 FLU VACCINE NO PRESERV 3 & >09230 IMMUNIZATION ADMIN * * Sign off status: Completed true * Provider:?Denys Christianson MD Date:?1 Generated for Shlomo cabrales/Kristen/eTransmitting on:?11/18/2024 11:08 AM EDT
--- OUTSIDE RECORDS SUMMARY | 2024-11-18 11:08 | XMS_ITS | Patient Health Record ---
Author Organization Denys Christianson MD Address [address] [place], [place] [phone] Care Team Providers Care Application Dba Name Role Phone Denys Christianson Primary Care Provider [phone] Allergies Allergen (clinical drug ingredient) Drug/Non Drug Allergy documented on EMR Reaction Allergy Type Onset Date Status bees (uncoded) body swelling Allergy A ctive Results Component Value Reference Range Notes Complete Blood Count Auto Di ff Reviewed date:04/30/2024 09:27:57 PM Interpretation: Performing Lab:[facility], [address] [place] [phone] Notes/Report: White Blood Count 6.6 4.8-10.8 X10*3/uL [...] NRBC Abs Auto 0.000 0.0-0.012 X10*3/uL Comprehensive [place]. Panel Fa st Reviewed date:04/30/2024 09:27:30 PM Interpretation: Performing Lab:[facility], [address] [place] [phone] Notes/Report: Sodium 141 135-145 mmol/L Potassium 4.6 3.3-5.1 mmol/L Chloride 107 96-108 mmol/L Carbon Dioxide 28 22-29 mmol/L Anion Gap 11 12-20 Blood Urea Nitrogen 17 9-16 mg/dL Creatinine 1.33 0.5-1.4 mg/dL Estimated Glomerular Filt Rate 54 NOTE: For -[place]inid[place] individuals, multiply the result by 1.210. Chronic [...] Panel Reviewed date:04/29/2024 06:41:08 PM Interpretation: Performing Lab:[address] [phone] Notes/Report: Triglycerides 163 <150 mg/dL Desirable Triglyceride: [...] (Free>4and<10) Reviewed date:04/29/2024 06:41:57 PM Interpretation: Performing Lab:[address] [phone] Notes/Report: PSA,Total (Free>4and<10) 0.25 0.00-4.00 ng/mL A [...] Random Reviewed date:04/29/2024 06:42:55 PM Interpretation: Performing Lab:[address] [place] [address] Notes/Report: Creatinine Urine 316.91 Microalbumin Urine 11.0 Microalbum/Creatinine Ratio Ur 3.4 <30 ug/mg cr Albumin/Creatinine Ratio Reference Ranges: Normal: < 30 ug/mg creatinine Microalbuminuria: 30 - 300 ug/mg creatinine Clinical Albuminuria: > 300 ug/mg creatinine Hemoglobin A1c Reviewed date:04/29/2024 06:41:49 PM Interpretation: Performing Lab:[address] [phone] Notes/Report: Hemoglobin A1c % 5.6 <6.0 % [...] average glucose, using the formula of the X5I-Tehhvxu Average Glucose study (ADAG), Diabetes Care, Vol.31,#8, Feb. 2007 UA ClnCatch+Micro w/rflx Cul t Reviewed date:04/29/2024 06:51:27 PM Interpretation: Performing Lab:[address] [phone] Notes/Report: Urine, Clean Catch Color Urine Yellow Appearance Urine Clear PH 5.5 5.0-9.0 Glucose Urine UA Negative Negative mg/dL Urine Blood Negative Negative Specific [place] - Urine 1.025 1.005-1.025 Urine Protein Negative [...] date:06/21/2024 11:47:30 AM Interpretation: Performing Lab: Notes/Report: [address] [address] XRay Report Signed Patient: Abdiel Null MR#: [id number] 53 : 1960 Acct:[id number] Age/Sex: 64 / M ADM Date: 06/21/24 Loc: HO.ED Attending Dr: Ordering Physician: Jose G Wong MD Date of Service: 06/21/24 Procedure(s): XR humerus RT Accession Number(s): [id number] cc: Denys Christianson MD; Jose G Wong [...] 06/21/24 1058 DD/ 0810 TD/TT: 06/21/24 0820 Patient Care Secretary: [address] [address] XRay Report Signed Patient: Ted Null MR#: [id number] 53 : 1960 Acct:[id number] Age/Sex: 64 / M ADM Date: 06/21/24 Loc: HO.ED Attending Dr: Ordering Physician: Jose G Wong MD Date of Service: 06/21/24 Procedure(s): XR hum erus RT Accession Number(s): [id number] cc: Denys Christianson MD; Jose G Wong MD EXAMINATION: X-ray right humerus X-ray right elbow X-ray right forearm CLINICAL INFORMATION: Fall COMPARISON: None TECHNIQUE: Humerus 3 views. For earm 2 views. Elbow 1 AP view. FINDINGS: There is a 1.5 cm ossification, posterior to the distal humerus, located approximatel y 3 cm proximal to the olecranon process. This could represent sequ beau of avulsion fracture, of indeterminate age. Clinically correlate . Mild soft tissue swelling in this region. No acute humeral fracture is identified. No suspicious bony lesions. Humeral head articul ates with the glenoid. Mild acromioclavicul ar arthritis. Small chronic appearing ossification along the superior aspect of the acromioclavicular joint.. No significant elbow joint effusion is identified. No additional acute elbow fracture is identified. No acute radial fracture is identified. No radial fracture i s seen. No additional fractures identified in the more distal aspect o f the forearm. Wrist articulation is maintained. X R/XR humerus RT IMPRESSION: 1. A 1.4 cm ossifica tion posteriorly at the level of the distal humerus. This is loc ated approximately 3 cm proximal to the olecranon process. These findi ngs could represent sequela of avulsion fracture. This of indeterminat e age. Clinically correlate. Additional imaging as clinically warranted. 2. No additional acu te fracture is identified. Electronically nader d by: Nathaniel Vargas MD 06/21/2024 10:58 AM EST Dictated By: Nathaniel Vargas MD Signed By: <Electronically signed by Nathaniel Vargas MD in OV> 06/21/24 1058 DD/ 0810 TD/TT: 06/21/24 0820 Patient Care Secretary: NITZA XR elbow RT 2V Reviewed date:06/21/2024 11:47:14 AM Interpretation: Performing Lab: Notes/Report: [address] [address] XRay Report Signed Patient: Abdiel Null MR#: [id number] 53 : 1960 Acct:[id number] Age/Sex: 64 / M ADM Date: 06/21/24 Loc: HO.ED Attending Dr: Ordering Physician: Jose G Wong MD Date of Service: 06/21/24 Procedure(s): XR elbow RT 2V Accession Number(s): [id number] cc: Denys Christianson MD; Jose G Wong [...] 06/21/24 1058 DD/ 08 TD/TT: 06/21/24 0820 Patient Care Secretary: [place] [address] XRay Report Signed Patient: Ted Null MR#: [id number] 53 : 1960 Acct:[id number] Age/Sex: 64 / M ADM Date: 06/21/24 Loc: HO.ED Attending Dr: Ordering Physician: Jose G Wong MD Date of Service: 06/21/24 Procedure(s): XR elb ow RT 2V Accession Number(s): [id number] cc: Denys Christianson MD; Jose G Wong MD EXAMINATION: X-ray right humerus X-ray right elbow X-ray right forearm CLINICAL INFORMATION: Fall COMPARISON: None TECHNIQUE: Humerus 3 views. For earm 2 views. Elbow 1 AP view. FINDINGS: There is a 1.5 cm ossification, posterior to the distal humerus, located approximatel y 3 cm proximal to the olecranon process. This could represent sequ beau of avulsion fracture, of indeterminate age. Clinically correlate . Mild soft tissue swelling in this region. No acute humeral fracture is identified. No suspicious bony lesions. Humeral head articul ates with the glenoid. Mild acromioclavicul ar arthritis. Small chronic appearing ossification along the superior aspect of the acromioclavicular joint.. No significant elbow joint effusion is identified. No additional acute elbow fracture is identified. No acute radial fracture is identified. No radial fracture i s seen. No additional fractures identified in the more distal aspect o f the forearm. Wrist articulation is maintained. X R/XR elbow RT 2V IMPRESSION: 1. A 1.4 cm ossifica tion posteriorly at the level of the distal humerus. This is loc ated approximately 3 cm proximal to the olecranon process. These findi ngs could represent sequela of avulsion fracture. This of indeterminat e age. Clinically correlate. Additional imaging as clinically warranted. 2. No additional acu te fracture is identified. Electronically nader d by: Nathaniel Vargas MD 06/21/2024 10:58 AM EST Dictated By: Nathaniel Vargas MD Signed By: <Electronically signed by Nathaniel Vargas MD in OV> 06/21/24 1058 DD/ 0810 TD/TT: 06/21/24 0820 Patient Care Secretary: NITZA XR forearm RT 2V Reviewed date:06/21/2024 11:47:38 AM Interpretation: Performing Lab: Notes/Report: [address] [address] XRay Report Signed Patient: Abdiel Null MR#: [id number] 53 : 1960 Acct:[id number] Age/Sex: 64 / M ADM Date: 06/21/24 Loc: HO.ED Attending Dr: Ordering Physician: Kalli Norwood Date of Service: 06/21/24 Procedure(s): XR forearm RT 2V Accession Number(s): [id number] cc: Denys Christianson MD; Kalli Norwood EXAMINATION: [...] by: Nathaniel Vargas MD 06/21/2024 10:58 AM [facility] [place] Dictated By: Nathaniel Vargas MD Signed By: <Electronically signed by Nathaniel Vargas MD in OV> 06/21/24 1058 DD/ 1 TD/TT: 06/21/24819 Patient Care Secretary: [place] [address] XRay Report Signed Patient: Ted Null MR#: [id number] 53 : 1960 Acct:[id number] Age/Sex: 64 / M ADM Date: 06/21/24 Loc: HO.ED Attending Dr: Ordering Physician: Kalli Norwood Date of Service: 06/21/24 Procedure(s): XR for earm RT 2V Accession Number(s): [id number] cc: Denys Christianson MD; Kalli Norwood EXAMINATION: X-ray right humerus X-ray right elbow X-ray right forearm CLINICAL INFORMATION: Fall COMPARISON: None TECHNIQUE: Humerus 3 views. For earm 2 views. Elbow 1 AP view. FINDINGS: There is a 1.5 cm ossification, posterior to the distal humerus, located approximatel y 3 cm proximal to the olecranon process. This could represent sequ beau of avulsion fracture, of indeterminate age. Clinically correlate . Mild soft tissue swelling in this region. No acute humeral fracture is identified. No suspicious bony lesions. Humeral head articul ates with the glenoid. Mild acromioclavicul ar arthritis. Small chronic appearing ossification along the superior aspect of the acromioclavicular joint.. No significant elbow joint effusion is identified. No additional acute elbow fracture is identified. No acute radial fracture is identified. No radial fracture i s seen. No additional fractures identified in the more distal aspect o f the forearm. Wrist articulation is maintained. X R/XR forearm RT 2V IMPRESSION: 1. A 1.4 cm ossifica tion posteriorly at the level of the distal humerus. This is loc ated approximately 3 cm proximal to the olecranon process. These findi ngs could represent sequela of avulsion fracture. This of indeterminat e age. Clinically correlate. Additional imaging as clinically warranted. 2. No additional acu te fracture is identified. Electronically nader d by: Nathaniel Vargas MD 06/21/2024 10:58 AM EST Dictated By: Nathaniel Vargas MD Signed By: <Electronically signed by Nathaniel Vargas MD in OV> 06/21/24 1058 DD/ 1 TD/TT: 06/21/24 0820 Patient Care Secretary: NITZA MR elbow RT wo con Reviewed date:07/04/2024 04:02:43 PM Interpretation: Performing Lab: Notes/Report: [address] [address] Magnetic Resonance Report Signed Patient: Abdiel Null MR#: [id number] 53 : 1960 Acct:[id number] Age/Sex: 64 / M ADM Date: 07/04/24 Loc: HO.MRI Attending Dr: Priscilla Ho PA-C Ordering Physician: Priscilla Ho PA-C Date of Service: 07/04/24 Procedure(s): MR elbow RT wo con Accession Number(s): [id number] cc: Denys Christianson MD; Priscilla Ho PA-C [...] by: Chemo Borrero MD 07/04/2024 01:46 PM [facility] [place] Dictated By: Chemo Borrero MD Signed By: <Electronically signed by Chemo Borrero MD in OV> 07/04/24 1346 DD/ 1018 TD/TT: 07/04/24 1110 Patient Care Secretary: GUANAKO [place] [address] Magnetic Resonance Report Signed Patient: Ted Null MR#: [id number] 53 : 1960 Acct:[id number] Age/Sex: 64 / M ADM Date: 07/04/24 Loc: .MRI Attending Dr: Georgiana Ho PA-C Ordering Physician: Priscilla Ho PA-C Date of Service: 07/04/24 Procedure(s): MR cristobal ow RT wo con Accession Number(s): [id number] cc: Denys Christianson MD; Priscilla Ho PA-C EXAMINATION: MR ELBOW WITHOUT CONTRAST, RIGHT CLINICAL INFORMATION: Slip and fall, decre ased range of motion. COMPARISON: Radiographs 06/26/2024 TECHNIQUE: MRI of the elbow was performed using routine sequences on a high-field scanner. FINDINGS: The central/superfic ial portion of the triceps tendon is avulsed from the olecranon attachment, along with an enthesophyte, and is retracted approximately 2.3 cm with associated fluid signal within the gap and extensive surroundin g soft tissue edema. The deeper tendinous and muscular attachment, as well as medial and lateral aspects of the attachment remain intact. The brachialis and biceps tendon insertions are intact. Common extensor tendinopathy with mild interstitial partial tearing. The common flexor te ndon origin is intact. Medial and lateral collateral ligaments appear intact. No focal articular cartilage defect or loose body. No joint effusion. M R/MR elbow RT wo con IMPRESSION: High-grade partial t ear of the triceps tendon insertion as described. The superficial/cent ral portion of the tendon along with an enthesophyte of the olecranon has avulsed and retracted approximately 2.3 cm with fluid an d surrounding soft tissue edema. Chronic common exten sor tendinopathy with interstitial partial tearing. Electronically nader d by: Chemo Borrero MD 07/04/2024 01:46 PM EST Dictated By: Chemo Borrero MD Signed By: <Electronically signed by Chemo Borrero MD in OV> 07/04/24 1346 DD/ 1018 TD/TT: 07/04/24 1110 Patient Care Secretary: DM Reason For Referral No Information Medications Medication SIG (Take, Route, Frequency, Duration) Notes Start Date End Date Status Escitalopram Oxalate 20 MG TAKE 1 TABLET BY MOUTH EVERY DAY for 90 Active Immunizations Vaccine Route Administration Date Status Comme [...] 07/31/2016 Refused Fluarix Quadrivalent Unknown 10/31/2018 Refused Social History Tobacco Use: Social History Observation [...] Never (0 point) Points 2 Interpretation Negative Problems Problem Type SNOMED Code ICD Code Onset Dates Problem Status W/U Status Risk Notes Problem 488244731 Thrombocytopenia (D69.6) Active confirmed Problem 258952037 Abnormal results of liver function studies (R94.5) Active confirmed Problem 957253706 Tubular adenoma of colon (D12.6) Active confirmed Problem 1064906 Prediabetes (R73.09) Active confirmed Problem 03481978033071151 History of smo melyssa (Z87.898) Active confirmed Problem 782119668 Food allergy (Z91.018) Active confirmed Problem Meralgia paresthetica (75267654) Meralgia paraesthetica, right (G57.11) Active confirmed Problem Qualitative platelet disorder (476058887) Abnormal platelets (D69.1) Active confirmed Problem 412743278 Anxiety attack (F41.0) Active confirmed Vital Signs Blood pressure diastolic 78 mm Hg 05/15/2024 nia ght is up 7 pounds since 05-03-23 Height 67.5 in 05/15/2024 weight is up 7 pounds since 05-03-23 Blood pressure systolic 142 mm Hg 05/15/2024 weig ht is up 7 pounds since 05-03-23 Weight 216 lbs 05/15/2024 weight is up 7 pounds since 05-03-23 BMI 33.33 kg/m2 05/15/2024 weight is up 7 pounds since 05-03-23 Procedures Procedure Date Ordered Date Performed Result Body Sit e Colonoscopy, Screening 02/24/2024 02/24/2024 repeat 5 y Encounters Encounter Location Date Provider Diagnosis Denys Christianson MD [address] [place] [address] Drive [address] [place] [phone] 04/28/2024 Denys Christianson Blood tests for rout ine general physical examination Z00.00 ; Prediabetes R73.09 ; Thrombocytopenia D69.6 and Encounter for immunization Z23 Denys Christianson MD [address] [place] [address] [place] [phone] 05/15/2024 Denys Christianson Abnormal platelets D69.1 ; Annual physical exam Z00.00 ; Prediabetes R73.09 ; Colon cancer screening Z12.11 and Depression screening Z13.31 Denys Christianson MD [address] [place] [address] [place] [phone] 06/22/2024 Denys Christianson Assessments Encounter Date Diagnosis (ICD Code) Assessment Notes Treatment Notes Treatment Clinical Notes Section Notes 04/28/2024 Blood tests for routine general physical examination (ICD-10 - Z00.00) 04/28/2024 Prediabetes (ICD-10 - R73.09) 05/15/2024 Abnormal platelets (ICD-10 - D69.1) has resolved 05/15/2024 Annual physical exam (ICD-10 - Z00.00) labs reviewed and discussed with patient 04/28/2024 Thrombocytopenia (ICD-10 - D69.6) 05/15/2024 Prediabetes (ICD-10 - R73.09) have advised to get back on diet and stop drinking 04/28/2024 Encounter for immunization (ICD-10 - Z23) 05/15/2024 Colon cancer screening (ICD-10 - Z12.11) guaiac negative 05/15/2024 Depression screening (ICD-10 - Z13.31) negative screen Plan Of Treatment Pending Test Test Name Order Date Electrocardiogram (EKG) 09/08/2015 Electrocardiogram (EKG) 10/24/2017 Next Appt Details Provider Name:Denys figueroa, 05/11/2025 08:00:00 AM, [address] [facility], [address] [facility], [place], [place], [phone], Provider Name:Denys figueroa, 05/18/2025 08:30:00 AM, [address], [address], [place], [place], [phone], Insurance Providers Payer Name Payer Address Payer Phone Subscriber Number Group Number Insured Name Patient Relationship to Insured Coverage Start Date Coverage End Date [employer] [address] [place], [place] [phone] [id number] Abdiel Null Self - patient is the insured Medical (General) History Medical History History ICD Code Colonoscopy 12/25/[address] Casper, had colonoscopy 03/12/19 repeat in 5 years02/24/24 repeat 5y
--- OUTSIDE RECORDS SUMMARY | 2024-11-18 11:08 | XMS_ITS ---
Author Organization Denys Christianson MD Address [address] [place], [place] [phone] Care Team Providers Care Unified Communications Engineer Name Role Phone Denys Christianson Primary [...] Location Date Provider Diagnosis Denys Christianson MD [address] [place] [address] [address] [place], [place] [phone] 05/15/2024 Denys Christianson Abnormal platelets D69.1 ; [...] Reason: Provider Name:Denys figueroa, 05/11/2025 08:00:00 AM, [address] [place] [address], [address] [place] [address], [phone], Provider Name:Denys figueroa, 05/18/2025 08:30:00 AM, [address] [place] [address], [facility], [place], [place], [phone], Progress Notes * Abdiel NULL ADOB: 2 (64 yo M)Acc No.[id number]:05/15/2024 Progress Notes Patient:?Abdiel Null Provider:?Denys Christianson MD :1960???Age:64 Y???Sex:Male Jose e:05/15/2024 Address:[address] [place] [address] [facility] Subjective: * Chief Complaints: * ???Annual visit [...] Pets: dogs. no Travel outside of the [place]. * Medications:?TakingEscitalop gray Oxalate 20 MG [...] mg/dL ?Urine Blood Negative Negative - ?Specific [place] - Urine 1.025 1.005-1.025 - ?Urine Protein [...] negative??5.?Depression screening? Notes: negative screen?? * Procedure Codes:?26501 TEST FOR BLOOD, FECES * Preventive Medicine:? ??Counseling:?Care goal follow-up plan:?Counseling for abnormal BMI provided?Yes,?Above Normal BMI Follow-up?Giving encouragement to exercise.? * Follow Up:?1 Year * * Sign off status: Completed true * Provider:?Denys Christianson MD Date:?1 07/15/2023 Generated for Shlomo cabrales/Kristen/eTkatyasmitting on:?11/18/2024 11:08 AM EDT History and Physical Notes * HPI [...] Total Score: 0 Interpretation and Intervention Depression Bubbajacob susan Findings: Negative Follow-Up for Depression: : [...]
--- OUTSIDE RECORDS SUMMARY | 2024-11-18 11:09 | XMS_ITS ---
Author Organization [facility] Address [address] [place] [address] Care Team Providers Care Log Yard Manager Name Role Phone Denys Christianson MD Primary Care Provider UnavaKarma Connolly Unavailable [phone] REASON FOR VISIT screening,hx polyps Problems Problem Type SNOMED Code ICD Code Onset Dates Problem Status W/U Status Risk Notes Problem History of polyp of colon (situation) (021419051) Personal history of colonic polyps (Z86.010) Active confirmed Problem Diverticulosis o f large intestine without perforation or abscess without bleeding (K57.30) Active confirmed Encounters Encounter Location Date Provider Diagnosis [facility] [address] [place] [phone] 02/24/2024 Karma Casper Encounter for scre ening [...] Progress Notes * KARMA NULL ADOB: 2 (64 yo M)Acc No.[id number]:02/24/2024 COLON WITH MAC Patient:?KARMA NULL Provider:?Karma Casper MD :1960???Age:63 Y???Sex:Male Jose e:02/24/2024 [facility] Pcp:Denys Christianson MD Subjective: * Chief Complaints: * ???1. Screening,hx polyps. * Medical History:? Objective: * Vitals:? Assessment: * Assessment: 1.?Encounter for screening c olonoscopy - Z12.11 (Primary)???2.?Personal history of colonic polyps - Z86.010???3.?Diverticulosis of large intestine without perforation or abscess without bleeding - K57.30???4.?Other hemorrhoids - K64.8??? Plan: * Treatment: * Procedure Codes:?98649 DIAGN OSTIC COLONOSCOPY, Modifiers: 33 * Preventive Medicine:? ??PATRICIA Screening:?Colonoscopy?Was interval between colonoscopies three years or more??Yes,?Was last colonoscopy performed three or more years ago??Yes.? * * The named appointment provid er may or may not be the originator of this progress note, and it is not deemed complete until electronically signed by the appointment provider. Sign off status: Pending * Provider:?Karma Casper MD Date:? 024 Generated for Shlomo cabrales/Kristen/eTkatyasmitting on:?11/18/2024 11:09 AM EDT
--- OUTSIDE RECORDS SUMMARY | 2024-11-18 11:09 | XMS_ITS ---
Author Organization [facility] Address [address] [place] [phone] Care Team Providers Care Powder Carrier Name Role Phone Denys Christianson MD Primary Care Provider Karma Mitchell Unavailable [phone] Allergies No Known Allergies REASON FOR VISIT Patient presents today for a colon screening Medications Medication SIG (Take, Route, Frequency, Duration) Notes Start Date End Date Status Paxil Takes as needed for anxiety Not-Taking Escitalopram Oxalate 10 MG 1 tablet Orally Once a day for anxiety As needed Active Social History Tobacco Use: Social History Observation Description Date Details (start date - stop date) Former Smoker NA - NA Tobacco Use/Smoking Question Answer Notes Patient is a former smoker When did you stop smoking? 5 years ago How long has it been since you last smoked? 5-10 years Section Notes: Nonsmoker since 2013; no sig alcohol Vital Signs Blood pressure systolic 00 mm Hg 09/26/19 24 Blood pressure diastolic 00 mm Hg 024 Height 67.5 in 09/26/2023 Weight 216 lbs 09/26/2023 BMI 33.33 kg/m2 09/26/2023 Encounters Encounter Location Date Provider Diagnosis [facility] [address] [place] [phone] 09/26/2023 Karma Casper History of adenomato us polyp of colon Z86.010 ; Preprocedural examination Z01.818 and Encounter for screening for malignant neoplasm of colon Z12.11 Assessments Encounter Date Diagnosis (ICD Code) Assessment Notes Treatment Notes Treatment Clinical Notes Section Notes 09/26/2023 History of adenomatous polyp of colon (ICD-10 - Z86.010) Overall, Karma appears well. Given his previous history of a tubular adenoma and his last colonoscopy approaching the five-year interval, I did recommend a followup colonoscopy for screening purposes. We did review the rationale for that regard to colon cancer prevention. Full consent is obtained for this, including risks of bleeding and perforation. The procedure will be done with monitored anesthesia care. The procedure will be done sometime over the summer as February will be the five-year marcelino previous exam and he is not having any new or worrisome GI complaints to suggest the need for an earlier colonoscopy. Karma is comfortable with this plan. Thank you again for allowing me to participate in Karma's care. I shall continue to keep you advised of his progress. 09/26/2023 Preprocedural examination (ICD-10 - Z01.818) Overall, Karma appears well. Given his previous history of a tubular adenoma and his last colonoscopy approaching the five-year interval, I did recommend a followup colonoscopy for screening purposes. We did review the rationale for that regard to colon cancer prevention. Full consent is obtained for this, including risks of bleeding and perforation. The procedure will be done with monitored anesthesia care. The procedure will be done sometime over the summer as February will be the five-year marcelino previous exam and he is not having any new or worrisome GI complaints to suggest the need for an earlier colonoscopy. Karma is comfortable with this plan. Thank you again for allowing me to participate in Karma's care. I shall continue to keep you advised of his progress. 09/26/2023 Encounter for screening for malignant neoplasm of colon (ICD-10 - Z12.11) Overall, Karma appears well. Given his previous history of a tubular adenoma and his last colonoscopy approaching the five-year interval, I did recommend a followup colonoscopy for screening purposes. We did review the rationale for that regard to colon cancer prevention. Full consent is obtained for this, including risks of bleeding and perforation. The procedure will be done with monitored anesthesia care. The procedure will be done sometime over the summer as February will be the five-year marcelino previous exam and he is not having any new or worrisome GI complaints to suggest the need for an earlier colonoscopy. Karma is comfortable with this plan. Thank you again for allowing me to participate in Karma's care. I shall continue to keep you advised of his progress. Plan Of Treatment Future Test Test Name Order Date COLONOSCOPY 09/26/2023 Next Appt Details Follow Up: prn, Reason: Progress Notes * KARMA NULL ADOB: [birth year] (63 yo M)Acc No.[id number]:09/26/2023 Progress Notes Patient:KARMA OROZCO Provider:?Karma Casper MD :1960???Age:63 Y???Sex:Male Jose e:09/26/2023 [id number] Pcp:Denys Christianson MD Subjective: * Chief Complaints: * ???Patient presents today fo r a colon screening * HPI: ???incontinence:? I saw Karma in the office today for evaluation of his personal history of a tubular adenoma of the colon and need for colorectal cancer screening. ?I last saw Karma in February of 2019, at which time he underwent a followup screening colonoscopy that was negative. He did have a tubular adenoma removed in 2013. He presently feels well. He enjoys a good appetite, without any significant heartburn or dysphagia. His bowel movements are regular and without any signs of bleeding. He denies abdominal pain, jaundice, nor weight loss. He denies any known family history colon cancer. * ROS:?General/Constitutional:?Change in appetite?denies.?Chills?denies.?Fatigue?denies.?Ophthalmologic:?Patient denies? Negative..?ENT:?Patient denies?Negative..?Respiratory:?Patient denies?No coughing/hemoptysis..?Cardiovascular:?Patient denies? No chest pain/orthopnea..?Gastrointestinal:?Comments?See HPI for details.?Genitourinary:?Patient denies? No dysuria/hematuria..?Musculoskeletal:?Patient denies? No specific arthralgias/myalgias..?Skin:?Patient denies?No rash/pruritus..?Neurologic:?Patient denies? No headaches/seizures..?Psychiatric:?Patient denies?Negative..? * Medical History:? * Surgical History:?Hernia rep air-left inguinal 2008Bilateral cataracts-lens implants [facility] a basal cell facial cancer 2022 * Hospitalization/Major Diagno stic Procedure:?No Hospitalization History. * Family History:?Father: dece ased.?Mother: .? No colorectal cancer. * Social History:?Tobacco Use:?Tobacco Use/Smoking?Patient is a?former smoker,?When did you stop smoking?? 5 years ago,?How long has it been since you last smoked??5-10 years.?Drugs/Alcohol:?Alcohol Screen?Points: 2, Interpretation: Negative.?Miscellaneous:?Marital status: . 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 ???Nonsmoker since 2013; no sig alcohol. * Medications:?TakingEscitalop gray Oxalate 10 MG Tablet 1 tablet Orally Once a day for anxiety, Notes: As neededTaking Escitalopram Oxalate 10 MG Tablet 1 tablet Orally Once a day for anxiety, Notes: As neededNot-Taking/PRNPaxil , Notes: Takes as needed for anxietyNot-Taking/PRN Paxil , Notes: Takes as needed for anxietyDiscontinuedAspirin 81 81 MG Tablet Delayed Release 1 tablet Orally Once a day/as neededMedication List reviewed and reconciled with the patientDiscontinued Aspirin 81 81 MG Tablet Delayed Release 1 tablet Orally Once a day/as neededMedication List reviewed and reconciled with the patient * Allergies:?N.K.D.A.yes[Aller gies Verified] Objective: * Vitals:?Wt: 216 lbs, Ht: 67. 5 in, BMI:33.33 Index, BP: 00/00 mm Hg. * Examination: ???General Examination: ?GENERAL APPEARANCE:?pleasant, well nourished, well developed, in no acute distress.?EYES:?sclera non-icteric.?ORAL CAVITY:?mucosa moist.?NECK/THYROID:?no cervical lymphadenopathy, neck supple.?SKIN:?nonjaundiced, no spider angiomata..?HEART:?S1, S2 normal.?LUNGS:?clear to auscultation bilaterally.?ABDOMEN:?normal bowel sounds, no guarding or rigidity, no hepatosplenomegaly, no masses palpable, soft, nontender, nondistended..?EXTREMITIES:?no edema.?NEUROLOGIC:?alert and oriented.? Assessment: * Assessment: 1.?Preprocedural examination - Z01.818 (Primary)?2.?History of adenomatous polyp of colon - Z86.010?3.?Encounter for screening for malignant neoplasm of colon - Z12.11? Overall, Karma appears well . Given his previous history of a tubular adenoma and his last colonoscopy approaching the five-year interval, I did recommend a followup colonoscopy for screening purposes. We did review the rationale for that regard to colon cancer prevention. Full consent is obtained for this, including risks of bleeding and perforation. The procedure will be done with monitored anesthesia care. The procedure will be done sometime over the summer as [place] will be the five- year marcelino previous exam and he is not having any new or worrisome GI complaints to suggest the need for an earlier colonoscopy. Karma is comfortable with this plan. Thank you again for allowing me to participate in Karma's care. I shall continue to keep you advised of his progress. Plan: * Treatment: 2.?Encounter for screening for malignant neoplasm of colon?Procedure: COLONOSCOPY (Ordered for 09/26/2023)* with MACsched for 02/24/24 at 7:30 ammiralax * Procedure Codes:?3017F COLOR ECTAL CA SCREEN DOC IQR7488M TOBACCO NON-IUBTN8495 BP SCR NOT PRFRM REC REASON NOS * Preventive Medicine:? ??Counseling:?Care goal follow-up plan:?Above Normal BMI Follow-up?Giving encouragement to exercise,?BMI management provided?Yes.? * Follow Up:?prn * * Sign off status: Completed true * Provider:?Karma Casper MD Date:? 024 Generated for Sinani keron/Kristen/eTransmitting on:?11/18/2024 11:09 AM EDT History and Physical Notes * HPI (History of Present Illness) Category Sub-Category Detail Notes Category Not es incontinence I saw Karma in the office today for evaluation of his personal history of a tubular adenoma of the colon and need for colorectal cancer screening. I last saw Karma in February of 2019, at which time he underwent a followup screening colonoscopy that was negative. He did have a tubular adenoma removed in 2013. He presently feels well. He enjoys a good appetite, without any significant heartburn or dysphagia. His bowel movements are regular and without any signs of bleeding. He denies abdominal pain, jaundice, nor weight loss. He denies any known family history colon cancer. Examination Category Sub-Category Detail Notes Category Not es General Examination GENERAL APPEARANCE: pleasant , well [...]
--- OUTSIDE RECORDS SUMMARY | 2024-11-18 11:09 | XMS_ITS ---
Author Organization Denys Christianson MD Address [address] [place] [phone] Care Team Providers Care Body And Frame Technician Name Role Phone Denys Christianson Primary Care Provider REASON FOR VISIT ER Encounters Encounter Location Date Provider Diagnosis Denys Christianson MD [address] [facility] [address] [place] [phone] 06/22/2024 Denys Christianson Plan Of Treatment Next Appt Details Provider Name:Denys figueroa, 05/11/2025 08:00:00 AM, [address] [place] [address], [address], [phone], Provider Name:Denys Claudio ier, 05/18/2025 08:30:00 AM, [address] [place] [address], [address], [phone], Progress Notes * Abdiel NULL ADOB: 2 (64 yo M)Acc No.[id number]:06/22/2024 Patient:?Abdiel Null :1960???Age:64 Y???Sex:Male Address: [place] [address] * true * Date:? Generated for Shlomo cabrales/Kristen/Jayson on:?11/18/2024 11:09 AM EDT
--- OUTSIDE RECORDS SUMMARY | 2024-11-18 11:09 | XMS_ITS | Patient Health Record ---
Author Organization [facility] Address [address] [place] [address] Care Team Providers Care Solar Energy Advisor Name Role Phone Denys Christianson MD Primary Care Provider Karma Mitchell Unavailable [phone] Allergies No Known Allergies Reason For Referral No Information Medications Medication SIG (Take, Route, Frequency, Duration) Notes Start Date End Date Status Paxil Takes as needed for anxiety Not-Taking Escitalopram Oxalate 10 MG 1 tablet Orally Once a day for anxiety As needed Active Immunizations Vaccine Route Administration Date Status Comme nts Influenza Unknown 03/15/2018 Administered Social History Tobacco Use: Social History Observation Description Date Details (start date - stop date) Former Smoker NA - NA Tobacco Use/Smoking Question Answer Notes Patient is a former smoker When did you stop smoking? 5 years ago How long has it been since you last smoked? 5-10 years Section Notes: Smoker 1/2 ppd; no sig alcoh ol Nonsmoker since 2013; no sig alcohol Nonsmoker since 2013; no sig alcohol Problems Problem Type SNOMED Code ICD Code Onset Dates Problem Status W/U Status Risk Notes Problem 506073024 Encounter for screening for malignant neoplasm of colon (Z12.11) Active confirmed Problem 122175909 History of adenomatous polyp of colon (Z86.010) Active confirmed Problem Personal history of colonic polyps (Z86.010) Active confirmed Problem Diverticular disease of colon (064162850) Diverticulosis of large intestine without perforation or abscess without bleeding (K57.30) Active confirmed Problem 768322024503033 Preprocedural examination (Z01.818) Active confirmed Encounters Encounter Location Date Provider Diagnosis [facility] [address], [place] [phone] 02/24/2024 Karma Casper Encounter for scre ening [...] hemorrhoids (ICD-10 - K64.8) Plan Of Treatment Future Test Test Name Order Date COLONOSCOPY 10/14/2013 COLONOSCOPY 02/03/2019 COLONOSCOPY 09/26/2023 Insurance Providers Payer Name Payer Address Payer Phone Subscriber Number Group Number Insured Name Patient Relationship to Insured Coverage Start Date Coverage End Date [facility] [employer] [facility] [address] [place] [address] [id number] KARMA NULL Self - patient is the insured Medical (General) History Medical History History ICD Code Denies [place],DM,CVA,Lung [...]
== END 2024-11-18 10:14 | disposition home or self-care (01) ==
LOC: HO.HOS 10:01
PROVIDERS: PCP Internal Medicine; Visit Provider Physician Assistant
DX: S46.311A Strain of muscle, fascia and tendon of triceps, right arm, initial encounter (principal)
CPT/HCPCS: 99213; G2211

== ENCOUNTER → 2024-11-18 10:00 | Outpatient (BNVA) | payer OTHER, SELFPAY | PROVIDERS: PCP Internal Medicine; Visit Provider Physician Assistant | DX: S46.311D Strain of muscle, fascia and tendon of triceps, right arm, subsequent encounter (principal) | CPT/HCPCS: 99212 ==

== ENCOUNTER 2025-05-11 08:00 | Outpatient (REF) | payer OTHER, SELFPAY ==
--- OUTSIDE RECORDS SUMMARY | 2024-02-24 03:30 | XMS_ITS ---
Author Organization [facility] Address [address] [place] [address] Care Team Providers Care Car Starter Name Role Phone Denys Christianson MD Primary Care Provider UnaKarma Mcdermott Unavailable [phone] REASON FOR VISIT screening,hx polyps Problems Problem Type SNOMED Code ICD Code Onset Dates Problem Status W/U Status Risk Notes Problem History of polyp of colon (situation) (497242892) Personal history of colonic polyps (Z86.010) Active confirmed Problem Diverticular disease of colon (467241392) Diverticulosis of large intestine without perforation or abscess without bleeding (K57.30) Active confirmed Encounters Encounter Location Date Provider Diagnosis [facility] [place] [address] [place] [phone] 02/24/2024 Karma Casper Encounter for scre ening [...] KARMA NULL ADOB: 2 (65 yo M)Acc No.[id number]:02/24/2024 COLON WITH MAC Patient: KARMA PANDA Provider: Abdifatah Casper MD :1960 A ge:63 Y S ex:Male Date:02/24/2024 Address:[address] [place], [place] [phone] Pcp:Denys Christianson MD Subjective: * Chief Complaints: [...] 02/24/2024 Generated for Shlomo cabrales/Kristen/Juanransmitting on: 1 12:14 PM EDT
--- OUTSIDE RECORDS SUMMARY | 2024-04-28 03:15 | XMS_ITS ---
Author Organization Denys Christianson MD Address [address] [place], [place] [phone] Care Team Providers Care Pedodontist Name Role Phone Denys Christianson Primary Care Provider Results Component Value Reference Range Notes Complete Blood Count Auto Di ff Reviewed date:04/30/2024 09:27:57 PM Interpretation: Performing Lab:[facility], [address] [place] [phone] Notes/Report: White Blood Count 6.6 4.8-10.8 X10*3/uL [...] NRBC Abs Auto 0.000 0.0-0.012 X10*3/uL Comprehensive [place]. Panel Fa st Reviewed date:04/30/2024 09:27:30 PM Interpretation: Performing Lab:[facility], [address] [place] [phone] Notes/Report: Sodium 141 135-145 mmol/L Potassium 4.6 3.3-5.1 mmol/L Chloride 107 96-108 mmol/L Carbon Dioxide 28 22-29 mmol/L Anion Gap 11 12-20 Blood Urea Nitrogen 17 9-16 mg/dL Creatinine 1.33 0.5-1.4 mg/dL Estimated Glomerular Filt Rate 54 NOTE: For -Latvian individuals, multiply the result by 1.210. Chronic [...] Panel Reviewed date:04/29/2024 06:41:08 PM Interpretation: Performing Lab:[facility], [address] [place] [phone] Notes/Report: Triglycerides 163 <150 mg/dL Desirable Triglyceride: [...] (Free>4and<10) Reviewed date:04/29/2024 06:41:57 PM Interpretation: Performing Lab:[facility], [address] [place] [phone] Notes/Report: PSA,Total (Free>4and<10) 0.25 0.00-4.00 ng/mL A [...] Random Reviewed date:04/29/2024 06:42:55 PM Interpretation: Performing Lab:[facility], [address] [place] [phone] Notes/Report: Creatinine Urine 316.91 Microalbumin Urine 11.0 Microalbum/Creatinine Ratio Ur 3.4 <30 ug/mg cr Albumin/Creatinine Ratio Reference Ranges: Normal: < 30 ug/mg creatinine Microalbuminuria: 30 - 300 ug/mg creatinine Clinical Albuminuria: > 300 ug/mg creatinine Hemoglobin A1c Reviewed date:04/29/2024 06:41:49 PM Interpretation: Performing Lab:[facility], [address] [place] [address] Notes/Report: Hemoglobin A1c % 5.6 <6.0 % [...] average glucose, using the formula of the M3C-Gaofdzq Average Glucose study (ADAG), Diabetes Care, Vol.31,#8, Feb. 2007 UA ClnCatch+Micro w/rflx Cul t Reviewed date:04/29/2024 06:51:27 PM Interpretation: Performing Lab:[facility], [address] [place] [phone] Notes/Report: Urine, Clean Catch Color Urine Yellow Appearance Urine Clear PH 5.5 5.0-9.0 Glucose Urine UA Negative Negative mg/dL Urine Blood Negative Negative Specific [place] - Urine 1.025 1.005-1.025 Urine Protein Negative [...] Date Provider Diagnosis Denys Christianson MD [address] [place], [place] [phone] 04/28/2024 Denys Christianson Blood tests for rout [...] Next Appt Details Provider Name:Denys Claudio ier, 05/18/2025 08:30:00 AM, [address] [place] [address], [address], [place], [place], [phone], Progress Notes * Abdiel NULL ADOB: 2 (64 yo M)Acc No.[id number]:04/28/2024 Progress Note Patient: Abdiel Mora Provider: Jasmyne Christianson MD :1960 A ge:64 Y S ex:Male Date:04/28/2024 Address:[address] [place], [place] [phone] Subjective: * Chief Complaints: * Y early [...] Blood Count Auto Diff L AB: Comprehensive [place]. Panel Fast L AB: Lipid Panel L AB: PSA,Total (Free>4and<10) L AB: Microalbumin, Random L AB: Hemoglobin A1c L AB: UA ClnCatch+Micro w/rflx Cult 3. T hrombocytopenia L AB: Complete Blood Count Auto Diff L AB: Comprehensive [place]. Panel Fast L AB: Lipid Panel L AB: PSA,Total (Free>4and<10) L AB: Microalbumin, Random L AB: Hemoglobin A1c L AB: UA ClnCatch+Micro w/rflx Cult * Immunizations: Fluarix Quadrivalent - 150 : 0.5 mL (Dose No:1) (Route: Intramuscular) given by Georgina Holt on Left Deltoid * Procedure Codes: 3 6415 VENIPUNCT, ROUTINE*29564 FLU VACCINE NO PRESERV 3 & >71075 IMMUNIZATION ADMIN * * Sign off status: Completed true * Provider: Jasmyne Christianson MD Date: Generated for Shlomo cabrales/Kristen/Jayson on: 12:15 PM EDT
--- OUTSIDE RECORDS SUMMARY | 2024-05-15 04:30 | XMS_ITS ---
Author Organization Denys Christianson MD Address [address] [place], [place] [phone] Care Team Providers Care Direct Care Professional Name Role Phone Denys Christianson Primary Care Provider Allergies Allergen (clinical drug ingredient) Drug/Non Drug [...] Date Provider Diagnosis Denys Christianson MD [address] [place], [place] [phone] 05/15/2024 Denys Christianson Abnormal platelets D69.1 ; [...] Up: 1 Year, Reason: Provider Name:Denys figueroa, 05/18/2025 08:30:00 AM, [address], [address], [place], [place], [id number], Progress Notes * Abdiel NULL ADOB: [birth year] (64 yo M)Acc No.[id number]:05/15/2024 Progress Notes Patient: Abdiel Mora Provider: Jasmyne Christianson MD :1960 A ge:64 Y S ex:Male Date:05/15/2024 [facility] Subjective: * Chief Complaints: * A nnual [...] Pets: dogs. no Travel outside of the [place]. * Medications: T akingEscitalopram Oxalate 20 [...] mg/dL Urine Blood Negative Negative - Specific [place] - Urine 1.025 1.005-1.025 - Urine Protein [...] provided?Yes, A grace Normal BMI Follow-up G iving encouragement to exercise. * Follow Up: 1 Year * * Sign off status: Completed true * Provider: Jasmyne Christianson MD Date: 07/15/2023 Generated for Shlomo cabrales/Kristen/Darnellitting on: 12:14 PM EDT History and Physical Notes * HPI (History [...] Score: 0 Interpretation and Intervention Depression Oriana davis Findings: Negative Follow-Up for Depression: : review [...]
--- OUTSIDE RECORDS SUMMARY | 2024-06-22 06:48 | XMS_ITS ---
Author Organization Denys Christianson MD Address [address] [place] [phone] Care Team Providers Care Cook Taco Name Role Phone Denys Christianson Primary Care Provider REASON FOR VISIT ER Encounters Encounter Location Date Provider Diagnosis Denys Christianson MD [address] [facility] [address] [place] [phone] 06/22/2024 Denys Christianson Plan Of Treatment Next Appt Details Provider Name:Denys Claudio ier, 05/18/2025 08:30:00 AM, [address] [place] [address], [address] [place] [address], [phone], Progress Notes * Abdiel NULL ADOB: 2 (64 yo M)Acc No.[id number]:06/22/2024 Patient: Abdiel Mora :1960 A ge:64 Y S ex:Male Address:[address] [place] [id number] * true * Date: Generated for Printi ng/Faxing/eTransmitting on: 12:15 PM EDT
--- OUTSIDE RECORDS SUMMARY | 2025-02-16 05:15 | XMS_ITS ---
Author Organization Denys Christianson MD Address [address] [place] [phone] Care Team Providers Care Support Group Manager Name Role Phone Denys Christianson Primary Care Provider REASON FOR VISIT refill Medications Medication SIG (Take, Route, Frequency, Duration) Notes Start Date End Date Status Escitalopram Oxalate 20 MG TAKE 1 TABLET BY MOUTH EVERY DAY Orally Once a day for 90 days Active Encounters Encounter Location Date Provider Diagnosis Denys Christianson MD [address] [facility] [address] [place] [phone] 02/16/2025 Denys Christianson Plan Of Treatment Medication Medication Name Sig Start Date Stop Date Notes Escitalopram Oxalate 20 MG TAKE 1 TABLET BY MOUTH EVERY DAY Orally Once a day for 90 days Next Appt Details Provider Name:Denys figueroa, 05/18/2025 08:30:00 AM, [address] [place] [address], [address], [phone], Progress Notes * Abdiel NULL ADOB: 2 (64 yo M)Acc No.[id number]:02/16/2025 Patient: Abdiel PANDA :1960 A ge:64 Y S ex:Male Address:[address] [place] [address] [place] [address] * Refills Refill Escitalopram Oxalate Tablet, 20 MG, Orally, 90, TAKE 1 TABLET BY MOUTH EVERY DAY, Once a day, 90 days, Refills=5 * true * Date: Generated for Shlomo cabrales/Kristen/Darnellitting on: 12:13 PM EDT
--- OUTSIDE RECORDS SUMMARY | 2025-05-11 03:45 | XMS_ITS ---
Author Organization Denys Christianson MD Address [address] [place], [place] [phone] Care Team Providers Care Electrical Engineering Teacher Name Role Phone Denys Christianson Primary Care Provider Results Component Value Reference Range Notes Complete Blood Count Auto Di ff (Not yet reviewed by provider) Interpretation: Performing Lab:[facility], [address] [place] [phone] Notes/Report: White Blood Count 5.7 4.8-10.8 X10*3/uL [...] NRBC Abs Auto 0.000 0.0-0.012 X10*3/uL Comprehensive [place]. Panel Fa st (Not yet reviewed by provider) Interpretation: Performing Lab:[address] [phone] Notes/Report: Sodium 142 135-145 mmol/L Potassium 4.0 [...] Alkaline Phosphatase 68 39-117 U/L Lipid Panel (Not yet review ed by provider) Interpretation: Performing Lab:[facility] [phone] Notes/Report: Triglycerides 129 <150 mg/dL Desirable Triglyceride: [...] in patients with liver disease. PSA,Total (Free>4and<10) (No t yet reviewed by provider) Interpretation: Performing Lab:[address] [phone] Notes/Report: PSA,Total (Free>4and<10) 0.22 0.00-4.00 ng/mL A [...] i Chemiluminescent Microparticle Immunoassay (CMIA) Hemoglobin A1c (Not yet revi ewed by provider) Interpretation: Performing Lab:[address] [phone] Notes/Report: Hemoglobin A1c % 5.9 <6.0 % [...] average glucose, using the formula of the K2V-Etzlzuh Average Glucose study (ADAG), Diabetes Care, Vol.31,#8, Feb. 2007 REASON FOR VISIT yearly fasting labs Immunizations Vaccine Route Administration Date Status Comme nts Fluarix Quadrivalent - 150 IM Intramuscular 05/11/2025 Adm inistered Encounters Encounter Location Date Provider Diagnosis Denys Christianson MD [address] [place] [address] [place] [phone] 05/11/2025 Denys Christianson Blood tests for rout ine general physical examination Z00.00 ; Prediabetes R73.09 ; Thrombocytopenia D69.6 and Encounter for administration of vaccine Z23 Assessments Encounter Date Diagnosis (ICD Code) Assessment Notes Treatment Notes Treatment Clinical Notes Section Notes 05/11/2025 Blood tests for routine general physical examination (ICD-10 - Z00.00) 05/11/2025 Prediabetes (ICD-10 - R73.09) 05/11/2025 Thrombocytopenia (ICD-10 - D69.6) 05/11/2025 Encounter for administration of vaccine (ICD-10 - Z23) Plan Of Treatment Pending Test Test Name Order Date Complete Blood Count Auto Diff 5 Comprehensive [place]. Panel Fast 5 Lipid Panel 05/11/2025 PSA,Total (Free>4and<10) 05/11/2025 Microalbumin, Random 05/11/2025 Hemoglobin A1c 05/11/2025 UA ClnCatch+Micro w/rflx Cult 05/11/2025 Next Appt Details Provider Name:Denys Claudio ier, 05/18/2025 08:30:00 AM, [address] [place] [address], [address], [place], [place], [phone], Progress Notes * Abdiel NULL ADOB: 2 (65 yo M)Acc No.[id number]:05/11/2025 Progress Note Patient: Abdiel PANDA Provider: Jasmyne Christianson MD :1960 A ge:65 Y S ex:Male Date:05/11/2025 Address:[address] [place] [address] [id number] Subjective: * Chief Complaints: * 1 . Yearly fasting labs. * Medical History: Objective: * Vitals: Assessment: * Assessment: 1. B lood tests for routine general physical examination - Z00.00 (Primary) 2 .?Prediabetes - R73.09 3 . T hrombocytopenia - D69.6 4 .?Encounter for administration of vaccine - Z23 Plan: * Treatment: 2. P rediabetes L AB: Complete Blood Count Auto Diff (Collection Date & Time - 05/11/2025 08:00 AM) L AB: Comprehensive [place]. Panel Fast (Collection Date & Time - 05/11/2025 08:00 AM) L AB: Lipid Panel (Collection Date & Time - 05/11/2025 08:00 AM) L AB: PSA,Total (Free>4and<10) (Collection Date & Time - 05/11/2025 08:00 AM) L AB: Microalbumin, Random L AB: Hemoglobin A1c (Collection Date & Time - 05/11/2025 08:00 AM) L AB: UA ClnCatch+Micro w/rflx Cult 3. T hrombocytopenia L AB: Complete Blood Count Auto Diff (Collection Date & Time - 05/11/2025 08:00 AM) L AB: Comprehensive [place]. Panel Fast (Collection Date & Time - 05/11/2025 08:00 AM) L AB: Lipid Panel (Collection Date & Time - 05/11/2025 08:00 AM) L AB: PSA,Total (Free>4and<10) (Collection Date & Time - 05/11/2025 08:00 AM) L AB: Microalbumin, Random L AB: Hemoglobin A1c (Collection Date & Time - 05/11/2025 08:00 AM) L AB: UA ClnCatch+Micro w/rflx Cult * Immunizations: Fluarix Quadrivalent - 150 : 0.5 mL (Dose No:1) (Route: Intramuscular) given by Georgina Holt , Office Staff on Left Deltoid * Procedure Codes: 3 6415 VENIPUNCT, ROUTINE*, 67330 FLU VACCINE NO PRESERV 3 & >, [address] IMMUNIZATION ADMIN * * The named appointment provid er may or may not be the originator of this progress note, and it is not deemed complete until electronically signed by the appointment provider. Sign off status: Pending * Provider: Jasmyne Christianson MD Date: Generated for Shlomo cabrales/Kristen/Jayson on: 12:14 PM EDT
[2025-05-11 10:10] LABS: MANUAL DIFF FLAG NO
[2025-05-11 10:56] LABS: Hematocrit 45.7 % (42.0-52.0); Hemoglobin 15.7 g/dl (14.0-18.0); Imm Gran Abs Auto 0.02 X10*3/uL (0.00-0.03); Imm Gran Pct Auto 0.3 % (0.0-0.4); Lymphocytes Absolute Auto 1.7 X10*3/uL (1.2-4.9); Mean Corpuscular HGB Conc 34.4 g/dl (31.0-36.0); Mean Corpuscular Hemoglobin 30.4 pg (27.0-33.0); Mean Corpuscular Volume 88.4 fL (80.0-98.0); NRBC Abs Auto 0.000 X10*3/uL (0.0-0.012); NRBC Pct Auto 0.0 /100WBC (0.0-0.2); Platelet Count 191 X10*3/uL (160-400); Red Blood Count 5.17 X10*6/uL (4.60-5.80); White Blood Count 5.7 X10*3/uL (4.8-10.8)
[2025-05-11 11:00] LABS: Alanine Aminotransferase 30 U/L (0-40); Albumin Level 4.3 g/dL (3.5-5.0); Alkaline Phosphatase 68 U/L (39-117); Anion Gap 11 (12-20); Aspartate Amino Transferase 26 U/L (5-37); Blood Urea Nitrogen 20 mg/dL (9-16); Calcium 8.5 mg/dL (8.4-10.2); Carbon Dioxide 25 mmol/L (22-29); Chloride 110 mmol/L (96-108); Cholesterol 216 mg/dL (<200); Estimated Glomerular Filt Rate > 60; HDL Cholesterol 45 mg/dL (>40); Potassium 4.0 mmol/L (3.3-5.1); Sodium 142 mmol/L (135-145); Total Protein 7.5 g/dL (6.5-8.0); Triglycerides 129 mg/dL (<150)
[2025-05-11 11:11] LABS: PSA,Total (Free>4and<10) 0.22 ng/mL (0.00-4.00)
--- OUTSIDE RECORDS SUMMARY | 2025-05-11 12:15 | XMS_ITS | Patient Health Record ---
Author Organization [facility] Address [address] [place] [address] Care Team Providers Care Compressed Gas Equipment Mechanic Name Role Phone Denys Christianson MD Primary Care Provider Karma Mitchell Unavailable [phone] Allergies No Known Allergies Reason For Referral [...] Problem Status W/U Status Risk Notes Problem Screening for malignant neoplasm of colon (904889678) Encounter for screening for malignant neoplasm of colon (Z12.11) Active confirmed Problem History of adenomatous polyp of colon (186440174) History of adenomatous polyp of colon (Z86.010) Active confirmed Problem History of polyp of colon (situation) (558163697) Personal history of colonic polyps (Z86.010) Active confirmed Problem Diverticular disease of colon (052714694) Diverticulosis of large intestine without perforation or abscess without bleeding (K57.30) Active confirmed Problem Preprocedural examination (508588483927196) Preprocedural examination (Z01.818) Active confirmed Plan Of Treatment Future Test Test Name Order Date COLONOSCOPY 10/14/2013 COLONOSCOPY 02/03/2019 COLONOSCOPY 09/26/2023 Insurance Providers Payer Name Payer Address Payer Phone Subscriber Number Group Number Insured Name Patient Relationship to Insured Coverage Start Date Coverage End Date [facility] [employer] [address] [place] [address] [id number] KARMA NULL Self - patient is the insured Medical (General) History Medical History History ICD Code Denies HI,DM,CVA,Lung disease,renal dise ase Anxiety He had a [...]
--- OUTSIDE RECORDS SUMMARY | 2025-05-11 12:15 | XMS_ITS | Patient Health Record ---
Author Organization Denys Christianson MD Address [address] [place], [place] [id number] Care Team Providers Care Mold Yard Worker Name Role Phone Denys Christianson Primary Care Provider [phone] Allergies Allergen (clinical drug ingredient) Drug/Non Drug Allergy documented on EMR Reaction Allergy Type Onset Date Status bees (uncoded) body swelling Allergy A ctive Results Component Value Reference Range Notes Complete Blood Count Auto Di ff (Not yet reviewed by provider) Interpretation: Performing Lab:[facility], [address] [place] [phone] Notes/Report: White Blood Count 5.7 4.8-10.8 X10*3/uL [...] NRBC Abs Auto 0.000 0.0-0.012 X10*3/uL Comprehensive [place]. Panel Fa st (Not yet reviewed by provider) Interpretation: Performing Lab:[facility], [address] [place] [phone] Notes/Report: Sodium 142 135-145 mmol/L Potassium 4.0 [...] 68 39-117 U/L Lipid Panel (Not yet reviewe d by provider) Interpretation: Performing Lab:[facility], [address] [place] [phone] Notes/Report: Triglycerides 129 <150 mg/dL Desirable Triglyceride: [...] t yet reviewed by provider) Interpretation: Performing Lab:[facility], [address] [place] [phone] Notes/Report: PSA,Total (Free>4and<10) 0.22 0.00-4.00 ng/mL A [...] yet revi ewed by provider) Interpretation: Performing Lab:[facility], [address] [place] [phone] Notes/Report: Hemoglobin A1c % 5.9 <6.0 % [...] average glucose, using the formula of the R7G-[id number] Average Glucose study (ADAG), Diabetes Care, Vol.31,#8, 2007 Occult Blood, Stool, Guaiac Reviewed date:05/15/2024 01:36:03 PM Interpretation:Negative Performing Lab: Notes/Report: Negative Occult Blood, Stool, Guaiac Neg XR humerus RT Reviewed date:06/21/2024 11:47:30 AM Interpretation: Performing Lab: Notes/Report: [address] [address] XRay Report Signed Patient: Abdiel Null MR#: [id number] 53 : 1960 Acct:[id number] Age/Sex: 64 / M ADM Date: 06/21/24 Loc: HO.ED Attending Dr: Ordering Physician: Jose G Wong MD Date of Service: 06/21/24 Procedure(s): XR humerus RT Accession Number(s): [id number] cc: Denys Christianson MD; Jose G Wong [...] Vargas MD in OV> 06/21/24 1058 DD/ 9 TD/TT: 06/21/24819 Acid Condenser: [address] [address] XRay Report Signed Patient: Ted Null MR#: [id number] 53 : 1960 Acct:[id number] Age/Sex: 64 / M ADM Date: 06/21/24 Loc: HO.ED Attending Dr: Ordering Physician: Jose G Wong MD Date of Service: 06/21/24 Procedure(s): XR hum erus RT Accession Number(s): [id number] cc: Denys Christianson MD; Jose G Wong [...] Vargas MD in OV> 06/21/24 1058 DD/ 9 TD/TT: 06/21/24 0820 Acid Condenser: XR elbow RT 2V Reviewed date:06/21/2024 11:47:14 AM Interpretation: Performing Lab: Notes/Report: [address] [address] XRay Report Signed Patient: Abdiel Null MR#: [id number] 53 : 1960 Acct:[id number] Age/Sex: 64 / M ADM Date: 06/21/24 Loc: HO.ED Attending Dr: Ordering Physician: Jose G Wong MD Date of Service: 06/21/24 Procedure(s): XR elbow RT 2V Accession Number(s): [id number] cc: Denys Christianson MD; Jose G Wong [...] 06/21/24 1058 DD/ 0810 TD/TT: 06/21/24 0820 Acid Condenser: [address] [address] XRay Report Signed Patient: Ted Null MR#: [id number] 53 : 1960 Acct:[id number] Age/Sex: 64 / M ADM Date: 06/21/24 Loc: .ED Attending Dr: Ordering Physician: Jose G Wong MD Date of Service: 06/21/24 Procedure(s): XR elb ow RT 2V Accession Number(s): [id number] cc: Denys Christianson MD; Jose G Wong [...] by: Nathaniel Vargas MD 06/21/2024 10:58 AM [facility] Dictated By: Nathaniel Vargas MD Signed By: <Electronically signed by Nathaniel Vargas MD in OV> 06/21/24 1058 DD/ 0810 TD/TT: 06/21/24 0820 Acid Condenser: NITZA XR forearm RT 2V Reviewed date:06/21/2024 11:47:38 AM Interpretation: Performing Lab: Notes/Report: [address] [address] XRay Report Signed Patient: Abdiel Null MR#: [id number] 53 : 1960 Acct:[id number] Age/Sex: 64 / M ADM Date: 06/21/24 Loc: HO.ED Attending Dr: Ordering Physician: Kalli Norwood Date of Service: 06/21/24 Procedure(s): XR forearm RT 2V Accession Number(s): [id number] cc: Denys Christianson MD; Kalli Norwood EXAMINATION: [...] by: Nathaniel Vargas MD 06/21/2024 10:58 AM [facility] Dictated By: Nathaniel Vargas MD Signed By: <Electronically signed by Nathaniel Vargas MD in OV> 06/21/24 1058 DD/ 0802 TD/TT: 06/21/24 0820 Acid Condenser: [place] [address] XRay Report Signed Patient: Ted Null MR#: [id number] 53 : 1960 Acct:[id number] Age/Sex: 64 / M ADM Date: 06/21/24 Loc: HO.ED Attending Dr: Ordering Physician: Kalli Norwood Date of Service: 06/21/24 Procedure(s): XR for earm RT 2V Accession Number(s): [id number] cc: Denys Christianson MD; Kalli Norwood EXAMINATION: [...] by: Nathaniel Vargas MD 06/21/2024 10:58 AM [facility] Dictated By: Nathaniel Vargas MD Signed By: <Electronically signed by Nathaniel Vargas MD in OV> 06/21/24 1058 DD/ 0802 TD/TT: 06/21/24 0820 Acid Condenser: NITZA MR elbow RT wo con Reviewed date:07/04/2024 04:02:43 PM Interpretation: Performing Lab: Notes/Report: [address] [address] Magnetic Resonance Report Signed Patient: Abdiel Null MR#: [id number] 53 : 1960 Acct:[id number] Age/Sex: 64 / M ADM Date: 07/04/24 Loc: HO.MRI Attending Dr: Priscilla Ho PA-C Ordering Physician: Priscilla Ho PA-C Date of Service: 07/04/24 Procedure(s): MR elbow RT wo con Accession Number(s): [id number] cc: Denys Christianson MD; Priscilla Ho PA-C [...] by: Chemo Borrero MD 07/04/2024 01:46 PM [facility] Dictated By: Chemo Borrero MD Signed By: <Electronically signed by Chemo Borrero MD in OV> 07/04/24 1346 DD/ 1018 TD/TT: 07/04/24 1110 Acid Condenser: GUANAKO [address] [address] Magnetic Resonance Report Signed Patient: Ted Null MR#: [id number] 53 : 1960 Acct:[id number] Age/Sex: 64 / M ADM Date: 07/04/24 Loc: HO.MRI Attending Dr: Georgiana Ho PA-C Ordering Physician: Priscilla Ho PA-C Date of Service: 07/04/24 Procedure(s): MR cristobal ow RT wo con Accession Number(s): [id number] cc: Denys Christianson MD; Priscilla Ho PA-C [...] by: Chemo Borrero MD 07/04/2024 01:46 PM [facility] Dictated By: Chemo Borrero MD Signed By: <Electronically signed by Chemo Borrero MD in OV> 07/04/24 1346 DD/ 1018 TD/TT: 07/04/24 1110 Acid Condenser: GUANAKO Reason For Referral No Information Medications Medication SIG (Take, Route, Frequency, Duration) Notes Start Date End Date Status Escitalopram Oxalate 20 MG TAKE 1 TABLET BY MOUTH EVERY DAY Orally Once a day for 90 days Active Immunizations Vaccine Route Administration Date Status [...] 150 IM Intramuscular 04/28/2024 Administered Fluarix Quadrivalent - 150 IM Intramuscular 05/11/2025 Administered Fluarix Quadrivalent Unknown 07/31/2016 Refused Fluarix [...] Problem Status W/U Status Risk Notes Problem 213782101 Thrombocytopenia (D69.6) Active confirmed Problem 097658578 Abnormal results of liver function studies (R94.5) Active confirmed Problem 744003590 Tubular adenoma of colon (D12.6) Active confirmed Problem 3640662 Prediabetes (R73.09) Active confirmed Problem 05616060882339721 History of smo melyssa (Z87.898) Active confirmed Problem 416904645 Food allergy (Z91.018) Active confirmed Problem Meralgia paresthetica (22673199) Meralgia paraesthetica, right (G57.11) Active confirmed Problem Qualitative platelet disorder (268618023) Abnormal platelets (D69.1) Active confirmed Problem 858757138 Anxiety attack (F41.0) Active confirmed Vital Signs [...] Location Date Provider Diagnosis Denys Christianson MD [address] [place] [address] Drive [address] [place] [phone] 05/11/2025 Denys Christianson Blood tests for rout ine general physical examination Z00.00 ; Prediabetes R73.09 ; Thrombocytopenia D69.6 and Encounter for administration of vaccine Z23 Denys Christianson MD [address] [place] [address] Drive [address] [place] [phone] 05/15/2024 Denys Christianson Abnormal platelets D69.1 ; Annual physical exam Z00.00 ; Prediabetes R73.09 ; Colon cancer screening Z12.11 and Depression screening Z13.31 Denys Christianson MD [address] [place] [phone] 06/22/2024 Denys Christianson MD [address] [place] [address] [address] [place] [phone] 02/16/2025 Denys Christianson Assessments Encounter Date Diagnosis (ICD Code) Assessment Notes Treatment Notes Treatment Clinical Notes Section Notes 05/11/2025 Blood tests for routine general physical examination (ICD-10 - Z00.00) 05/11/2025 Prediabetes (ICD-10 - R73.09) 05/15/2024 Abnormal platelets (ICD-10 - D69.1) has resolved 05/15/2024 Annual physical exam (ICD-10 - Z00.00) labs reviewed and discussed with patient 05/11/2025 Thrombocytopenia (ICD-10 - D69.6) 05/15/2024 Prediabetes (ICD-10 - R73.09) have advised to get back on diet and stop drinking 05/11/2025 Encounter for administration of vaccine (ICD-10 - Z23) 05/15/2024 Colon cancer screening (ICD-10 - Z12.11) guaiac negative 05/15/2024 Depression screening (ICD-10 - Z13.31) negative screen Plan Of Treatment Pending Test Test Name Order Date Electrocardiogram (EKG) 10/24/2017 Electrocardiogram (EKG) 09/08/2015 Complete Blood Count Auto Diff 5 Comprehensive [place]. Panel Fast Lipid Panel 05/11/2025 PSA,Total (Free>4and<10) 05/11/2025 Microalbumin, Random 05/11/2025 Hemoglobin A1c 05/11/2025 UA ClnCatch+Micro w/rflx Cult 05/11/2025 Next Appt Details Provider Name:Denys birminghamr, 05/18/2025 08:30:00 AM, [address] [place] [address], [address], [place], [place], [phone], Insurance Providers Payer Name Payer Address Payer Phone Subscriber Number Group Number Insured Name Patient Relationship to Insured Coverage Start Date Coverage End Date [employer] [address] [place], [place] [phone] [id number] Abdiel Null Self - patient is the insured Medical (General) History Medical History History ICD Code Colonoscopy 12/25/[address] Casper, had colonoscopy 03/12/19 repeat in 5 years02/24/24 repeat 5y
--- OUTSIDE RECORDS SUMMARY | 2025-05-11 12:15 | XMS_ITS | Encounter Summary ---
Author Organization [facility] Address [address] [place] [phone] Phone Care Team Providers Care Drapery Worker Name Role Phone Denys Chirstianson MD Primary Care Provider Encounter Details Date Type Department Care Team (Late st Contact Info) Description 09/27/2021 Procedure [facility], [address] [address] Social History Tobacco Use Types Packs/Day Years Used Date Smoking Tobacco: Former Smokeless Tobacco: Never Comments:12 years ago Sex and Gender Information Value Date Recorded Sex Assigned at Not on file Legal Sex Male 6:55 PM EST Gender Identity Not on file Sexual Orientation Not on file documented as of this encounter Plan of Treatment Not on file documented as of this encounter Visit Diagnoses Not on filedocumented in this encounter Care Teams Drapery Worker Relationship Specialty Start Date End Date Denys Christianson MD [address] [place] [address] [place] [address] PCP - General Internal Medicine 09/11/21 documented as of this encounter Additional Source Comments The information contained in this document represents components of the legal health record. It is not the complete legal health record.[facility]
--- OUTSIDE RECORDS SUMMARY | 2025-05-11 12:15 | XMS_ITS | Clinical Summary ---
Author Organization [facility] Address [address] [facility] [address] [place] [address] Phone Care Team Providers Care Canoe Builder Name Role Phone Denys Christianson MD Primary Care Provider Allergies No known active allergies Medications naproxen (NAPROSYN) 500 MG tablet Take 1 tablet (500 mg total) by mouth 2 (two) times a day with meals. 20 tablet Active Additional Information Patient not taking.Reported on 04/22/2025 EPINEPHrine 0.3 mg/0.3 mL auto-injector Inject 0.3 mg into the muscle as needed for anaphylaxis. Active escitalopram oxalate (LEXAPRO) 20 MG tablet Take 1 tablet by mouth every morning. Active Active Problems No known active problems Encounters Date Type Department Care Team Description 04/22/2025 10:00 AM EDT Office Visit [facility] at [address] [address] Janet Waldron, ASAEL Acute nasopharyngitis (common cold) (Primary Dx) from Last 3 Months Immunizations Immunization Administration Dates Next Due COVID-19 (Pre-05/06) Pfizer Vaccine Ped 5-11 01/2021,10/28/2020 Social History Tobacco Use Types Packs/Day Years Used Date Smoking Tobacco: Former Smokeless Tobacco: Never Comments:12 years ago Education Answer Date Recorded Are you interested in more education? Not on tomas e 11/10/2022 Are you concerned about learning? Not on file 11/10/2022 No 11/10/2022 No 11/10/2022 Digital Access Answer Date Recorded No 12/09/2022 No 12/09/2022 Reliable internet access at home? Not on file 12/09/2022 Device with a working camera? Not on file Sex and Gender Information Value Date Recorded Sex Assigned at Not on file Legal Sex Male 6:55 PM EST Gender Identity Not on file Sexual Orientation Not on file Last Filed Vital Signs Vital Sign Reading Time Taken Comments Blood Pressure 135/84 04/22/2025 10:03 AM EDT Pulse 85 04/22/2025 10:03 AM EDT Temperature 36.4 C (97.6 F) 04/22/2025 10:03 AM EDT Respiratory Rate 98 04/22/2025 10:03 AM EDT Oxygen Saturation 99% 04/22/2025 10:03 AM EDT Inhaled Oxygen Concentration - - Weight 83.9 kg (185 lb) 10/10/2021 3:06 PM EDT Height 172.7 cm (5' 8 ) 10/10/2021 3:06 PM EDT Body Mass Index 28.13 10/10/2021 3:06 PM EDT Plan of Treatment Health Maintenance Due Date Last Done Comments LIPID PANEL 1960 DEPRESSION SCREENING 1974 SMOKING Hx and SMOKELESS TOBACCO SCREENING 1975 HEPATITIS C SCREENING 1980 HIV ONE-TIME SCREENING (18-65 YEARS) 1980 COLOGUARD 2007 COLONOSCOPY 2007 COLORECTAL CANCER SCREENING 2007 FIT TEST 2007 FOBT 2007 SIGMOIDOSCOPY 2007 VIRTUAL COLONOSCOPY 2007 PNEUMOCOCCAL VACCINES (50+ years) (1 of 1 - PCV) 2012 ZOSTER VACCINES (1 of 2) 2012 INFLUENZA VACCINE (#1) 2025 , 04/26/2023, 04/05/2022, Additional history exists COVID-19 VACCINE (3 - season) 2025 11/18/2020, 11/18/2020, 10/28/2020, Additional history exists Adult Td,Tdap Booster 08/11/2028 08/11/2018, 019 RSV VACCINE (1 - 1-dose 75+ series) 2037 HEPATITIS A VACCINES Aged Out No long er eligible based on patient's age to complete this topic HIB VACCINES Aged Out No longer eligi ble based on patient's age to complete this topic MENINGOCOCCAL VACCINES (ACWY) Aged Out No longer eligible based on patient's age to complete this topic MENINGOCOCCAL VACCINES (B) Aged Out N o longer eligible based on patient's age to complete this topic Medical Devices Not on [place] [address] [place] [address] [place] [address] [place] [address] [place] [address] [place] [address] [place] [address] [place] [address] [facility] Care Teams Canoe Builder Relationship Specialty Start Date End Date Denys Christianson MD [address] [place] [address] [place] [address] PCP - General Internal Medicine 09/11/21 Additional Source Comments The information contained in this document represents components of the legal health record. It is not the complete legal health record.[facility]
== END 2025-05-11 08:01 | disposition home or self-care (01) ==
LOC: HO.LNP 08:00
PROVIDERS: Visit Provider Internal Medicine
DX: Z00.00 Encounter for general adult medical examination without abnormal findings (principal); Z12.5 Encounter for screening for malignant neoplasm of prostate; Z13.6 Encounter for screening for cardiovascular disorders; R73.09 Other abnormal glucose; D69.6 Thrombocytopenia, unspecified
CPT/HCPCS: 80053; 80061; 83036; 84153; 85025

== ENCOUNTER 2025-05-18 10:42 | Outpatient (REF) | payer OTHER, SELFPAY ==
--- OUTSIDE RECORDS SUMMARY | 2024-02-24 02:30 | XMS_ITS ---
Author Organization [facility] Address [address] [place] [address] Care Team Providers Care Public Works Director Name Role Phone Denys Christianson MD Primary Care Provider UnaKarma Mcdermott Unavailable [phone] REASON FOR VISIT screening,hx polyps Problems Problem Type SNOMED Code ICD Code Onset Dates Problem Status W/U Status Risk Notes Problem History of polyp of colon (situation) (926015039) Personal history of colonic polyps (Z86.010) Active confirmed Problem Diverticular disease of colon (584885820) Diverticulosis of large intestine without perforation or abscess without bleeding (K57.30) Active confirmed Encounters Encounter Location Date Provider Diagnosis [facility] Outpatient [address] [place] [phone] 02/24/2024 Karma Casper Encounter for scre ening colonoscopy Z12.11 ; Personal history of colonic polyps Z86.010 ; Diverticulosis of large intestine without perforation or abscess without bleeding K57.30 and Other hemorrhoids K64.8 Assessments Encounter Date Diagnosis (ICD Code) Assessment Notes Treatment Notes Treatment Clinical Notes Section Notes 02/24/2024 Encounter for screening colonoscopy (ICD-10 - Z12.11) 02/24/2024 Personal history of colonic polyps (ICD-10 - Z86.010) 02/24/2024 Diverticulosis of large intestine without perforation or abscess without bleeding (ICD-10 - K57.30) 02/24/2024 Other hemorrhoids (ICD-10 - K64.8) Plan Of Treatment No Information Progress Notes * KARMA NULL ADOB: 2 (65 yo M)Acc No.[id number]:02/24/2024 COLON WITH MAC Patient: KARMA PANDA Provider: Abdifatah Casper MD :1960 A ge:63 Y S ex:Male Date:02/24/2024 Address:[address] [place], [place] [address] Pcp:Denys Christianson MD Subjective: * Chief Complaints: * 1 . Screening,hx polyps. * Medical History: Objective: * Vitals: Assessment: * Assessment: 1. E ncounter for screening colonoscopy - Z12.11 (Primary) 2 . P ersonal history of colonic polyps - Z86.010 3 . D iverticulosis of large intestine without perforation or abscess without bleeding - K57.30 4 . O ther hemorrhoids - K64.8? Plan: * Treatment: * Procedure Codes: 4 5378 DIAGNOSTIC COLONOSCOPY, Modifiers: 33 * Preventive Medicine: PATRICIA Screening: C olonoscopy W as interval between colonoscopies three years or more? Y es, W as last colonoscopy performed three or more years ago? Y es. * * The named appointment provid er may or may not be the originator of this progress note, and it is not deemed complete until electronically signed by the appointment provider. Sign off status: Pending * Provider: Abdifatah Casper MD Date: 0 02/24/2024 Generated for Shlomo cabrales/Kristen/Juanransmitting on: 1 07/18/2024 12:45 PM EST
--- OUTSIDE RECORDS SUMMARY | 2024-04-28 02:15 | XMS_ITS ---
Author Organization Denys Christianson MD Address [address] [place], [place] [phone] Care Team Providers Care Construction Equipment Mechanic Helper Name Role Phone Denys Christianson Primary Care Provider [phone] Results Component Value Reference Range Notes Complete Blood Count Auto Di ff Reviewed date:04/30/2024 09:27:57 PM Interpretation: Performing Lab:[facility], [address] [place] [phone] Notes/Report: White Blood Count 6.6 4.8-10.8 X10*3/uL Red Blood Count 5.40 4.60-5.80 X10*6/uL Hemoglobin 16.2 14.0-18.0 g/dl Hematocrit 48.2 42.0-52.0 % Mean Corpuscular Volume 89.3 80.0-98.0 fL Mean Corpuscular Hemoglobin 30.0 27.0-33.0 pg Mean Corpuscular HGB Conc 33.6 31.0-36.0 g/dl Red Cell Distribution Width 13.5 11.0-16.0 % Platelet Count 166 160-400 X10*3/uL Mean Platelet Volume 9.9 9.4-12.4 fL Neutrophils Percent Auto 51.3 45-73 % Imm Gran Pct Auto 0.6 0.0-0.4 % Lymphocytes Percent Auto 32.9 20-40 % Monocytes Percent Auto 10.2 2-11 % Eosinophils Percent Auto 4.2 0-4 % Basophils Percent Auto 0.8 0-2 % NRBC Pct Auto 0.0 0.0-0.2 /100WBC Neutrophils Absolute Auto 3.4 2.0-8.3 x10*3/u L Imm Gran Abs Auto 0.04 0.00-0.03 X10*3/uL Lymphocytes Absolute Auto 2.2 1.2-4.9 X10*3/u L Monocytes Absolute Auto 0.7 0.1-1.2 X10*3/uL Eosinophils Absolute Auto 0.3 0.0-0.4 X10*3/u L Basophils Absolute Auto 0.1 0.0-0.2 X10*3/uL NRBC Abs Auto 0.000 0.0-0.012 X10*3/uL Comprehensive [place]. Panel Fa st Reviewed date:04/30/2024 09:27:30 PM Interpretation: Performing Lab:[facility], [address] [place] [phone] Notes/Report: Sodium 141 135-145 mmol/L Potassium 4.6 3.3-5.1 mmol/L Chloride 107 96-108 mmol/L Carbon Dioxide 28 22-29 mmol/L Anion Gap 11 12-20 Blood Urea Nitrogen 17 9-16 mg/dL Creatinine 1.33 0.5-1.4 mg/dL Estimated Glomerular Filt Rate 54 NOTE: For -Chilean individuals, multiply the result by 1.210. Chronic Kidney Disease: Estimated GFR < 60 mL/min/1.73m2 Severe Kidney Disease: Estimated GFR < 15 mL/min/1.73m2 Glucose Fasting 146 60-99 mg/dL A fasting glucose of 126 mg/dl or greater on more than one occasion is considered diagnostic of diabetes. Calcium 9.3 8.4-10.2 mg/dL Bilirubin Total 0.5 0.0-1.0 mg/dL Aspartate Amino Transferase 19 5-37 U/L Alanine Aminotransferase 22 0-40 U/L Total Protein 7.5 6.5-8.0 g/dL Albumin Level 4.1 3.5-5.0 g/dL Alkaline Phosphatase 71 39-117 U/L Lipid Panel Reviewed date:04/29/2024 06:41:08 PM Interpretation: Performing Lab:[facility], [address] [place] [phone] Notes/Report: Triglycerides 163 <150 mg/dL Desirable Triglyceride: less than 150 mg/dL Borderline High Triglyceride 150-199 mg/dL High Triglyceride: 200-499 mg/dL Very High Triglyceride: greater than or equal to 5OO mg/dL Cholesterol 204 <200 mg/dL Desirable Cholesterol: less than 200 mg/dL Borderline High Cholesterol: 200-239 mg/dL High Cholesterol: greater than 239 mg/dL LDL Cholesterol Calculated 123 <100 mg/dL Desirable LDL: less than 100 mg/dL Near Optimal/Above Optimal LDL: 110-129 mg/dL Borderline High LDL: 130-159 mg/dL High LDL: 160-189 mg/dL Very High LDL: greater than or equal to 190 mg/dL HDL Cholesterol 49 >40 mg/dL Desirable HDL: greater than 40 mg/dL Note: This HDL assay may give artificially low results in patients with liver disease. PSA,Total (Free>4and<10) Reviewed date:04/29/2024 06:41:57 PM Interpretation: Performing Lab:[facility], [address] [place] [phone] Notes/Report: PSA,Total (Free>4and<10) 0.25 0.00-4.00 ng/mL A Free PSA was not performed: The percentage of Free PSA can be used to enhance the differentiation of prostate cancer from benign prostatic disease in subjects whose PSA levels are between 4.0 and 10.0 ng/mL. For subjects whose PSA levels are below 4.0 or above 10.0 ng/mL, the risk of prostate cancer is determined on the basis of the PSA alone. Therefore the % Free PSA is recommended only for those subjects whose PSA levels are between 4.0 and 10.0 ng/mL. PSA methodology: Cortez Alinity i Chemiluminescent Microparticle Immunoassay (CMIA) Microalbumin, Random Reviewed date:04/29/2024 06:42:55 PM Interpretation: Performing Lab:[facility], [address] [place] [phone] Notes/Report: Creatinine Urine 316.91 Microalbumin Urine 11.0 Microalbum/Creatinine Ratio Ur 3.4 <30 ug/mg cr Albumin/Creatinine Ratio Reference Ranges: Normal: < 30 ug/mg creatinine Microalbuminuria: 30 - 300 ug/mg creatinine Clinical Albuminuria: > 300 ug/mg creatinine Hemoglobin A1c Reviewed date:04/29/2024 06:41:49 PM Interpretation: Performing Lab:[facility], [address] [place] [phone] Notes/Report: Hemoglobin A1c % 5.6 <6.0 % Hemoglobin A1C Reference Range Adults: 4.8 - 6.0 % Non diabetic: < 6.0 % Goal: < 7.0 % Additional Action Suggested: > 8.0 % Note: Hemoglobin A1c results are invalid for patients with abnormal amounts of HbF. Blood transfusions may impact the HbA1c concentration in the patient sample. Estimated Average Glucose 114 eAG = Estimated average glucose which is %A1C expressed as average glucose, using the formula of the B4F-Goykglw Average Glucose study (ADAG), Diabetes Care, Vol.31,#8, Feb. 2007 UA ClnCatch+Micro w/rflx Cul t Reviewed date:04/29/2024 06:51:27 PM Interpretation: Performing Lab:[facility], [address] [place] [phone] Notes/Report: Urine, Clean Catch Color Urine Yellow Appearance Urine Clear PH 5.5 5.0-9.0 Glucose Urine UA Negative Negative mg/dL Urine Blood Negative Negative Specific [place] - Urine 1.025 1.005-1.025 Urine Protein Negative Neg-Trace mg/dL Urine Ketones Negative Negative mg/dL Nitrite Urine Negative Negative Leukocyte Esterase Urine Negative Negative RBC Urine 0-2 0-2 /HPF WBC Urine 0-5 0-5 /HPF Squamous Epithelial Cell Urine 0-2 0-2 /HPF Bacteria Urine None Seen None Seen Hyaline Casts Urine 0-2 0-2 /LPF REASON FOR VISIT yearly fasting labs Immunizations Vaccine Route Administration Date Status Comme nts Fluarix Quadrivalent - 150 IM Intramuscular 04/28/2024 Adm inistered Encounters Encounter Location Date Provider Diagnosis Denys Christianson MD [address] [place], [place] [phone] 04/28/2024 Denys Christianson Blood tests for rout ine general physical examination Z00.00 ; Prediabetes R73.09 ; Thrombocytopenia D69.6 and Encounter for immunization Z23 Assessments Encounter Date Diagnosis (ICD Code) Assessment Notes Treatment Notes Treatment Clinical Notes Section Notes 04/28/2024 Blood tests for routine general physical examination (ICD-10 - Z00.00) 04/28/2024 Prediabetes (ICD-10 - R73.09) 04/28/2024 Thrombocytopenia (ICD-10 - D69.6) 04/28/2024 Encounter for immunization (ICD-10 - Z23) Plan Of Treatment Next Appt Details Provider Name:Denys Claudio ier, 11/15/2025 08:45:00 AM, [address] [place] [address], Suite [facility], [place], [place], [phone], Provider Name:Denys birminghamr, 05/16/2026 07:00:00 AM, [address] [place] [address], Suite [facility], [place], [place], [phone], Provider Name:Denys Claudio ier, 05/23/2026 08:30:00 AM, [address] [place] [address], Suite [facility], [place], [place], [phone], Progress Notes * Abdiel NULL ADOB: 2 (64 yo M)Acc No.[id number]:04/28/2024 Progress Note Patient: Abdiel Mora Provider: Jasmyne Christianson MD :1960 A ge:64 Y S ex:Male Date:04/28/2024 Address:[address] [place], [place] [phone] Subjective: * Chief Complaints: * Y early fasting labs * Medical History: * Surgical History: * Hospitalization/Major Diagno stic Procedure: * Medications: Objective: Assessment: * Assessment: 1. B lood tests for routine general physical examination - Z00.00 (Primary) 2 . P rediabetes - R73.09 3 . T hrombocytopenia - D69.6 4 . E ncounter for immunization - Z23? Plan: * Treatment: 2. P rediabetes L AB: Complete Blood Count Auto Diff L AB: Comprehensive [place]. Panel Fast L AB: Lipid Panel L AB: PSA,Total (Free>4and<10) L AB: Microalbumin, Random L AB: Hemoglobin A1c L AB: UA ClnCatch+Micro w/rflx Cult 3. T hrombocytopenia L AB: Complete Blood Count Auto Diff L AB: Comprehensive [place]. Panel Fast L AB: Lipid Panel L AB: PSA,Total (Free>4and<10) L AB: Microalbumin, Random L AB: Hemoglobin A1c L AB: UA ClnCatch+Micro w/rflx Cult * Immunizations: Fluarix Quadrivalent - 150 : 0.5 mL (Dose No:1) (Route: Intramuscular) given by Georgina Holt on Left Deltoid * Procedure Codes: 3 6415 VENIPUNCT, ROUTINE*98398 FLU VACCINE NO PRESERV 3 & >72432 IMMUNIZATION ADMIN * * Sign off status: Completed true * Provider: Jasmyne Christianson MD Date: Generated for Shlomo cabrales/Kristen/Darnellitting on: 07/18/2024 12:44 PM EST
--- OUTSIDE RECORDS SUMMARY | 2024-05-15 03:30 | XMS_ITS ---
Author Organization Denys Christianson MD Address [address] [place], [place] [id number] Care Team Providers Care Environmental Epidemiologist Name Role Phone Denys Christianson Primary Care Provider [phone] Allergies Allergen (clinical drug ingredient) Drug/Non Drug Allergy documented on EMR Reaction Allergy Type Onset Date Status bees (uncoded) body swelling Allergy A ctive Results Component Value Reference Range Notes Occult Blood, Stool, Guaiac Reviewed date:05/15/2024 01:36:03 PM Interpretation:Negative Performing Lab: Notes/Report: Negative Occult Blood, Stool, Guaiac Neg REASON FOR VISIT annual visit Medications Medication SIG (Take, Route, Frequency, Duration) Notes Start Date End Date Status Escitalopram Oxalate 20 MG TAKE 1 TABLET BY MOUTH EVERY DAY for 90 Active Social History Tobacco Use: Social History Observation Description Date Details (start date - stop date) Former Smoker NA - NA Tobacco Use/Smoking Question Answer Notes Patient is a former smoker How long has it been since y ou last smoked? 5-10 years Additional Findings: Tobacco Non-User Fo rmer smoker, currently using no form of tobacco Alcohol Screen Question Answer Notes Did you have a drink contain ing alcohol in the past year? Yes How often did you have a dri nk containing alcohol in the past year? 2 to 4 times a month (2 points) How many drinks did you have on a typical day when you were drinking in the past year? 1 or 2 drinks (0 point) How often did you have 6 or more drinks on one occasion in the past year? Never (0 point) Points 2 Interpretation Negative Vital Signs Blood pressure systolic 142 mm Hg 05/15/20 24 Blood pressure diastolic 78 mm Hg 024 Height 67.5 in 05/15/2024 Weight 216 lbs 05/15/2024 BMI 33.33 kg/m2 05/15/2024 weight is up 7 pounds since 05-03-23 Encounters Encounter Location Date Provider Diagnosis Denys Christianson MD [address] [place] [address] [address] [place], [place] [phone] 05/15/2024 Denys Christianson Abnormal platelets D69.1 ; Annual physical exam Z00.00 ; Prediabetes R73.09 ; Colon cancer screening Z12.11 and Depression screening Z13.31 Assessments Encounter Date Diagnosis (ICD Code) Assessment Notes Treatment Notes Treatment Clinical Notes Section Notes 05/15/2024 Abnormal platelets (ICD-10 - D69.1) has resolved 05/15/2024 Annual physical exam (ICD-10 - Z00.00) labs reviewed and discussed with patient 05/15/2024 Prediabetes (ICD-10 - R73.09) have advised to get back on diet and stop drinking 05/15/2024 Colon cancer screening (ICD-10 - Z12.11) guaiac negative 05/15/2024 Depression screening (ICD-10 - Z13.31) negative screen Plan Of Treatment Treatment Notes Assessment Notes Abnormal platelets has resolved Annual physical exam labs reviewed and d iscussed with patient Prediabetes have advised to get back on diet and stop drinking Colon cancer screening guaiac negative Depression screening negative screen Next Appt Details Follow Up: 1 Year, Reason: Provider Name:Denys figueroa, 11/15/2025 08:45:00 AM, [address] [place] [address], [address], [place], [place], [id number], Provider Name:Denys figueroa, 05/16/2026 07:00:00 AM, [address] [place] [address], [facility] [address], [place], [place], [phone], Provider Name:Denys Claudio ier, 05/23/2026 08:30:00 AM, [address], [address], [place], [place], [phone], Progress Notes * Abdiel NULL ADOB: [birth year] (64 yo M)Acc No.[id number]:05/15/2024 Progress Notes Patient: Abdiel Mora Provider: Jasmyne Christianson MD :1960 A ge:64 Y S ex:Male Date:05/15/2024 Address:[address] [place], [place] [id number] Subjective: * Chief Complaints: * A nnual visit * HPI: D epression Screening: PHQ-9 L ittle interest or pleasure in doing things N ot at all, F eeling down, depressed, or hopeless N ot at all, T rouble falling or staying asleep, or sleeping too much N ot at all, F eeling tired or having little energy N ot at all, P oor appetite or overeating N ot at all, F eeling bad about yourself or that you are a failure, or have let yourself or your family down N ot at all, T rouble concentrating on things, such as reading the newspaper or watching television N ot at all, M oving or speaking so slowly that other people could have noticed; or the opposite, being so fidgety or restless that you have been moving around a lot more than usual N ot at all, T houghts that you would be better off or of hurting yourself in some way N ot at all, T otal Score 0 . I nterpretation and Intervention D epression Screening Findings N egative, F ollow-Up for Depression : review of PHQ-9 found negative result, no follow-up needed. C ommunication Needs: Communication Needs D oes the patient have a hearing impairment N o, D oes the patient have a vision impairment? Y es, I f yes, what is the vision impairment? G lasses, D oes the patient have a cognition impairment? N o. S REBEL Questions: SDOH Questions I n the past year have you been worried about losing housing? N o, I n the past year have you or any family members you live with been unable to get any of the following when it was really needed? Check all that apply: N one. S ymptom(s): patient is a 64 yo male here for annual visit with review of recent labs and follow up of chronic issues. * ROS: G eneral/Constitutional: Change in appetite d enies. C hills d enies. F ever d enies. O phthalmologic: Blurred vision d enies. D ischarge d enies. P ain d enies. E NT: Decreased hearing d enies. S ore throat d enies.?Swollen glands d enies. E ndocrine: Cold intolerance d enies. E xcessive thirst d enies. H eat intolerance d enies. W eight loss d enies. R espiratory: Cough d enies. S hortness of breath at rest d enies. S hortness of breath with exertion d enies. W heezing d enies. C ardiovascular: Chest pain at rest d enies. C hest pain with exertion?denies. I rregular heartbeat d enies. S hortness of breath d enies. ? G astrointestinal: Abdominal pain d enies. C hange in bowel habits d enies. D iarrhea d enies. N ausea d enies. R ectal bleeding d enies. V omiting d enies . G enitourinary: Blood in urine d enies. D ifficulty urinating d enies. F requent urination d enies. M usculoskeletal: Painful joints d enies. W eakness d enies. ? S kin: Dry skin d enies. I tching d enies. D enies?Mole(s), changes in moles, new moles or any lesions of concern. D enies P hotosensitivity. R el d enies. N eurologic: Dizziness d enies. F ainting d enies. H eadache?denies. * Medical History: * Surgical History: * Hospitalization/Major Diagno stic Procedure: * Family History: F ather: 74 yrs, lung cancer. M other: 74 yrs, brain cancer. 2 brother(s) , 5 sister(s) . . sister brother dad alcohol and medication no mental illnss, Denies mental health father and sisiter alcolic, Denies mental health/substance abuse family history, No pertinent family medical history. * Social History: T obacco Use: T obacco Use/Smoking P atient is a f ormer smoker, H ow long has it been since you last smoked? 5 -10 years, A dditional Findings: Tobacco Non-User F ormer smoker, currently using no form of tobacco. D rugs/Alcohol: A lcohol Screen D id you have a drink containing alcohol in the past year? Y es, H ow often did you have a drink containing alcohol in the past year? 2 to 4 times a month (2 points), H ow many drinks did you have on a typical day when you were drinking in the past year? 1 or 2 drinks (0 point), H ow often did you have 6 or more drinks on one occasion in the past year? N ever (0 point), P oints 2 , I nterpretation N egative. M iscellaneous: C affeine: yes, frequency:, 1-2 cups per day. Children: yes. no Community involvements. no Exercise. Housing: owning. Living with: spouse. Marital status: . Occupation: works full-time. Pets: dogs. no Travel outside of the [place]. * Medications: T akingEscitalopram Oxalate 20 MG Tablet TAKE 1 TABLET BY MOUTH EVERY DAY Medication List reviewed and reconciled with the patientTaking Escitalopram Oxalate 20 MG Tablet TAKE 1 TABLET BY MOUTH EVERY DAY Medication List reviewed and reconciled with the patient * Allergies: b ees: body swellingyes[Allergies Verified] Objective: * Vitals: H t: 67.5, Wt:216, BMI:33.33, BP:142/78, Repeat BP:115/82 weight is up 7 pounds since 05-03-23. * P ast Orders: L ab:Lipid Panel (Order Date - 04/28/2024) (Collection Date - 04/28/2024) Value Reference Range Triglycerides 163 H <150 - mg/dL Cholesterol 204 H <200 - mg/dL LDL Cholesterol Calculated 123 H <100 - mg/dL HDL Cholesterol 49 >40 - mg/dL L ab:PSA,Total (Free>4and<10) (Order Date - 04/28/2024) (Collection Date - 04/28/2024) Value Reference Range PSA,Total (Free>4and<10) 0.25 0.00-4.00 - ng/ mL L ab:Microalbumin, Random (Order Date - 04/28/2024) (Collection Date - 04/28/2024) Value Reference Range Creatinine Urine 316.91 - mg/dL Microalbumin Urine 11.0 - mg/L Microalbum Creatinine Ratio Ur 3.4 <30 - ug/ mg cr L ab:Hemoglobin A1c (Order Date - 04/28/2024) (Collection Date - 04/28/2024) Value Reference Range Hemoglobin A1c % 5.6 <6.0 - % Estimated Average Glucose 114 - mg/dL L ab:UA ClnCatch+Micro w/rflx Cult (Order Date - 04/28/2024) (Collection Date - 04/28/2024) Value Reference Range Color Urine Yellow - Appearance Urine Clear - PH 5.5 5.0-9.0 - Glucose Urine UA Negative Negative - mg/dL Urine Blood Negative Negative - Specific [place] - Urine 1.025 1.005-1.025 - Urine Protein Negative Neg-Trace - mg/dL Urine Ketones Negative Negative - mg/dL Nitrite Urine Negative Negative - Leukocyte Esterase Urine Negative Negative - RBC Urine 0-2 0-2 - /HPF WBC Urine 0-5 0-5 - /HPF Squamous Epithelial Cell Urine 0-2 0-2 - /HP F Bacteria Urine None Seen None Seen - Hyaline Casts Urine 0-2 0-2 - /LPF * Examination: G eneral Examination: GENERAL APPEARANCE: w ell developed, well nourished, in no acute distress. HEAD: n ormocephalic, atraumatic. EYES: p upils equal, round, reactive to light and accommodation, sclera non-icteric. EARS: n ormal. ORAL CAVITY: m ucosa moist. THROAT: c lear. NECK/THYROID: n patricia supple, full range of motion, no cervical lymphadenopathy, no bruits. SKIN: w arm and dry, no suspicious lesions. HEART: r egular rate and rhythm, S1, S2 normal, no murmurs.? LUNGS: c lear to auscultation bilaterally. ABDOMEN: s oft, nontender, nondistended, bowel sounds present, normal, no organomegaly , no masses palpable. RECTAL EXAM: n ormal tone, no external hemorrhoids, no masses palpable, prostate normal, stool guaiac negative. MALE GENITOURINARY: u ncircumcised , no testicular mass , testes descended bilaterally. EXTREMITIES: n o clubbing, cyanosis, or edema. NEUROLOGIC: n onfocal, motor strength normal upper and lower extremities, sensory exam intact. Assessment: * Assessment: 1. A nnual physical exam - Z00.00 (Primary) 2 . A bnormal platelets - D69.1 3 .?Prediabetes - R73.09 4 . C olon cancer screening - Z12.11 5 . D epression screening - Z13.31 Plan: * Treatment: 2. A bnormal platelets Notes: has resolved 3. P rediabetes Notes: have advised to get back on diet and stop drinking 4. C olon cancer screening L AB: Occult Blood, Stool, Guaiac N egative Value Reference Range O ccult Blood, Stool, Guaiac Neg Notes: guaiac negative??5.?Depression screening? Notes: negative screen?? * Procedure Codes: 8 2270 TEST FOR BLOOD, FECES * Preventive Medicine: Counseling: C are goal follow-up plan: C ounseling for abnormal BMI provided?Yes, A grace Normal BMI Follow-up G chitra encouragement to exercise. * Follow Up: 1 Year * * Sign off status: Completed true * Provider: Jasmyne Christianson MD Date: 07/15/2023 Generated for Shlomo cabrales/Kristen/Juanransmitting on: 07/18/2024 12:45 PM EST History and Physical Notes * HPI (History of Present Illness) Category Sub-Category Detail Notes Category Not es Symptom(s) patient is a 64 yo male here for annual visit with review of recent labs and follow up of chronic issues. Depression Screening PHQ-9 Little inte rest or pleasure in doing things: Not at all Feeling down, depressed, or hopeless: No t at all Trouble falling or staying asleep, or sl eeping too much: Not at all Feeling tired or having little energy: N ot at all Poor appetite or overeating: Not at all Feeling bad about yourself o r that you are a failure, or have let yourself or your family down: Not at all Trouble concentrating on thi ngs, such as reading the newspaper or watching television: Not at all Moving or speaking so slowly that other people could have noticed; or the opposite, being so fidgety or restless that you have been moving around a lot more than usual: Not at all Thoughts that you would be b niki off or of hurting yourself in some way: Not at all Total Score: 0 Interpretation and Intervention Depression Oriana susan Findings: Negative Follow-Up for Depression: : review of PH Q-9 found negative result, no follow-up needed SDOH Questions SDOH Questions In the past year have you been worried about losing housing?: No In the past year have you or any family members you live with been unable to get any of the following when it was really needed? Check all that apply:: None Communication Needs Communication Needs Does the patient have a hearing impairment: No Does the patient have a vision impairmen t?: Yes If yes, what is the vision impairment?: Glasses Does the patient have a cognition impair ment?: No Examination Category Sub-Category Detail Notes Category Not es General Examination GENERAL APPEARANCE: well dev eloped, well nourished, in no acute distress HEAD: normocephalic, atrau matic EYES: pupils equal, round, reactive to light and accommodation, sclera non-icteric EARS: normal THROAT: clear NECK/THYROID: neck supple, full ra nge of motion, no cervical lymphadenopathy, no bruits HEART: regular rate and rhy thm, S1, S2 normal, no murmurs LUNGS: clear to auscultatio n bilaterally ABDOMEN: soft, nontender, non distended, bowel sounds present, normal, no organomegaly , no masses palpable NEUROLOGIC: nonfocal, motor stre ngth normal upper and lower extremities, sensory exam intact SKIN: warm and dry, no leandra picious lesions EXTREMITIES: no clubbing, cyanosi s, or edema MALE GENITOURINARY: uncircumcised , no t esticular mass , testes descended bilaterally RECTAL EXAM: normal tone, no exte rnal hemorrhoids, no masses palpable, prostate normal, stool guaiac negative ORAL CAVITY: mucosa moist
--- OUTSIDE RECORDS SUMMARY | 2024-06-22 05:48 | XMS_ITS ---
Author Organization Denys Christianson MD Address [address] [place] [phone] Care Team Providers Care Beam Doffer Name Role Phone Denys Christianson Primary Care Provider [phone] REASON FOR VISIT ER Encounters Encounter Location Date Provider Diagnosis Denys Christianson MD [address] [facility] [address] [place] [phone] 06/22/2024 Denys Christianson Plan Of Treatment Next Appt Details Provider Name:Denys figueroa, 11/15/2025 08:45:00 AM, [address] [place] [address], [address] [place] [address], [phone], Provider Name:Denys Claudio ier, 05/16/2026 07:00:00 AM, [address] [place] [address], [address], [phone], Provider Name:Denys figueroa, 05/23/2026 08:30:00 AM, [address] [place] [address], [address], [phone], Progress Notes * Abdiel NULL ADOB: 2 (64 yo M)Acc No.[id number]:06/22/2024 Patient: Abdiel Mora :1960 A ge:64 Y S ex:Male Address:[address] [place] [id number] * true * Date: Generated for Shlomo cabrales/Kristen/Ulismitting on: 07/18/2024 12:45 PM EST
--- OUTSIDE RECORDS SUMMARY | 2025-02-16 04:15 | XMS_ITS ---
Author Organization Denys Christianson MD Address [address] [place] [phone] Care Team Providers Care Art Editor Name Role Phone Denys Christianson Primary Care Provider REASON FOR VISIT refill Medications Medication SIG (Take, Route, Frequency, Duration) Notes Start Date End Date Status Escitalopram Oxalate 20 MG TAKE 1 TABLET BY MOUTH EVERY DAY Orally Once a day for 90 days Active Encounters Encounter Location Date Provider Diagnosis Denys Christianson MD [address] [facility] [address] [place] [phone] 02/16/2025 Denys Christianson Plan Of Treatment Medication Medication Name Sig Start Date Stop Date Notes Escitalopram Oxalate 20 MG TAKE 1 TABLET BY MOUTH EVERY DAY Orally Once a day for 90 days Next Appt Details Provider Name:Denys figueroa, 11/15/2025 08:45:00 AM, [address] [place] [address], [address], [phone], Provider Name:Denys figueroa, 05/16/2026 07:00:00 AM, [address] [place] [address], [address], [phone], Provider Name:Denys figueroa, 05/23/2026 08:30:00 AM, [address], [address], [place], [place], [phone], Progress Notes * Abdiel NULL ADOB: 2 (64 yo M)Acc No.[id number]:02/16/2025 Patient: Abdifatah Abdiel BANSAL :1960 A ge:64 Y S ex:Male Address:[address] [place] [id number] * Refills Refill Escitalopram Oxalate Tablet, 20 MG, Orally, 90, TAKE 1 TABLET BY MOUTH EVERY DAY, Once a day, 90 days, Refills=5 * true * Date: Generated for Shlomo cabrales/Kristen/Darnellitting on: 07/18/2024 12:45 PM EST
--- OUTSIDE RECORDS SUMMARY | 2025-05-11 02:45 | XMS_ITS ---
Author Organization Denys Christianson MD Address [address] [place], [place] [id number] Care Team Providers Care Scientist/Engineer Name Role Phone Denys Christianson Primary Care Provider Results Component Value Reference Range Notes Complete Blood Count Auto Di ff Reviewed date:05/11/2025 05:03:21 PM Interpretation: Performing Lab:[facility], [address] [place] [phone] Notes/Report: White Blood Count 5.7 4.8-10.8 X10*3/uL Red Blood Count 5.17 4.60-5.80 X10*6/uL Hemoglobin 15.7 14.0-18.0 g/dl Hematocrit 45.7 42.0-52.0 % Mean Corpuscular Volume 88.4 80.0-98.0 fL Mean Corpuscular Hemoglobin 30.4 27.0-33.0 pg Mean Corpuscular HGB Conc 34.4 31.0-36.0 g/dl Red Cell Distribution Width 13.3 11.0-16.0 % Platelet Count 191 160-400 X10*3/uL Mean Platelet Volume 9.6 9.4-12.4 fL Neutrophils Percent Auto 54.4 45-73 % Imm Gran Pct Auto 0.3 0.0-0.4 % Lymphocytes Percent Auto 30.0 20-40 % Monocytes Percent Auto 9.9 2-11 % Eosinophils Percent Auto 4.5 0-4 % Basophils Percent Auto 0.9 0-2 % NRBC Pct Auto 0.0 0.0-0.2 /100WBC Neutrophils Absolute Auto 3.1 2.0-8.3 x10*3/u L Imm Gran Abs Auto 0.02 0.00-0.03 X10*3/uL Lymphocytes Absolute Auto 1.7 1.2-4.9 X10*3/u L Monocytes Absolute Auto 0.6 0.1-1.2 X10*3/uL Eosinophils Absolute Auto 0.3 0.0-0.4 X10*3/u L Basophils Absolute Auto 0.1 0.0-0.2 X10*3/uL NRBC Abs Auto 0.000 0.0-0.012 X10*3/uL Comprehensive [place]. Panel Fa st Reviewed date:05/11/2025 05:17:42 PM Interpretation: Performing Lab:[facility], [address] [place] [phone] Notes/Report: Sodium 142 135-145 mmol/L Potassium 4.0 3.3-5.1 mmol/L Chloride 110 96-108 mmol/L Carbon Dioxide 25 22-29 mmol/L Anion Gap 11 12-20 Blood Urea Nitrogen 20 9-16 mg/dL Creatinine 1.21 0.5-1.4 mg/dL Estimated Glomerular Filt Rate > 60 Chronic Kidney Disease: Estimated GFR < 60 mL/min/1.73m2 Severe Kidney Disease: Estimated GFR < 15 mL/min/1.73m2 Glucose Fasting 123 60-99 mg/dL A fasting glucose from 100-125 mg/dl is considered impaired (pre-diabetes). Calcium 8.5 8.4-10.2 mg/dL Bilirubin Total 0.5 0.0-1.0 mg/dL Aspartate Amino Transferase 26 5-37 U/L Alanine Aminotransferase 30 0-40 U/L Total Protein 7.5 6.5-8.0 g/dL Albumin Level 4.3 3.5-5.0 g/dL Alkaline Phosphatase 68 39-117 U/L Lipid Panel Reviewed date:05/11/2025 12:50:02 PM Interpretation: Performing Lab:[facility], [address] [place] [phone] Notes/Report: Triglycerides 129 <150 mg/dL Desirable Triglyceride: less than 150 mg/dL Borderline High Triglyceride 150-199 mg/dL High Triglyceride: 200-499 mg/dL Very High Triglyceride: greater than or equal to 5OO mg/dL Cholesterol 216 <200 mg/dL Desirable Cholesterol: less than 200 mg/dL Borderline High Cholesterol: 200-239 mg/dL High Cholesterol: greater than 239 mg/dL LDL Cholesterol Calculated 146 <100 mg/dL Desirable LDL: less than 100 mg/dL Near Optimal/Above Optimal LDL: 110-129 mg/dL Borderline High LDL: 130-159 mg/dL High LDL: 160-189 mg/dL Very High LDL: greater than or equal to 190 mg/dL HDL Cholesterol 45 >40 mg/dL Desirable HDL: greater than 40 mg/dL Note: This HDL assay may give artificially low results in patients with liver disease. PSA,Total (Free>4and<10) Reviewed date:05/11/2025 12:47:56 PM Interpretation: Performing Lab:[facility], [address] [place] [phone] Notes/Report: PSA,Total (Free>4and<10) 0.22 0.00-4.00 ng/mL A Free PSA was not [...] [place] Alinity i Chemiluminescent Microparticle Immunoassay (CMIA) Hemoglobin A1c Reviewed date:05/11/2025 12:34:40 PM Interpretation: Performing Lab:[facility], [address] [place] [phone] Notes/Report: Hemoglobin A1c % 5.9 <6.0 % Hemoglobin A1C Reference Range Adults: 4.8 - 6.0 % Non diabetic: < 6.0 % Goal: < 7.0 % Additional Action Suggested: > 8.0 % Note: Hemoglobin A1c results are invalid for patients with abnormal amounts of HbF. Blood transfusions may impact the HbA1c concentration in the patient sample. Estimated Average Glucose 123 eAG = Estimated average glucose which is %A1C expressed as average glucose, using the formula of the F4K-Fipybuv Average Glucose study (ADAG), Diabetes Care, Vol.31,#8, Feb. 2007 REASON FOR VISIT yearly fasting labs Immunizations Vaccine Route Administration Date Status Comme nts Fluarix Quadrivalent - 150 IM Intramuscular 05/11/2025 Adm inistered Encounters Encounter Location Date Provider Diagnosis Denys Christianson MD [address] [place] [address] [place] [phone] 05/11/2025 Denys Christianson Blood tests for rout ine general physical examination Z00.00 ; Encounter for administration of vaccine Z23 ; Prediabetes R73.09 and Thrombocytopenia D69.6 Assessments Encounter Date Diagnosis (ICD Code) Assessment Notes Treatment Notes Treatment Clinical Notes Section Notes 05/11/2025 Blood tests for routine general physical examination (ICD-10 - Z00.00) 05/11/2025 Encounter for administration of vaccine (ICD-10 - Z23) 05/11/2025 Prediabetes (ICD-10 - R73.09) 05/11/2025 Thrombocytopenia (ICD-10 - D69.6) Plan Of Treatment Pending Test Test Name Order Date Microalbumin, Random 05/11/2025 UA ClnCatch+Micro w/rflx Cult 05/11/2025 Next Appt Details Provider Name:Denys figueroa, 11/15/2025 08:45:00 AM, [address] [place] [address], [address], [phone], Provider Name:Denys figueroa, 05/16/2026 07:00:00 AM, [address] [place] [address], [address], [phone], Provider Name:Denys figueroa, 05/23/2026 08:30:00 AM, [address] [place] [address], [address], [phone], Progress Notes * Abdiel NULL ADOB: 2 (65 yo M)Acc No.[id number]:05/11/2025 Progress Note Patient: Abdiel PANDA Provider: Jasmyne Christianson MD :1960 A ge:65 Y S ex:Male Date:05/11/2025 Address:[address] [place] [address] Subjective: * Chief Complaints: * 1 . Yearly fasting labs. * Medical History: Objective: * Vitals: Assessment: * Assessment: 1. E ncounter for administration of vaccine - Z23 (Primary) 2 . B lood tests for routine general physical examination - Z00.00 3 . P rediabetes - R73.09? 4. T hrombocytopenia - D69.6 Plan: * Treatment: 2. P rediabetes L AB: Microalbumin, Random L AB: UA ClnCatch+Micro w/rflx Cult L AB: Complete Blood Count Auto Diff (Collection Date & Time - 05/11/2025 08:00 AM) L AB: Comprehensive [place]. Panel Fast (Collection Date & Time - 05/11/2025 08:00 AM) L AB: Lipid Panel (Collection Date & Time - 05/11/2025 08:00 AM) L AB: PSA,Total (Free>4and<10) (Collection Date & Time - 05/11/2025 08:00 AM) L AB: Hemoglobin A1c (Collection Date & Time - 05/11/2025 08:00 AM) 3. T hrombocytopenia L AB: Microalbumin, Random L AB: UA ClnCatch+Micro w/rflx Cult L AB: Complete Blood Count Auto Diff (Collection Date & Time - 05/11/2025 08:00 AM) L AB: Comprehensive [place]. Panel Fast (Collection Date & Time - 05/11/2025 08:00 AM) L AB: Lipid Panel (Collection Date & Time - 05/11/2025 08:00 AM) L AB: PSA,Total (Free>4and<10) (Collection Date & Time - 05/11/2025 08:00 AM) L AB: Hemoglobin A1c (Collection Date & Time - 05/11/2025 08:00 AM) * Immunizations: Fluarix Quadrivalent - 150 : 0.5 mL (Dose No:1) (Route: Intramuscular) given by Georgina Holt , Office Staff on Left Deltoid * Procedure Codes: 3 6415 VENIPUNCT, ROUTINE*, 25313 FLU VACCINE NO PRESERV 3 & >, [address] IMMUNIZATION ADMIN * * The named appointment provid er may or may not be the originator of this progress note, and it is not deemed complete until electronically signed by the appointment provider. Sign off status: Pending * Provider: Jasmyne Christianson MD Date: Generated for Shlomo cabrales/Kristen/Darnellitting on: 07/18/2024 12:44 PM EST
--- OUTSIDE RECORDS SUMMARY | 2025-05-18 03:30 | XMS_ITS ---
Author Organization Denys Christianson MD Address [address] [place], [place] [phone] Care Team Providers Care Therapeutic Case Manager Name Role Phone Denys Christianson Primary Care Provider Allergies Allergen (clinical drug ingredient) Drug/Non Drug Allergy documented on EMR Reaction Allergy Type Onset Date Status bees (uncoded) body swelling Allergy A ctive Results Component Value Reference Range Notes Occult Blood, Stool, Guaiac Reviewed date:05/18/2025 09:49:48 AM Interpretation:Negative Performing Lab: Notes/Report: Negative Occult Blood, Stool, Guaiac Neg Microalbumin, Random Reviewed date:05/18/2025 12:41:18 PM Interpretation: Performing Lab:[facility], [address] [place] [phone] Notes/Report: Creatinine Urine 151.65 Microalbumin Urine 6.0 Microalbum/Creatinine Ratio Ur 3.9 <30 ug/mg cr Albumin/Creatinine Ratio Reference Ranges: Normal: < 30 ug/mg creatinine Microalbuminuria: 30 - 300 ug/mg creatinine Clinical Albuminuria: > 300 ug/mg creatinine UA ClnCatch+Micro w/rflx Cul t Reviewed date:05/18/2025 12:42:45 PM Interpretation: Performing Lab:[facility], [address], [place] [address] Notes/Report: Urine, Clean Catch Color Urine Yellow Appearance Urine Clear PH 5.5 5.0-9.0 Glucose Urine UA Negative Negative mg/dL Urine Blood Negative Negative Specific [place] - Urine 1.015 1.005-1.025 Urine Protein Negative Neg-Trace mg/dL Urine Ketones Negative Negative mg/dL Nitrite Urine Negative Negative Leukocyte Esterase Urine Negative Negative RBC Urine 0-2 0-2 /HPF WBC Urine 0-5 0-5 /HPF Squamous Epithelial Cell Urine 0-2 0-2 /HPF Bacteria Urine None Seen None Seen Hyaline Casts Urine 0-2 0-2 /LPF REASON FOR VISIT annual visit Medications Medication SIG (Take, Route, Frequency, Duration) Notes Start Date End Date Status Escitalopram Oxalate 20 MG TAKE 1 TABLET BY MOUTH EVERY DAY Orally Once a day for 90 days Active Social History Tobacco Use: Social History [...] Interpretation Negative Vital Signs Blood pressure systolic 112 mm Hg 05/18/20 25 Blood pressure diastolic 80 mm Hg 025 Height 67.5 in 05/18/2025 Weight 211 lbs 05/18/2025 BMI 32.56 kg/m2 05/18/2025 weight is down 5 pounds [facility] 05-15-24 Encounters Encounter Location Date Provider Diagnosis Denys Christianson MD [address] [place] [address] [address] [place], [place] [phone] 05/18/2025 Denys Christianson Adult general medical exam Z00.00 ; Prediabetes R73.09 ; Anxiety attack F41.0 ; Abnormal results of liver function studies R94.5 ; Colon cancer screening Z12.11 and Depression screen Z13.31 Assessments Encounter Date Diagnosis (ICD Code) Assessment Notes Treatment Notes Treatment Clinical Notes Section Notes 05/18/2025 Adult general medical exam (ICD-10 - Z00.00) labs reviewed and discussed with patient 05/18/2025 Prediabetes (ICD-10 - R73.09) needs to lose weight. , advised on diet and exercise 05/18/2025 Anxiety attack (ICD-10 - F41.0) has been doing well with the paxil, will cntinue current regiment 05/18/2025 Abnormal results of liver function studies (ICD-10 - R94.5) has returned to normal, will cntnue to monitor 05/18/2025 Colon cancer screening (ICD-10 - Z12.11) guaiac negative 05/18/2025 Depression screen (ICD-10 - Z13.31) negative screen Plan Of Treatment Treatment Notes Assessment Notes Adult general medical exam labs reviewed and discussed with patient Prediabetes needs to lose weight . , advised on diet and exercise Anxiety attack has been doing well with the paxil, will cntinue current regiment Abnormal results of liver function studi es has returned to normal, will cntnue to monitor Colon cancer screening guaiac negative Depression screen negative screen Next Appt Details Follow Up: 6 Months, Reason: Provider Name:Denys figueroa, 11/15/2025 08:45:00 AM, [address] [place] [address], [address], [phone], Provider Name:Denys figueroa, 05/16/2026 07:00:00 AM, [address] [place] [address], [address], [phone], Provider Name:Denys figueroa, 05/23/2026 08:30:00 AM, [address] [place] [address], [address], [phone], Progress Notes * Abdiel NULL ADOB: [birth year] (65 yo M)Acc No.[id number]:05/18/2025 Progress Notes Patient: Abdiel PANDA Provider: Jasmyne Christianson MD :1960 A ge:65 Y S ex:Male Date:05/18/2025 Address:[address] [id number] Subjective: * Chief Complaints: * 1 . Annual visit. * HPI: D epression Screening: pain in midle finger rt hand. PHQ-9 L ittle interest or pleasure in [...] patient have a cognition impairment? N o. F all Risk: History H ave you had any falls with injury in the past year? N o, H ave you had two or more falls in the past year? N o. S REBEL Questions: SDOH Questions I n the past year have you been worried about losing housing? N o, I n the past year have you or any family members you live with been unable to get any of the following when it was really needed? Check all that apply: N one. S ymptom(s): patient is a 65 yo male here for annual visit with [...] d enies. H eadache?denies. * Medical History: C olonoscopy 12/25/[address] Casper, had colonoscopy 03/12/19 repeat in 5 years02/24/24 repeat 5y. * Family History: F ather: 74 yrs, lung cancer. M other: 74 yrs, brain cancer. 2 brother(s) , 5 sister(s) . . sister brother dad alcohol and medication no mental illnss, Denies mental health father and sisiter alcolic, Denies mental health/substance abuse family history, No pertinent family medical history. * Social History: T obacco Use: T obacco Use/Smoking P attejas is a f ormer smoker, H ow [...] frequency:, 1-2 cups per day. Children: yes. Community involvements: no. Exercise: no. Housing: owning. Living with: spouse. Marital status: . Occupation: works full-time. Pets: dogs. * Medications: T aking Escitalopram Oxalate 20 MG Tablet TAKE 1 TABLET BY MOUTH EVERY DAY Orally Once a day , Medication List reviewed and reconciled with the patient * Allergies: B ees: Body Swelling. Objective: * Vitals: H t: 67.5, Wt: 211, BMI:32.56, BP:112/80, Wt-k.71. weight is down 5 pounds since 05-15-24. * P ast Orders: L ab:Lipid Panel (Order Date - 05/11/2025) (Collection Date & Time - 05/11/2025 08:00 AM) Value Reference Range Triglycerides 129 <150 - mg/dL Cholesterol 216 H <200 - mg/dL LDL Cholesterol Calculated 146 H <100 - mg/dL HDL Cholesterol 45 >40 - mg/dL L ab:PSA,Total (Free>4and<10) (Order Date - 05/11/2025) (Collection Date & Time - 05/11/2025 08:00 AM) Value Reference Range PSA,Total (Free>4and<10) 0.22 0.00-4.00 - ng/ mL L ab:Hemoglobin A1c (Order Date - 05/11/2025) (Collection Date & Time - 05/11/2025 08:00 AM) Value Reference Range Hemoglobin A1c % 5.9 <6.0 - % Estimated Average Glucose 123 - mg/dL L ab:Complete Blood Count Auto Diff (Order Date - 05/11/2025) (Collection Date & Time - 05/11/2025 08:00 AM) Value Reference Range White Blood Count 5.7 4.8-10.8 - X10*3/uL Red Blood Count 5.17 4.60-5.80 - X10*6/uL Hemoglobin 15.7 14.0-18.0 - g/dl Hematocrit 45.7 42.0-52.0 - % Mean Corpuscular Volume 88.4 80.0-98.0 - fL Mean Corpuscular Hemoglobin 30.4 27.0-33.0 - pg Mean Corpuscular HGB Conc 34.4 31.0-36.0 - g/ dl Red Cell Distribution Width 13.3 11.0-16.0 - % Platelet Count 191 160-400 - X10*3/uL Mean Platelet Volume 9.6 9.4-12.4 - fL Neutrophils Percent Auto 54.4 45-73 - % Imm Gran Pct Auto 0.3 0.0-0.4 - % Lymphocytes Percent Auto 30.0 20-40 - % Monocytes Percent Auto 9.9 2-11 - % Eosinophils Percent Auto 4.5 H 0-4 - % Basophils Percent Auto 0.9 0-2 - % NRBC Pct Auto 0.0 0.0-0.2 - /100WBC Neutrophils Absolute Auto 3.1 2.0-8.3 - x10* 3/uL Imm Gran Abs Auto 0.02 0.00-0.03 - X10*3/uL Lymphocytes Absolute Auto 1.7 1.2-4.9 - X10* 3/uL Monocytes Absolute Auto 0.6 0.1-1.2 - X10*3/ uL Eosinophils Absolute Auto 0.3 0.0-0.4 - X10* 3/uL Basophils Absolute Auto 0.1 0.0-0.2 - X10*3/ uL NRBC Abs Auto 0.000 0.0-0.012 - X10*3/uL L ab:Comprehensive [place]. Panel Fast (Order Date - 05/11/2025) (Collection Date & Time - 05/11/2025 08:00 AM) Value Reference Range Sodium 142 135-145 - mmol/L Bilirubin Total 0.5 0.0-1.0 - mg/dL Aspartate Amino Transferase 26 5-37 - U/L Alanine Aminotransferase 30 0-40 - U/L Total Protein 7.5 6.5-8.0 - g/dL Albumin Level 4.3 3.5-5.0 - g/dL Alkaline Phosphatase 68 39-117 - U/L Potassium 4.0 3.3-5.1 - mmol/L Chloride 110 H 96-108 - mmol/L Carbon Dioxide 25 22-29 - mmol/L Anion Gap 11 L 12-20 - Blood Urea Nitrogen 20 H 9-16 - mg/dL Creatinine 1.21 0.5-1.4 - mg/dL Estimated Glomerular Filt Rate > 60 - Glucose Fasting 123 H 60-99 - mg/dL Calcium 8.5 8.4-10.2 - mg/dL * Examination: G eneral Examination: GENERAL APPEARANCE: [...] prostate normal, stool guaiac negative. MALE GENITOURINARY: c ircumcised, testes descended bilaterally, no testicular mass. EXTREMITIES: n o clubbing, cyanosis, or edema. NEUROLOGIC: n onfocal, motor strength normal upper and lower extremities, sensory exam intact. Assessment: * Assessment: 1. A dult general medical exam - Z00.00 (Primary) 2 . P rediabetes - R73.09? 3. A nxiety attack - F41.0 4 . A bnormal results of liver function studies - R94.5 5 . C olon cancer screening - Z12.11 6 . D epression screen - Z13.31 Plan: * Treatment: 2. P rediabetes L AB: Microalbumin, Random (Collection Date & Time - 05/18/2025 08:30 AM) L AB: UA ClnCatch+Micro w/rflx Cult (Collection Date & Time - 05/18/2025 08:30 AM) Notes: needs to lose weight. , advised on diet and exercise 3. A nxiety attack Notes: has been doing well with the paxil, will cntinue current regiment 4. A bnormal results of liver function studies Notes: has returned to normal, will cntnue to monitor 5. C olon cancer screening L AB: Occult Blood, Stool, Guaiac (Collection Date & Time - 05/18/2025) N egative Value Reference Range O ccult Blood, Stool, Guaiac Neg Notes: guaiac negative??6.?Depression screen? Notes: negative screen?? * Procedure Codes: 8 2270 TEST FOR BLOOD, FECES * Follow Up: 6 Months * * The named appointment provid er may or may not be the originator of this progress note, and it is not deemed complete until electronically signed by the appointment provider. Sign off status: Pending * Provider: Jasmyne Christianson MD Date: 07/18/2024 Generated for Shlomo cabrales/Kristen/Darnellitting on: 07/18/2024 12:44 PM EST History and Physical Notes * HPI (History of Present Illness) Category Sub-Category Detail Notes Category Not es Symptom(s) patient is a 65 yo male here for annual visit with review of recent labs and follow up of chronic issues Depression Screening PHQ-9 Little inte rest or [...] really needed? Check all that apply:: None Fall Risk History Have you had any falls with injury i n the past year?: No Have you had two or more falls in the st year?: No Communication Needs Communication Needs Does the patient [...] clubbing, cyanosi s, or edema MALE GENITOURINARY: circumcised, testes descended bilaterally, no testicular mass RECTAL EXAM: normal tone, no exte rnal hemorrhoids, no masses palpable, prostate normal, stool guaiac negative ORAL CAVITY: mucosa moist
[2025-05-18 11:13] LABS: Appearance Urine Clear; Glucose Urine UA Negative (Negative); PH 5.5 (5.0-9.0); Specific Gravity - Urine 1.015 (1.005-1.025)
[2025-05-18 11:34] LABS: Microalbum/Creatinine Ratio Ur 3.9 ug/mg cr (<30)
--- OUTSIDE RECORDS SUMMARY | 2025-05-18 12:44 | XMS_ITS | Patient Health Record ---
Author Organization Denys Christianson MD Address [address] [place], [place] [id number] Care Team Providers Care Magician/Illusionist Name Role Phone Denys Christianson Primary Care Provider Allergies Allergen (clinical drug ingredient) Drug/Non Drug Allergy documented on EMR Reaction Allergy Type Onset Date Status bees (uncoded) body swelling Allergy A ctive Results Component Value Reference Range Notes Complete Blood Count Auto Di ff Reviewed date:05/11/2025 05:03:21 PM Interpretation: Performing Lab:[facility], [address] [place] [phone] Notes/Report: White Blood Count 5.7 4.8-10.8 X10*3/uL [...] NRBC Abs Auto 0.000 0.0-0.012 X10*3/uL Comprehensive [employer]. Panel Fa st Reviewed date:05/11/2025 05:17:42 PM Interpretation: Performing Lab:[facility], [address] [place] [phone] Notes/Report: Sodium 142 135-145 mmol/L Potassium 4.0 [...] Panel Reviewed date:05/11/2025 12:50:02 PM Interpretation: Performing Lab:[facility], [address] [place] [phone] Notes/Report: Triglycerides 129 <150 mg/dL Desirable Triglyceride: [...] (Free>4and<10) Reviewed date:05/11/2025 12:47:56 PM Interpretation: Performing Lab:[facility], [address] [place] [phone] Notes/Report: PSA,Total (Free>4and<10) 0.22 0.00-4.00 ng/mL A [...] A1c Reviewed date:05/11/2025 12:34:40 PM Interpretation: Performing Lab:[facility], [address] [place] [phone] Notes/Report: Hemoglobin A1c % 5.9 <6.0 % [...] average glucose, using the formula of the [id number]-[id number] Average Glucose study (ADAG), Diabetes Care, Vol.31,#8, Feb. 2007 Occult Blood, Stool, Guaiac Reviewed date:05/18/2025 09:49:48 AM Interpretation:Negative Performing Lab: Notes/Report: Negative Occult Blood, Stool, Guaiac Neg Microalbumin, Random Reviewed date:05/18/2025 12:41:18 PM Interpretation: Performing Lab:[facility], [address] [place] [phone] Notes/Report: Creatinine Urine 151.65 Microalbumin Urine 6.0 Microalbum/Creatinine Ratio Ur 3.9 <30 ug/mg cr Albumin/Creatinine Ratio Reference Ranges: Normal: < 30 ug/mg creatinine Microalbuminuria: 30 - 300 ug/mg creatinine Clinical Albuminuria: > 300 ug/mg creatinine UA ClnCatch+Micro w/rflx Cul t Reviewed date:05/18/2025 12:42:45 PM Interpretation: Performing Lab:[facility], [address] [place] [phone] Notes/Report: Urine, Clean Catch Color Urine Yellow Appearance Urine Clear PH 5.5 5.0-9.0 Glucose Urine UA Negative Negative mg/dL Urine Blood Negative Negative Specific [place] - Urine 1.015 1.005-1.025 Urine Protein Negative Neg-Trace mg/dL Urine Ketones Negative Negative mg/dL Nitrite Urine Negative Negative Leukocyte Esterase Urine Negative Negative RBC Urine 0-2 0-2 /HPF WBC Urine 0-5 0-5 /HPF Squamous Epithelial Cell Urine 0-2 0-2 /HPF Bacteria Urine None Seen None Seen Hyaline Casts Urine 0-2 0-2 /LPF XR humerus RT Reviewed date:06/21/2024 11:47:30 AM Interpretation: Performing Lab: Notes/Report: [address] [address] XRay Report Signed Patient: Abdiel Null MR#: [id number] 53 : 1960 Acct:[id number] Age/Sex: 64 / M ADM Date: 06/21/24 Loc: HO.ED Attending Dr: Ordering Physician: Jose G Wong MD Date of Service: 06/21/24 Procedure(s): XR humerus RT Accession Number(s): [id number] cc: Denys Christianson MD; Jose G Wong [...] by: Nathaniel Vargas MD 06/21/2024 10:58 AM [facility] Dictated By: Nathaniel Vargas MD Signed By: <Electronically signed by Nathaniel Vargas MD in OV> 06/21/24 1058 DD/ 0810 TD/TT: 06/21/24 0820 Manager Warehouse: [address] [address] XRay Report Signed Patient: Ted Null MR#: [id number] 53 : 1960 Acct:[id number] Age/Sex: 64 / M ADM Date: 06/21/24 Loc: HO.ED Attending Dr: Ordering Physician: Jose G Wong MD Date of Service: 06/21/24 Procedure(s): XR hum erus RT Accession Number(s): [id number] cc: Denys Christianson MD; Jose G Wong [...] 06/21/24 1058 DD/ 0810 TD/TT: 06/21/24 0820 Manager Warehouse: NITZA XR elbow RT 2V Reviewed date:06/21/2024 11:47:14 AM Interpretation: Performing Lab: Notes/Report: [address] [address] XRay Report Signed Patient: Abdiel Null MR#: [id number] 53 : 1960 Acct:[id number] Age/Sex: 64 / M ADM Date: 06/21/24 Loc: HO.ED Attending Dr: Ordering Physician: Jose G Wong MD Date of Service: 06/21/24 Procedure(s): XR elbow RT 2V Accession Number(s): [id number] cc: Denys Christianson MD; Jose G Wong [...] 06/21/24 1058 DD/ 0810 TD/TT: 06/21/24 0820 Manager Warehouse: NITZA [place] [address] XRay Report Signed Patient: Ted Null MR#: [id number] 53 : 1960 Acct:[id number] Age/Sex: 64 / M ADM Date: 06/21/24 Loc: HO.ED Attending Dr: Ordering Physician: Jose G Wong MD Date of Service: 06/21/24 Procedure(s): XR elb ow RT 2V Accession Number(s): [id number] cc: Denys Christianson MD; Jose G Wong [...] by: Nathaniel Vargas MD 06/21/2024 10:58 AM [facility] [place] Dictated By: Nathaniel Vargas MD Signed By: <Electronically signed by Nathaniel Vargas MD in OV> 06/21/24 1058 DD/ 0810 TD/TT: 06/21/24 0820 Manager Warehouse: NITZA XR forearm RT 2V Reviewed date:06/21/2024 11:47:38 AM Interpretation: Performing Lab: Notes/Report: [address] [address] XRay Report Signed Patient: Abdiel Null MR#: [id number] 53 : 1960 Acct:[id number] Age/Sex: 64 / M ADM Date: 06/21/24 Loc: HO.ED Attending Dr: Ordering Physician: Kalil Norwood Date of Service: 06/21/24 Procedure(s): XR forearm RT 2V Accession Number(s): [id number] cc: Denys Christianson MD; Kalli Norwood EXAMINATION: [...] OV> 06/21/24 1058 DD/ 0802 TD/TT: 06/21/24 08 Manager Warehouse: [place] [address] XRay Report Signed Patient: Ted Null MR#: [id number] 53 : 1960 Acct:[id number] Age/Sex: 64 / M ADM Date: 06/21/24 Loc: HO.ED Attending Dr: Ordering Physician: Kalli Norwood Date of Service: 06/21/24 Procedure(s): XR for earm RT 2V Accession Number(s): [id number] cc: Denys Christianson MD; Kalli Norwood EXAMINATION: [...] OV> 06/21/24 1058 DD/ 1 TD/TT: 06/21/24819 Manager Warehouse: NITZA MR elbow RT wo con Reviewed date:07/04/2024 04:02:43 PM Interpretation: Performing Lab: Notes/Report: [place] [address] Magnetic Resonance Report Signed Patient: Abdiel Null MR#: [id number] 53 : 1960 Acct:[id number] Age/Sex: 64 / M ADM Date: 07/04/24 Loc: HO.MRI Attending Dr: Priscilla Ho PA-C Ordering Physician: Priscilla Ho PA-C Date of Service: 07/04/24 Procedure(s): MR elbow RT wo con Accession Number(s): [id number] cc: Denys Christianson MD; Priscilla Ho PA-C [...] by: Chemo Borrero MD 07/04/2024 01:46 PM [facility] Dictated By: Chemo Borrero MD Signed By: <Electronically signed by Chemo Borrero MD in OV> 07/04/24 1346 DD/ 1018 TD/TT: 07/04/24 1110 Manager Warehouse: GUANAKO [place] [address] Magnetic Resonance Report Signed Patient: Ted Null MR#: [id number] 53 : 1960 Acct:[id number] Age/Sex: 64 / M ADM Date: 07/04/24 Loc: .MRI Attending Dr: Georgiana Ho PA-C Ordering Physician: Priscilla Ho PA-C Date of Service: 07/04/24 Procedure(s): MR cristobal ow RT wo con Accession Number(s): [id number] cc: Denys Christianson MD; Priscilla Ho PA-C [...] 07/04/24 1346 DD/ 1018 TD/TT: 07/04/24 1110 Manager Warehouse: DM Reason For Referral No Information Medications [...] Problem Status W/U Status Risk Notes Problem 308216961 Thrombocytopenia (D69.6) Active confirmed Problem 258166507 Abnormal results of liver function studies (R94.5) Active confirmed Problem 478398144 Tubular adenoma of colon (D12.6) Active confirmed Problem 0007323 Prediabetes (R73.09) Active confirmed Problem 33421587173733895 History of smo melyssa (Z87.898) Active confirmed Problem 736294732 Food allergy (Z91.018) Active confirmed Problem Meralgia paresthetica (44405471) Meralgia paraesthetica, right (G57.11) Active confirmed Problem Qualitative platelet disorder (044898697) Abnormal platelets (D69.1) Active confirmed Problem 225327525 Anxiety attack (F41.0) Active confirmed Vital Signs Blood pressure diastolic 80 mm Hg 05/18/2025 nia ght is down 5 pounds since 05-15-24 Height 67.5 in 05/18/2025 weight is down 5 pounds since 05-15-24 Blood pressure systolic 112 mm Hg 05/18/2025 weig ht is down 5 pounds since 05-15-24 Weight 211 lbs 05/18/2025 weight is down 5 pounds since 05-15-24 BMI 32.56 kg/m2 05/18/2025 weight is down 5 pounds since 11-1-24 Encounters Encounter Location Date Provider Diagnosis Denys Christianson MD [address] [place] [phone] 05/11/2025 Denys Christianson Blood tests for rout ine general physical examination Z00.00 ; Encounter for administration of vaccine Z23 ; Prediabetes R73.09 and Thrombocytopenia D69.6 Denys Christianson MD [address] [place] [phone] 05/18/2025 Denys Christianson Adult general medica l exam Z00.00 ; Prediabetes R73.09 ; Anxiety attack F41.0 ; Abnormal results of liver function studies R94.5 ; Colon cancer screening Z12.11 and Depression screen Z13.31 Denys Christianson MD [address] [place] [phone] 06/22/2024 Denys Christianson MD [address] [place] [phone] 02/16/2025 Denys Christianson Assessments Encounter Date Diagnosis (ICD Code) Assessment Notes Treatment Notes Treatment Clinical Notes Section Notes 05/11/2025 Blood tests for routine general physical examination (ICD-10 - Z00.00) 05/11/2025 Encounter for administration of vaccine (ICD-10 - Z23) 05/18/2025 Adult general medical exam (ICD-10 - Z00.00) labs reviewed and discussed with patient 05/18/2025 Prediabetes (ICD-10 - R73.09) needs to lose weight. , advised on diet and exercise 05/11/2025 Prediabetes (ICD-10 - R73.09) 05/18/2025 Anxiety attack (ICD-10 - F41.0) has been doing well with the paxil, will cntinue current regiment 05/11/2025 Thrombocytopenia (ICD-10 - D69.6) 05/18/2025 Abnormal results of liver function studies (ICD-10 - R94.5) has returned to normal, will cntnue to monitor 05/18/2025 Colon cancer screening (ICD-10 - Z12.11) guaiac negative 05/18/2025 Depression screen (ICD-10 - Z13.31) negative screen Plan Of Treatment Pending Test Test Name Order Date Electrocardiogram (EKG) 09/08/2015 Electrocardiogram (EKG) 10/24/2017 Microalbumin, Random 05/11/2025 UA ClnCatch+Micro w/rflx Cult 05/11/2025 Next Appt Details Provider Name:Denys Claudio ier, 11/15/2025 08:45:00 AM, [address] [place] [address], [address], [place], [place], [phone], Provider Name:Denys Claudio ier, 05/16/2026 07:00:00 AM, [address] [place] [address], [address], [place], [place], [phone], Provider Name:Denys Claudio ier, 05/23/2026 08:30:00 AM, [address] [place] [address], [address], [place], [place], [phone], Insurance Providers Payer Name Payer Address Payer Phone Subscriber Number Group Number Insured Name Patient Relationship to Insured Coverage Start Date Coverage End Date [employer] [address] [place], [place] [phone] [id number] Abdiel Null Self - patient is the insured Medical (General) History Medical History History ICD Code Colonoscopy 12/25/[address] Casper, had colonoscopy 03/12/19 repeat in 5 years02/24/24 repeat 5y
--- OUTSIDE RECORDS SUMMARY | 2025-05-18 12:45 | XMS_ITS | Patient Health Record ---
Author Organization [facility] Address [address] [place] [address] Care Team Providers Care Assistant Chief Nursing Officer Name Role Phone Denys Christianson MD Primary Care Provider Karma Mitchell Unavailable [phone] Allergies No Known Allergies Reason For Referral [...] Problem Screening for malignant neoplasm of colon (670271137) Encounter for screening for malignant neoplasm of colon (Z12.11) Active confirmed Problem History of adenomatous polyp of colon (686238314) History of adenomatous polyp of colon (Z86.010) Active confirmed Problem History of polyp of colon (situation) (010578274) Personal history of colonic polyps (Z86.010) Active confirmed Problem Diverticular disease of colon (611941792) Diverticulosis of large intestine without perforation or abscess without bleeding (K57.30) Active confirmed Problem Preprocedural examination (457612809499851) Preprocedural examination (Z01.818) Active confirmed Plan Of Treatment Future Test Test Name Order Date COLONOSCOPY 10/14/2013 COLONOSCOPY 02/03/2019 COLONOSCOPY 09/26/2023 Insurance Providers Payer Name Payer Address Payer Phone Subscriber Number Group Number Insured Name Patient Relationship to Insured Coverage Start Date Coverage End Date [facility] [employer] [address] [place] [address] [id number] KARMA NULL Self - patient is the insured Medical (General) History Medical History History ICD Code Denies OR,DM,CVA,Lung [...]
== END 2025-05-18 10:43 | disposition home or self-care (01) ==
LOC: HO.LNP 10:42
PROVIDERS: Visit Provider Internal Medicine
DX: Z00.00 Encounter for general adult medical examination without abnormal findings (principal); R73.09 Other abnormal glucose
CPT/HCPCS: 81001; 82043; 82570